=== PATIENT | female | born 1955 | race Caucasian/White ===

== ENCOUNTER 2017-09-30 06:56 | Day surgery (SDC) | payer MEDICARE, BC ==
[~2017-09-30 06:56] MED LIST: Lidocaine 1% with EPINEPHrine 1:100,000 50 ML MDV ONE
[2017-09-30] MEDS ORDERED: Dextrose 5%-Lactated Ringers 1,000 ML IV SCH (07:30)
[2017-09-30] MEDS ORDERED: Clindamycin Phosphate 900 MG in Sodium Chloride 0.9% 100 ML IV ONE (08:00)
[2017-09-30] MEDS ORDERED: Midazolam 1 MG/ML 2 ML SDV ONE (08:11)
[2017-09-30] MEDS ORDERED: fentaNYL 100 MCG/2 ML SDV ONE (08:11)
[2017-09-30] MEDS ORDERED: Propofol 200 MG/20 ML SDV ONE (08:11)
[2017-09-30] MEDS ORDERED: Lidocaine 0.5% 50 ML SDV ONE (08:13)
[2017-09-30] MEDS ORDERED: HYDROmorphone 2 MG Tab PO PRN (09:42)
[2017-09-30 10:21] VITALS: BP 168/80
--- NOTE | 2017-09-30 15:27 | OR ---
DATE OF PROCEDURE: 09/30/2017 PREOPERATIVE DIAGNOSIS: Recurrent right carpal tunnel syndrome. POSTOPERATIVE DIAGNOSIS: Recurrent right carpal tunnel syndrome. OPERATIVE PROCEDURE: Right carpal tunnel release ([id number]). ANESTHESIA: IV block plus sedation. METAL MACHINE SETTER: Shahana Shukla MS-3. INDICATION FOR PROCEDURE: This is a 62-year-old presenting with recurrent carpal tunnel syndrome. She originally had bilateral carpal tunnel releases in 1992, presents now with recurrent symptoms on the right side predominantly. An EMG was obtained which confirmed compression of the median nerve at the carpal tunnel. The plan is to proceeded with a redo carpal tunnel release. Potential risks including bleeding, infection, injury to underlying structures such as the median nerve and/or its branches, possible incomplete relief of symptoms following the procedure were all reviewed, and the patient wishes to proceed. DETAILS OF PROCEDURE: The patient was taken to the operating room and placed in a supine position. IV sedation was administered after which an intravenous block was placed affecting the right forearm and hand. Those areas were then prepped and draped. The patient did have quite a bit in the way of retained blood within the arm, but this was evacuated as needed during the course of the procedure. A standard carpal tunnel incision was made and carried down through the skin and subcutaneous tissue. The transverse carpal ligament was identified and then divided for the length of the carpal tunnel, including extending onto the palm of hand. It was quite thick and did retract under considerable tension. The underlying median nerve was otherwise intact. During the division of the median nerve, care was taken to maintain an ulnar orientation with regard to the underlying nerve to minimize chances of nerve branch injuries. At that point, no further problems were noted. The subdermal tissues were approximated with some 4-0 Vicryl stitch, and the skin with a 5-0 Prolene skin stitch. Dressing was applied. The patient was taken to the recovery room in a satisfactory condition. There were no evident complications. Ruben Evans MD /[id number]
== END 2017-09-30 10:38 | disposition home or self-care (01) ==
LOC: JP.SDS 06:56
PROVIDERS: ATTEND Surgery
DX: G56.01 Carpal tunnel syndrome, right upper limb (principal); I10 Essential (primary) hypertension; K21.9 Gastro-esophageal reflux disease without esophagitis; E66.9 Obesity, unspecified; Z88.0 Allergy status to penicillin; Z88.1 Allergy status to other antibiotic agents; Z91.09 Other allergy status, other than to drugs and biological substances
CPT/HCPCS: 64721; A9270; J2250; J2704; J3010; J7030; J7042; S0077

== ENCOUNTER 2018-02-25 20:22 | Inpatient (IN) | payer MEDICARE, BC ==
[2018-02-25] MEDS ORDERED: Ondansetron 4 MG/2 ML SDV IVPUSH ONE (21:13)
[2018-02-25] MEDS ORDERED: HYDROmorphone 0.5 MG/0.5 ML Syringe IVPUSH ONE (21:13)
[2018-02-25] MEDS ORDERED: Sodium Chloride 0.9% 1,000 ML IV SCH (21:15)
--- NOTE | 2018-02-25 21:18 | EDM.PDOC ---
ED HPI GENERAL MEDICAL PROBLEM - General Chief Complaint: Abdominal Pain Stated Complaint: BLADDER/RECTAL PAIN Time Seen by Provider: 02/25/18 21:00 Source of Information: Reports: Patient History Limitations: Reports: No Limitations - History of Present Illness INITIAL COMMENTS - FREE TEXT/NARRATIVE: Cavity is a 62-year-old female who presents to the emergency Department today with complaints of lower abdominal pain and pressure. Patient is concerned that her bladder is coming out of she has had a rectocele and cystocele in the past. Patient reports that she did have cheese with dinner which normally, some GI upset but this is worse than normal. Patient has not taken anything for pain, she reports bile-type diarrhea, she does endorse nausea but denies any vomiting. Patient has had her gallbladder out in the past, she denies any excessive alcohol use. Patient denies any hematochezia. Onset: Today, Sudden Duration: Day(s): (1) Treatments BOOKKEEPER ASSISTANT: Reports: Other (see below) Other Treatments BOOKKEEPER ASSISTANT: none Lower Pelvic Pain Score (Numeric/FACES): 10 - Related Data Allergies Allergy/AdvReac Type Severity Reaction Status Date / Time Penicillins Allergy Severe Difficulty Verified 02/25/18 21:08 Breathing alcohol Allergy Swelling Verified 02/25/18 21:08 hydromorphone [From Dilaudid] Allergy Airway Verified 02/25/18 22:51 Tightness tetracycline Allergy Rash Verified 02/25/18 21:08 Home Meds: Home Meds Allopurinol [Zyloprim] 100 mg PO BID 08/30/13 [History] Metoprolol Succinate [Toprol XL] 50 mg PO DAILY 08/30/13 [History] Levothyroxine Sodium [Synthroid] 25 mcg PO DAILY 11/19/14 [History] Multivit-Min/Iron Fum/Folic AC [Zgleq-Pepxpzt-Vznbysqx Tablet] 1 each PO DAILY 09/29/17 [History] Celecoxib 200 mg PO DAILY 02/25/18 [History] Past Medical History HEENT History: Reports: Impaired Vision Other HEENT History: readers Cardiovascular History: Reports: Hypertension Gastrointestinal History: Reports: Chronic Constipation Genitourinary History: Reports: Other (See Below) Other Genitourinary History: bladder IMPORT/EXPORT SPECIALIST History: Reports: Endometriosis, Musculoskeletal History: Reports: None Neurological History: Reports: Concussion, Head Trauma Psychiatric History: Reports: Anxiety Endocrine/Metabolic History: Reports: Hypothyroidism, Obesity/BMI 30+ - Infectious Disease History Infectious Disease History: Reports: Chicken Pox, Measles, Mumps, Pertussis ( Whooping Cough), Shingles - Past Surgical History Head Surgeries/Procedures: Reports: None HEENT Surgical History: Reports: LASIK, Tonsillectomy Cardiovascular Surgical History: Reports: None GI Surgical History: Reports: Cholecystectomy Other GI Surgeries/Procedures: Yvonne Fundoplication Female Surgical History: Reports: Breast Biopsy, Breast Reduction, Hysterectomy Endocrine Surgical History: Reports: None Neurological Surgical History: Reports: Other (See Below) Other Neurological Surgeries/Procedures: rods in lower back Musculoskeletal Surgical History: Reports: Other (See Below) Other Musculoskeletal Surgeries/Procedures:: 4 rods in back Dermatological Surgical History: Reports: Skin Biopsy Social & Family History - Family History Family Medical History: Noncontributory - Caffeine Use Caffeine Use: Reports: Coffee, Soda ED ROS GENERAL - Review of Systems Review Of Systems: ROS reveals no pertinent complaints other than HPI. ED EXAM, GI/ABD - Physical Exam Exam: See Below Exam Limited By: No Limitations General Appearance: Alert, WD/WN, No Apparent Distress Ears: Normal External Exam Throat/Mouth: Normal Oropharynx Head: Atraumatic Respiratory/Chest: No Respiratory Distress, Lungs Clear, Normal Breath Sounds Cardiovascular: Normal Peripheral Pulses, Regular Rate, Rhythm, No Murmur GI/Abdominal Exam: Normal Bowel Sounds, Soft, Tender (generalized) (Female) Exam: Normal External Exam, Normal Bimanual Exam. No: Vaginal Discharge Neurological: Alert, Oriented Psychiatric: Normal Affect, Normal Mood Skin Exam: Warm, Dry, Intact Course - Vital Signs Last Recorded V/S: Last Vital Signs Temp 36.3 C 02/25/18 21:57 Pulse 74 02/25/18 23:38 Resp 14 02/25/18 21:57 BP 160/80 H 02/25/18 23:38 Pulse Ox 95 02/25/18 23:38 0-patient had Dilaudid and then developed a tight sensation in her throat and redness around her neck, she was given Benadryl and Solu-Medrol with resolution of her symptoms. Patient is not certain if she has had Dilaudid in the past, she is not certain if she has had morphine in the past. Patient reports that she gets older she seems to be developing more allergies. 2300-awaiting CT scan results, patient did have a white count of 12.3 with a left shift, CMP returns with a potassium of 3.5, BUN of 26 and creatinine 1.3. CRP is mildly elevated at 0.7. Patient is feeling much better, she is so far had a liter of fluid and Zofran, her reaction to the Dilaudid seems to have resolved. CT scan shows an acute diverticulitis with contained perforation of the mid sigmoid colon. I discussed her case with her on-call surgeon, Dr. De Leon, he feels patient can be kept here and managed medically. I discussed patient with Dr. Gaona who will be in to admit patient. Patient and family updated on plan of care and are agreeable. Patient was started on Cipro and Flagyl. - Orders/Labs/Meds Orders: Active Orders 24 hr Category Date Time Status Peripheral IV Care [RC] . DIRECTED Care 02/25/18 21:12 Active Abdomen Pelvis w Cont [CT] Stat Exams 02/25/18 22:09 Taken UA W/MICROSCOPIC [URIN] Stat Lab 02/25/18 22:14 Ordered Ciprofloxacin in D5W [Cipro in D5W 400 MG/200 ML] 400 Med 02/26/18 00:19 Active mg Premix Bag 1 bag IV ONETIME Iopamidol [Isovue-300 (61%)] Med 02/25/18 22:30 Active 132 ml IV . DIRECTED Sodium Chloride 0.9% [Normal Saline] 1,000 ml Med 02/25/18 21:15 Active IV ASDIRECTED Sodium Chloride 0.9% [Normal Saline] 80 ml Med 02/25/18 22:30 Active IV ASDIRECTED Sodium Chloride 0.9% [Saline Flush] Med 02/25/18 21:12 Active 10 ml FLUSH ASDIRECTED PRN metroNIDAZOLE/Normal Saline [Flagyl 500 MG in NS 100 ML Med 02/26/18 00:19 Active ] 500 mg Premix Bag 1 bag IV ONETIME Peripheral IV Insertion Adult [OM.PC] Routine Oth 02/25/18 21:12 Ordered Medication Orders Sodium Chloride (Normal Saline) 1,000 mls @ 999 mls/hr IV ASDIRECTED ALLAN Last Admin: 02/25/18 21:28 Dose: 999 mls/hr Sodium Chloride (Normal Saline) 80 mls @ 3 mls/sec IV ASDIRECTED ALLAN Last Admin: 02/25/18 22:39 Dose: 3 mls/sec Ciprofloxacin/Dextrose 400 mg/ (Premix) 200 mls @ 200 mls/hr IV ONETIME ONE Stop: 02/26/18 01:18 Metronidazole 500 mg/ Premix 100 mls @ 100 mls/hr IV ONETIME ONE Stop: 02/26/18 01:18 Last Admin: 02/26/18 00:54 Dose: 100 mls/hr Iopamidol (Isovue-300 (61%)) 132 ml IV . DIRECTED ALLAN Last Admin: 02/25/18 22:39 Dose: 132 ml Sodium Chloride (Saline Flush) 10 ml FLUSH ASDIRECTED PRN PRN Reason: Keep Vein Open Last Admin: 02/25/18 22:39 Dose: 10 ml Admin: 02/25/18 21:49 Dose: 10 ml Admin: 02/25/18 21:30 Dose: 10 ml Labs: Laboratory Tests 02/25/18 02/25/18 02/25/18 Range/Units 21:33 21:33 21:33 WBC 12.3 H (4.5-11.0) K/uL RBC 4.55 (3.30-5.50) M/uL Hgb 13.1 (12.0-15.0) g/dL Hct 40.6 (36.0-48.0) % MCV 89 (80-98) fL MCH 29 (27-31) pg MCHC 32 (32-36) % Plt Count 380 (150-400) K/uL Neut % (Auto) 70 H (36-66) % Lymph % (Auto) 23 L (24-44) % Navarro % (Auto) 7 H (2-6) % Eos % (Auto) 0 L (2-4) % Baso % (Auto) 0 (0-1) % Sodium 141 (140-148) mmol/L Potassium 3.5 L (3.6-5.2) mmol/L Chloride 105 (100-108) mmol/L Carbon Dioxide 29 (21-32) mmol/L Anion Gap 10.5 (5.0-14.0) mmol/L BUN 26 H (7-18) mg/dL Creatinine 1.3 H (0.6-1.0) mg/dL Est Cr Clr Drug Dosing 38.75 mL/min Estimated GFR (MDRD) 42 L (>60) Glucose 102 (74-106) mg/dL Calcium 8.8 (8.5-10.1) mg/dL Total Bilirubin 0.3 (0.2-1.0) mg/dL AST 15 (15-37) U/L ALT 33 (12-78) U/L Alkaline Phosphatase 107 (46-116) U/L C-Reactive Protein 0.87 H (0.0-0.3) mg/dL Total Protein 7.1 (6.4-8.2) g/dL Albumin 3.5 (3.4-5.0) g/dL Globulin 3.6 H (2.3-3.5) g/dL Albumin/Globulin Ratio 1.0 L (1.2-2.2) Lipase 93 (73-393) U/L Urine Color Urine Appearance Urine pH (4.5-8.0) Ur Specific Vincent (1.008-1.030) Urine Protein (NEGATIVE) mg/dL Urine Glucose (UA) (NEGATIVE) mg/dL Urine Ketones (NEGATIVE) mg/dL Urine Occult Blood (NEGATIVE) Urine Nitrite (NEGATIVE) Urine Bilirubin (NEGATIVE) Urine Urobilinogen (NORMAL) mg/dL Ur Leukocyte Esterase (NEGATIVE) Urine RBC (0-5) Urine WBC (0-5) Ur Epithelial Cells Amorphous Sediment Urine Bacteria Urine Mucus // Range/Units 22:14 WBC (4.5-11.0) K/uL RBC (3.30-5.50) M/uL Hgb (12.0-15.0) g/dL Hct (36.0-48.0) % MCV (80-98) fL MCH (27-31) pg MCHC (32-36) % Plt Count (150-400) K/uL Neut % (Auto) (36-66) % Lymph % (Auto) (24-44) % Navarro % (Auto) (2-6) % Eos % (Auto) (2-4) % Baso % (Auto) (0-1) % Sodium (140-148) mmol/L Potassium (3.6-5.2) mmol/L Chloride (100-108) mmol/L Carbon Dioxide (21-32) mmol/L Anion Gap (5.0-14.0) mmol/L BUN (7-18) mg/dL Creatinine (0.6-1.0) mg/dL Est Cr Clr Drug Dosing mL/min Estimated GFR (MDRD) (>60) Glucose (74-106) mg/dL Calcium (8.5-10.1) mg/dL Total Bilirubin (0.2-1.0) mg/dL AST (15-37) U/L ALT (12-78) U/L Alkaline Phosphatase (46-116) U/L C-Reactive Protein (0.0-0.3) mg/dL Total Protein (6.4-8.2) g/dL Albumin (3.4-5.0) g/dL Globulin (2.3-3.5) g/dL Albumin/Globulin Ratio (1.2-2.2) Lipase (73-393) U/L Urine Color Yellow Urine Appearance Clear Urine pH 5.0 (4.5-8.0) Ur Specific Vincent 1.020 (1.008-1.030) Urine Protein Negative (NEGATIVE) mg/dL Urine Glucose (UA) Normal (NEGATIVE) mg/dL Urine Ketones Negative (NEGATIVE) mg/dL Urine Occult Blood Negative (NEGATIVE) Urine Nitrite Negative (NEGATIVE) Urine Bilirubin Negative (NEGATIVE) Urine Urobilinogen Normal (NORMAL) mg/dL Ur Leukocyte Esterase Negative (NEGATIVE) Urine RBC 0-5 (0-5) Urine WBC 0-5 (0-5) Ur Epithelial Cells Moderate Amorphous Sediment Few Urine Bacteria Few Urine Mucus Few Meds: Medications Generic Name Dose Route Start Last Admin Trade Name Freq PRN Reason Stop Dose Admin Sodium Chloride 1,000 mls @ 999 mls/hr 02/25/18 21:15 02/25/18 21:28 Normal Saline IV 999 mls/hr ASDIRECTED ALLAN Administration Sodium Chloride 80 mls @ 3 mls/sec 02/25/18 22:30 02/25/18 22:39 Normal Saline IV 3 mls/sec ASDIRECTED ALLAN Administration Ciprofloxacin/Dextrose 400 mg/ 200 mls @ 200 mls/hr 02/26/18 00:19 Premix IV 02/26/18 01:18 ONETIME ONE Metronidazole 500 mg/ Premix 100 mls @ 100 mls/hr 02/26/18 00:19 02/26/18 00: 54 IV 02/26/18 01:18 100 mls/hr ONETIME ONE Administration Iopamidol 132 ml 02/25/18 22:30 02/25/18 22:39 Isovue-300 (61%) IV 132 ml . DIRECTED ALLAN Administration Sodium Chloride 10 ml 02/25/18 21:12 02/25/18 22:39 Saline Flush FLUSH 10 ml ASDIRECTED PRN Administration Keep Vein Open Discontinued Medications Generic Name Dose Route Start Last Admin Trade Name Freq PRN Reason Stop Dose Admin Diphenhydramine HCl 50 mg 02/25/18 21:42 02/25/18 21:44 Benadryl IVPUSH 02/25/18 21:43 50 mg ONETIME ONE Administration Diphenhydramine HCl Confirm 02/25/18 21:43 02/25/18 21:49 Benadryl Administered 02/25/18 21:44 Not Given Dose 50 mg .ROUTE .STK-MED ONE Hydromorphone HCl 0.5 mg 02/25/18 21:13 02/25/18 21:33 Dilaudid IVPUSH 02/25/18 21:14 0.5 mg ONETIME ONE Administration Methylprednisolone Sodium Succinate 125 mg 02/25/18 21:42 02/25/18 21:45 Solu-Medrol IVPUSH 02/25/18 21:43 125 mg ONETIME ONE Administration Methylprednisolone Sodium Succinate Confirm 02/25/18 21:43 02/25/18 21:49 Solu-Medrol Administered 02/25/18 21:44 Not Given Dose 125 mg .ROUTE .STK-MED ONE Ondansetron HCl 4 mg 02/25/18 21:13 02/25/18 21:30 Zofran IVPUSH 02/25/18 21:14 4 mg ONETIME ONE Administration Departure - Departure Time of Disposition: 02:00 Disposition: Admitted As Inpatient 66 Condition: Good Clinical Impression: Acute diverticulitis of intestine, Perforation bowel - Discharge Information Referrals: Channing Noel MD [Primary Care Provider] - Forms: ED Department Discharge - My Orders Last 24 Hours: My Active Orders 02/25/18 21:12 Peripheral IV Care [RC] . DIRECTED Sodium Chloride 0.9% [Saline Flush] 10 ml FLUSH ASDIRECTED PRN Peripheral IV Insertion Adult [OM.PC] Routine 02/25/18 21:15 Sodium Chloride 0.9% [Normal Saline] 1,000 ml IV ASDIRECTED 02/25/18 22:09 Abdomen Pelvis w Cont [CT] Stat 02/25/18 22:14 UA W/MICROSCOPIC [URIN] Stat 02/25/18 22:30 Iopamidol [Isovue-300 (61%)] 132 ml IV . DIRECTED Sodium Chloride 0.9% [Normal Saline] 80 ml IV ASDIRECTED 02/26/18 00:19 Ciprofloxacin in D5W [Cipro in D5W 400 MG/200 ML] 400 mg Premix Bag 1 bag IV ONETIME metroNIDAZOLE/Normal Saline [Flagyl 500 MG in NS 100 ML] 500 mg Premix Bag 1 bag IV ONETIME - Assessment/Plan Last 24 Hours: My Active Orders 02/25/18 21:12 Peripheral IV Care [RC] . DIRECTED Sodium Chloride 0.9% [Saline Flush] 10 ml FLUSH ASDIRECTED PRN Peripheral IV Insertion Adult [OM.PC] Routine 02/25/18 21:15 Sodium Chloride 0.9% [Normal Saline] 1,000 ml IV ASDIRECTED 02/25/18 22:09 Abdomen Pelvis w Cont [CT] Stat 02/25/18 22:14 UA W/MICROSCOPIC [URIN] Stat 02/25/18 22:30 Iopamidol [Isovue-300 (61%)] 132 ml IV . DIRECTED Sodium Chloride 0.9% [Normal Saline] 80 ml IV ASDIRECTED 02/26/18 00:19 Ciprofloxacin in D5W [Cipro in D5W 400 MG/200 ML] 400 mg Premix Bag 1 bag IV ONETIME metroNIDAZOLE/Normal Saline [Flagyl 500 MG in NS 100 ML] 500 mg Premix Bag 1 bag IV ONETIME
[2018-02-25] MEDS: Sodium Chloride 0.9% 10 ML Syringe FLUSH PRN ×3 (21:30→22:39)
[2018-02-25] MEDS ORDERED: methylPREDNISolone Sodium Succinate 125 MG/2 ML SDV IVPUSH ONE (21:42)
[2018-02-25] MEDS ORDERED: diphenhydrAMINE 50 MG/ML SDV IVPUSH ONE (21:42)
[2018-02-25] MEDS ORDERED: diphenhydrAMINE 50 MG/ML SDV ONE (21:43)
[2018-02-25] MEDS ORDERED: methylPREDNISolone Sodium Succinate 125 MG/2 ML SDV ONE (21:43)
[2018-02-25] MEDS ORDERED: Iopamidol 612 MG/ML 150 ML Bottle IV SCH (22:30)
[2018-02-25] MEDS ORDERED: Sodium Chloride 0.9% 80 ML IV SCH (22:30)
[2018-02-26] MEDS ORDERED: metroNIDAZOLE/Normal Saline 500 MG in Premix Bag 1 BAG IV ONE (00:19)
[2018-02-26] MEDS ORDERED: Ciprofloxacin in D5W 400 MG in Premix Bag 1 BAG IV ONE ×2 (00:19)
[2018-02-26] MEDS ORDERED: Ciprofloxacin in D5W 400 MG in Premix Bag 1 BAG IV SCH ×2 (02:00)
[2018-02-26] MEDS ORDERED: metroNIDAZOLE/Normal Saline 500 MG in Premix Bag 1 BAG IV SCH (02:00)
[2018-02-26] MEDS: Sodium Chloride 0.9% 1,000 ML IV SCH ×3 (02:15→19:27)
--- NOTE | 2018-02-26 03:33 | HP ---
LOCATION: [facility]. CHIEF COMPLAINT: Left lower quadrant abdominal pain. HISTORY OF PRESENT ILLNESS: A 62-year-old who has had a hysterectomy and bladder surgery in the past, ate dinner down at [employer]. On her way home, she started having the discomfort, came home. She had a bowel movement, but it did not help her pain. She came into the emergency room for further evaluation. Once there into the emergency room, was noted to have acute diverticulitis, midsigmoid colon associated with contained perforation. No evidence of abscess formation. Nonspecific focus of gas within the urinary bladder and I was asked to admit the patient for further evaluation and treatment. The patient has had some nausea associated with the pain. PAST MEDICAL HISTORY: 1. She has never had a colonoscopy. She has tried it 3 times, but has failed the prep because of increased nausea. Of note, though, that her sister recently had a polyp removed and she feels like she has probably had diverticulitis in the past and her mom has had colon cancer. Hysterectomy with bladder surgery, she has had her gallbladder removed, she has had back surgery, she has had multiple foot surgeries and just had injections in her feet. 2. Hypothyroidism. MEDICATIONS: Allopurinol 100 mg b.i.d., Celebrex 200 mg daily, levothyroxine 25 mcg daily, metoprolol-XL 50 mg daily, multivitamin. ALLERGIES: PENICILLIN, ALCOHOL, HYDROMORPHONE, TETRACYCLINE. SHE WAS GIVEN DILAUDID HERE AND ENDED UP, I BELIEVE, HAVING A REACTION. SOCIAL HISTORY: She is a nonsmoker. No alcohol use. FAMILY HISTORY: Mother with colon cancer. Sister, she thinks with diverticulitis and a polyp removed. REVIEW OF SYSTEMS: Denies headaches, vision changes, upper respiratory symptoms. No chest pain or shortness of breath. She has had nausea with left lower quadrant abdominal pain. No specific urinary symptoms, although she thought may be she had something with her bladder tonight. Denies any swelling in her legs. No skin problems or orthopedic complaints as above with chronic foot problems. OBJECTIVE: VITAL SIGNS: Temperature 36.3, pulse 60s to 70s, blood pressure initially 183/87 and latest was 160/80, O2 saturation 88% on room air, 97% on 2 liters. HEENT: Pharynx: Slightly dry mucous membranes in her mouth. NECK: Supple. No adenopathy or thyromegaly. LUNGS: Clear. HEART: Regular without murmurs. ABDOMEN: Soft, but did have discomfort in the left lower quadrant. There is no mass, organomegaly palpated. No distention. EXTREMITIES: She has scarring of her right foot. There is no swelling in her legs. SKIN: Negative. NEURO: Cranial nerves II through XII grossly intact. Seemed to be alert and oriented. IMAGING: CT scan showed she had sigmoid diverticulitis with contained perforation. No evidence of abscess. Nonspecific focus of gas in the urinary bladder. LABORATORY DATA: White count 12.3 with 70% neutrophils, 23% lymphocytes, 7% monocytes, hemoglobin 13.1, platelets 380,000. Sodium 141, potassium 3.5, BUN is 26, creatinine 1.3, glucose 102. Liver functions were normal. C-reactive protein was 0.87. Urinalysis was negative. ASSESSMENT: 1. Acute sigmoid diverticulitis. The patient has been started on IV metronidazole and Cipro, which we will continue. ER staff has contacted Surgery, I believe, Dr. Arroyo. We will transfer her care to the hospitalist service in the morning. Admit her as inpatient. Anticipate more than 2 midnight stays. 2. The patient had previous hysterectomy with bladder surgery with some recent problems with bladder spasms and she had side effects of initial medication. I am not sure what they put her on. We are going to try another medication, but it was too expensive, so she is going to live with it. Angel Gaona MD /[id number]
[2018-02-26] MEDS ORDERED: Morphine 2 MG/ML Syringe IVPUSH PRN (06:05)
[2018-02-26] MEDS ORDERED: Morphine 2 MG/ML Syringe ONE (06:15)
[2018-02-26] MEDS: Ondansetron 4 MG/2 ML SDV IV PRN (08:34)
[2018-02-26] MEDS ORDERED: fentaNYL/Normal Saline 600 MCG/30 ML PCA Vial IV PRN (10:03)
[2018-02-26] MEDS ORDERED: Naloxone 0.4 MG/ML SDV IVPUSH PRN (10:03)
--- NOTE | 2018-02-26 10:05 | PCM.PN ---
- General Info Date of Service: 02/26/18 Subjective Update: Ms. Zapien is a 62-year-old woman who was admitted last night by Dr. Gaona with left lower quadrant abdominal pain secondary to diverticulitis. Pain started in the evening of admission and progressed, associated with diarrhea. CT scan of the abdomen shows evidence of sigmoid diverticulitis with a microperforation. Since admission has noted persistent pain, did have allergic reaction to Dilaudid in the emergency department. Functional Status: Reports: Urinating - Review of Systems General: Reports: Weakness. Denies: Fever, Chills Pulmonary: Reports: No Symptoms Cardiovascular: Reports: No Symptoms Gastrointestinal: Reports: Abdominal Pain, Decreased Appetite, Diarrhea. Denies : Difficulty Swallowing, Nausea, Vomiting - Patient Data Vitals - Most Recent: Last Vital Signs Temp 96.2 F 02/26/18 08:00 Pulse 58 L 02/26/18 08:00 Resp 16 02/26/18 08:00 BP 142/59 H 02/26/18 08:00 Pulse Ox 92 L 02/26/18 08:00 Weight - Most Recent: 201 lb 3.2 oz I&O - Last 24 Hours: Intake & Output 02/25/18 02/26/18 02/26/18 22:59 06:59 14:59 Intake Total 1844 Output Total 750 Balance 1094 Lab Results Last 24 Hours: Laboratory Results - last 24 hr 02/25/18 02/25/18 02/25/18 Range/Units 21:33 21:33 21:33 WBC 12.3 H (4.5-11.0) K/uL RBC 4.55 (3.30-5.50) M/uL Hgb 13.1 (12.0-15.0) g/dL Hct 40.6 (36.0-48.0) % MCV 89 (80-98) fL MCH 29 (27-31) pg MCHC 32 (32-36) % Plt Count 380 (150-400) K/uL Neut % (Auto) 70 H (36-66) % Lymph % (Auto) 23 L (24-44) % Door % (Auto) 7 H (2-6) % Eos % (Auto) 0 L (2-4) % Baso % (Auto) 0 (0-1) % Sodium 141 (140-148) mmol/L Potassium 3.5 L (3.6-5.2) mmol/L Chloride 105 (100-108) mmol/L Carbon Dioxide 29 (21-32) mmol/L Anion Gap 10.5 (5.0-14.0) mmol/L BUN 26 H (7-18) mg/dL Creatinine 1.3 H (0.6-1.0) mg/dL Est Cr Clr Drug Dosing 38.75 mL/min Estimated GFR (MDRD) 42 L (>60) Glucose 102 (74-106) mg/dL Calcium 8.8 (8.5-10.1) mg/dL Total Bilirubin 0.3 (0.2-1.0) mg/dL AST 15 (15-37) U/L ALT 33 (12-78) U/L Alkaline Phosphatase 107 (46-116) U/L C-Reactive Protein 0.87 H (0.0-0.3) mg/dL Total Protein 7.1 (6.4-8.2) g/dL Albumin 3.5 (3.4-5.0) g/dL Globulin 3.6 H (2.3-3.5) g/dL Albumin/Globulin Ratio 1.0 L (1.2-2.2) Lipase 93 (73-393) U/L Urine Color Urine Appearance Urine pH (4.5-8.0) Ur Specific [place] (1.008-1.030) Urine Protein (NEGATIVE) mg/dL Urine Glucose (UA) (NEGATIVE) mg/dL Urine Ketones (NEGATIVE) mg/dL Urine Occult Blood (NEGATIVE) Urine Nitrite (NEGATIVE) Urine Bilirubin (NEGATIVE) Urine Urobilinogen (NORMAL) mg/dL Ur Leukocyte Esterase (NEGATIVE) Urine RBC (0-5) Urine WBC (0-5) Ur Epithelial Cells Amorphous Sediment Urine Bacteria Urine Mucus 02/25/18 02/26/18 02/26/18 Range/Units 22:14 05:47 05:47 WBC 22.1 H (4.5-11.0) K/uL RBC 4.49 (3.30-5.50) M/uL Hgb 12.8 (12.0-15.0) g/dL Hct 40.2 (36.0-48.0) % MCV 90 (80-98) fL MCH 29 (27-31) pg MCHC 32 (32-36) % Plt Count 345 (150-400) K/uL Neut % (Auto) (36-66) % Lymph % (Auto) (24-44) % Door % (Auto) (2-6) % Eos % (Auto) (2-4) % Baso % (Auto) (0-1) % Sodium 141 (140-148) mmol/L Potassium 3.7 (3.6-5.2) mmol/L Chloride 105 (100-108) mmol/L Carbon Dioxide 23 (21-32) mmol/L Anion Gap 12.8 (5.0-14.0) mmol/L BUN 24 H (7-18) mg/dL Creatinine 1.2 H (0.6-1.0) mg/dL Est Cr Clr Drug Dosing 41.97 mL/min Estimated GFR (MDRD) 46 L (>60) Glucose 157 H (74-106) mg/dL Calcium 8.6 (8.5-10.1) mg/dL Total Bilirubin (0.2-1.0) mg/dL AST (15-37) U/L ALT (12-78) U/L Alkaline Phosphatase (46-116) U/L C-Reactive Protein (0.0-0.3) mg/dL Total Protein (6.4-8.2) g/dL Albumin (3.4-5.0) g/dL Globulin (2.3-3.5) g/dL Albumin/Globulin Ratio (1.2-2.2) Lipase (73-393) U/L Urine Color Yellow Urine Appearance Clear Urine pH 5.0 (4.5-8.0) Ur Specific [place] 1.020 (1.008-1.030) Urine Protein Negative (NEGATIVE) mg/dL Urine Glucose (UA) Normal (NEGATIVE) mg/dL Urine Ketones Negative (NEGATIVE) mg/dL Urine Occult Blood Negative (NEGATIVE) Urine Nitrite Negative (NEGATIVE) Urine Bilirubin Negative (NEGATIVE) Urine Urobilinogen Normal (NORMAL) mg/dL Ur Leukocyte Esterase Negative (NEGATIVE) Urine RBC 0-5 (0-5) Urine WBC 0-5 (0-5) Ur Epithelial Cells Moderate Amorphous Sediment Few Urine Bacteria Few Urine Mucus Few Med Orders - Current: Current Medications Fentanyl Citrate (Fentanyl In Ns 20 Mcg/Ml 30 Ml Dolly Operator) 0 mcg IV ASDIRECTED PRN; Protocol PRN Reason: Pain Sodium Chloride (Normal Saline) 1,000 mls @ 125 mls/hr IV ASDIRECTED [facility] Ciprofloxacin/Dextrose 400 mg/ (Premix) 200 mls @ 200 mls/hr IV Q12H [facility] Metronidazole 500 mg/ Premix 100 mls @ 100 mls/hr IV Q8H [facility] Naloxone HCl (Narcan) 0.4 mg IVPUSH Q2M PRN PRN Reason: Respiratory Distress Ondansetron HCl (Zofran) 4 mg IV Q4H PRN PRN Reason: Nausea/Vomiting Last Admin: 02/26/18 08:34 Dose: 4 mg Sodium Chloride (Saline Flush) 10 ml FLUSH ASDIRECTED PRN PRN Reason: Keep Vein Open Last Admin: 02/25/18 22:39 Dose: 10 ml Discontinued Medications Diphenhydramine HCl (Benadryl) 50 mg IVPUSH ONETIME ONE Stop: 02/25/18 21:43 Last Admin: 02/25/18 21:44 Dose: 50 mg Diphenhydramine HCl (Benadryl) Confirm Administered Dose 50 mg .ROUTE .STK-MED ONE Stop: 02/25/18 21:44 Last Admin: 02/25/18 21:49 Dose: Not Given Hydromorphone HCl (Dilaudid) 0.5 mg IVPUSH ONETIME ONE Stop: 02/25/18 21:14 Last Admin: 02/25/18 21:33 Dose: 0.5 mg Sodium Chloride (Normal Saline) 1,000 mls @ 999 mls/hr IV ASDIRECTED [facility] Last Admin: 02/25/18 21:28 Dose: 999 mls/hr Sodium Chloride (Normal Saline) 80 mls @ 3 mls/sec IV ASDIRECTED [facility] Last Admin: 02/25/18 22:39 Dose: 3 mls/sec Ciprofloxacin/Dextrose 400 mg/ (Premix) 200 mls @ 200 mls/hr IV ONETIME ONE Stop: 02/26/18 01:18 Last Admin: 02/26/18 02:19 Dose: 200 mls/hr Metronidazole 500 mg/ Premix 100 mls @ 100 mls/hr IV ONETIME ONE Stop: 02/26/18 01:18 Last Admin: 02/26/18 00:54 Dose: 100 mls/hr Sodium Chloride (Normal Saline) 1,000 mls @ 125 mls/hr IV ASDIRECTED [facility] Last Admin: 02/26/18 08:11 Dose: 125 mls/hr Ciprofloxacin/Dextrose 400 mg/ (Premix) 200 mls @ 200 mls/hr IV Q12H [facility] Last Admin: 02/26/18 06:13 Dose: Not Given Metronidazole 500 mg/ Premix 100 mls @ 100 mls/hr IV Q8H [facility] Last Admin: 02/26/18 06:14 Dose: Not Given Iopamidol (Isovue-300 (61%)) 132 ml IV . DIRECTED [facility] Last Admin: 02/25/18 22:39 Dose: 132 ml Methylprednisolone Sodium Succinate (Solu-Medrol) 125 mg IVPUSH ONETIME ONE Stop: 02/25/18 21:43 Last Admin: 02/25/18 21:45 Dose: 125 mg Methylprednisolone Sodium Succinate (Solu-Medrol) Confirm Administered Dose 125 mg .ROUTE .STK-MED ONE Stop: 02/25/18 21:44 Last Admin: 02/25/18 21:49 Dose: Not Given Morphine Sulfate (Morphine) 1 mg IVPUSH Q1H PRN PRN Reason: Abdominal Pain Last Admin: 02/26/18 06:17 Dose: 1 mg Morphine Sulfate (Morphine) Confirm Administered Dose 2 mg .ROUTE .STK-MED ONE Stop: 02/26/18 06:16 Last Admin: 02/26/18 06:35 Dose: Not Given Ondansetron HCl (Zofran) 4 mg IVPUSH ONETIME ONE Stop: 02/25/18 21:14 Last Admin: 02/25/18 21:30 Dose: 4 mg - Exam Quality Assessment: DVT Prophylaxis General: Alert, Oriented, Cooperative, Moderate Distress Lungs: Clear to Auscultation, Normal Respiratory Effort Cardiovascular: Regular Rate, Regular Rhythm, No Murmurs GI/Abdominal Exam: Soft, No Organomegaly, Distended, Guarding, Tender. No: Rigid, Rebound Extremities: Non-Tender, No Pedal Edema Skin: Warm, Dry - Problem List Review Problem List Initiated/Reviewed/Updated: Yes - My Orders Last 24 Hours: My Active Orders 02/26/18 10:03 Communication Order [RC] STAT Notify Provider [RC] PRN LINEN CHECKER Record [RC] PER UNIT ROUTINE Pulse Oximetry [RC] CONTINUOUS Naloxone [Narcan] 0.4 mg IVPUSH Q2M PRN fentaNYL/Normal Saline [fentaNYL in NS 20 MCG/ML 30 ML LINEN CHECKER] See Protocol IV ASDIRECTED PRN Medication Discontinuation Instructions [OM.PC] Stat 02/27/18 05:00 CBC WITH AUTO DIFF [HEME] Timed COMPREHENSIVE METABOLIC PN,CMP [CHEM] Timed MAGNESIUM [CHEM] Timed - Plan Plan:: ASSESSMENT AND PLAN COMPLICATED SIGMOID DIVERTICULITIS-evidence of microperforation noted on CT scan , current plan is for conservative management. Continues to experience significant pain. -Fentanyl LINEN CHECKER for pain control -Continue current antibiotic therapy with metronidazole and ciprofloxacin -IV fluids for hydration -Dr. Arroyo to please see today for surgical consult and follow-up MAINTENANCE ISSUES -DVT prophylaxis; Lovenox 40 mg subcutaneous daily -GI prophylaxis; not indicated -Ruiz catheter; not indicated -Nutrition; nothing by mouth with ice chips -Nicotine dependence; not required CODE STATUS-FULL CODE ADMISSION STATUS-patient will be admitted to inpatient status, expect at least a 2 night hospital stay for evaluation and management of problems as outlined above. At the time of this admission I do not reasonably expected evaluation and management of this problem will require more than a 96 hour hospital stay. DISPOSITION-anticipate discharge to home after the hospital stay. PRIMARY CARE PROVIDER-Dr. Noel
--- NOTE | 2018-02-26 10:12 | PCM.CONS ---
H&P History of Present Illness - General Date of Service: 02/26/18 Admit Problem/Dx: Admission Diagnosis/Problem Admission Diagnosis/Problem Diverticulitis Source of Information: Patient History Limitations: Reports: No Limitations - History of Present Illness Initial Comments - Free Text/Narative: This 62 year old white female went to supper last night in [place], [place]. Supper included some cheese. On the way home she began experiencing some crampy abdominal pain. Upon arriving home she had a large, soft BM which did not resolve the pain. He pain waxed and waned. It became severe enough that she came to the ER where a CT scan showed acute diverticulitis with a contained perforation. She was admitted for bowel rest and IV antibiotics. She possibly feels a little better today. She has had no prior similar complaints. No fever/ chills. Prior abdominal surgery includes a cholecystectomy, hysterectomy, and bladder/rectum suspension. Onset of Symptoms: Reports: Gradual Symptom Onset Date: 02/25/18 Symptom Onset Time: 20:00 Duration of Symptoms: Reports: Hour(s): Location: Reports: Abdomen Quality: Reports: Other (Crampy ) Improves with: Reports: None Worsens with: Reports: None Context: Reports: Other (Ate cheese) Associated Symptoms: Reports: No Other Symptoms Lower Pelvic Pain Score (Numeric/FACES): 4 - Related Data Allergies/Adverse Reactions: Allergies Allergy/AdvReac Type Severity Reaction Status Date / Time Penicillins Allergy Severe Difficulty Verified 02/25/18 21:08 Breathing alcohol Allergy Swelling Verified 02/25/18 21:08 hydromorphone [From Dilaudid] Allergy Airway Verified 02/25/18 22:51 Tightness tetracycline Allergy Rash Verified 02/25/18 21:08 Home Medications: Home Meds Allopurinol [Zyloprim] 100 mg PO BID 08/30/13 [History] Metoprolol Succinate [Toprol XL] 50 mg PO DAILY 08/30/13 [History] Levothyroxine Sodium [Synthroid] 25 mcg PO DAILY 11/19/14 [History] Multivit-Min/Iron Fum/Folic AC [Dkuba-Oudsnux-Qparpjes Tablet] 1 each PO DAILY 09/29/17 [History] Celecoxib 200 mg PO DAILY 02/25/18 [History] Past Medical History HEENT History: Reports: Impaired Vision Other HEENT History: readers Cardiovascular History: Reports: Hypertension Gastrointestinal History: Reports: Chronic Constipation Genitourinary History: Reports: Other (See Below) Other Genitourinary History: bladder [employer]YR[employer]CH[employer] 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 History: Reports: Endometriosis, Musculoskeletal History: Reports: None Neurological History: Reports: Concussion, Head Trauma Psychiatric History: Reports: Anxiety Endocrine/Metabolic History: Reports: Hypothyroidism, Obesity/BMI 30+ - Infectious Disease History Infectious Disease History: Reports: Chicken Pox, Measles, Mumps, Pertussis ( Whooping Cough), Shingles - Past Surgical History Head Surgeries/Procedures: Reports: None HEENT Surgical History: Reports: LASIK, Tonsillectomy Cardiovascular Surgical History: Reports: None GI Surgical History: Reports: Cholecystectomy Other GI Surgeries/Procedures: Yvonne Fundoplication Female Surgical History: Reports: Breast Biopsy, Breast Reduction, Hysterectomy Endocrine Surgical History: Reports: None Neurological Surgical History: Reports: Other (See Below) Other Neurological Surgeries/Procedures: rods in lower back Musculoskeletal Surgical History: Reports: Other (See Below) Other Musculoskeletal Surgeries/Procedures:: 4 rods in back Dermatological Surgical History: Reports: Skin Biopsy Social & Family History - Family History Family Medical History: Noncontributory - Tobacco Use Smoking Status *Q: Never Smoker Second Hand Smoke Exposure: No - Caffeine Use Caffeine Use: Reports: Coffee - Recreational Drug Use Recreational Drug Use: No H&P Review of Systems - Review of Systems: Review Of Systems: See Below Gastrointestinal: Reports: Abdominal Pain Exam - Exam Exam: See Below - Vital Signs Vital Signs: Last Vital Signs Temp 96.2 F 02/26/18 08:00 Pulse 58 L 02/26/18 08:00 Resp 16 02/26/18 08:00 BP 142/59 H 02/26/18 08:00 Pulse Ox 92 L 02/26/18 08:00 Weight: 201 lb 3.2 oz - Exam General: Alert, Oriented, Cooperative Lungs: Clear to Auscultation Cardiovascular: Regular Rate GI/Abdominal Exam: Normal Bowel Sounds, Soft, Tender (No peritoneal signs. ) Skin: Warm, Dry, Intact Neuro Extensive - Mental Status: Alert, Oriented x3, Normal Mood/Affect, Normal Cognition, Memory Intact Psychiatric: Alert, Normal Affect, Normal Mood - Patient Data Lab Results Last 24 hrs: Laboratory Results - last 24 hr 02/25/18 02/25/18 02/25/18 Range/Units 21:33 21:33 21:33 WBC 12.3 H (4.5-11.0) K/uL RBC 4.55 (3.30-5.50) M/uL Hgb 13.1 (12.0-15.0) g/dL Hct 40.6 (36.0-48.0) % MCV 89 (80-98) fL MCH 29 (27-31) pg MCHC 32 (32-36) % Plt Count 380 (150-400) K/uL Neut % (Auto) 70 H (36-66) % Lymph % (Auto) 23 L (24-44) % Alexander % (Auto) 7 H (2-6) % Eos % (Auto) 0 L (2-4) % Baso % (Auto) 0 (0-1) % Sodium 141 (140-148) mmol/L Potassium 3.5 L (3.6-5.2) mmol/L Chloride 105 (100-108) mmol/L Carbon Dioxide 29 (21-32) mmol/L Anion Gap 10.5 (5.0-14.0) mmol/L BUN 26 H (7-18) mg/dL Creatinine 1.3 H (0.6-1.0) mg/dL Est Cr Clr Drug Dosing 38.75 mL/min Estimated GFR (MDRD) 42 L (>60) Glucose 102 (74-106) mg/dL Calcium 8.8 (8.5-10.1) mg/dL Total Bilirubin 0.3 (0.2-1.0) mg/dL AST 15 (15-37) U/L ALT 33 (12-78) U/L Alkaline Phosphatase 107 (46-116) U/L C-Reactive Protein 0.87 H (0.0-0.3) mg/dL Total Protein 7.1 (6.4-8.2) g/dL Albumin 3.5 (3.4-5.0) g/dL Globulin 3.6 H (2.3-3.5) g/dL Albumin/Globulin Ratio 1.0 L (1.2-2.2) Lipase 93 (73-393) U/L Urine Color Urine Appearance Urine pH (4.5-8.0) Ur Specific [place] (1.008-1.030) Urine Protein (NEGATIVE) mg/dL Urine Glucose (UA) (NEGATIVE) mg/dL Urine Ketones (NEGATIVE) mg/dL Urine Occult Blood (NEGATIVE) Urine Nitrite (NEGATIVE) Urine Bilirubin (NEGATIVE) Urine Urobilinogen (NORMAL) mg/dL Ur Leukocyte Esterase (NEGATIVE) Urine RBC (0-5) Urine WBC (0-5) Ur Epithelial Cells Amorphous Sediment Urine Bacteria Urine Mucus 02/25/18 02/26/18 02/26/18 Range/Units 22:14 05:47 05:47 WBC 22.1 H (4.5-11.0) K/uL RBC 4.49 (3.30-5.50) M/uL Hgb 12.8 (12.0-15.0) g/dL Hct 40.2 (36.0-48.0) % MCV 90 (80-98) fL MCH 29 (27-31) pg MCHC 32 (32-36) % Plt Count 345 (150-400) K/uL Neut % (Auto) (36-66) % Lymph % (Auto) (24-44) % Alexander % (Auto) (2-6) % Eos % (Auto) (2-4) % Baso % (Auto) (0-1) % Sodium 141 (140-148) mmol/L Potassium 3.7 (3.6-5.2) mmol/L Chloride 105 (100-108) mmol/L Carbon Dioxide 23 (21-32) mmol/L Anion Gap 12.8 (5.0-14.0) mmol/L BUN 24 H (7-18) mg/dL Creatinine 1.2 H (0.6-1.0) mg/dL Est Cr Clr Drug Dosing 41.97 mL/min Estimated GFR (MDRD) 46 L (>60) Glucose 157 H (74-106) mg/dL Calcium 8.6 (8.5-10.1) mg/dL Total Bilirubin (0.2-1.0) mg/dL AST (15-37) U/L ALT (12-78) U/L Alkaline Phosphatase (46-116) U/L C-Reactive Protein (0.0-0.3) mg/dL Total Protein (6.4-8.2) g/dL Albumin (3.4-5.0) g/dL Globulin (2.3-3.5) g/dL Albumin/Globulin Ratio (1.2-2.2) Lipase (73-393) U/L Urine Color Yellow Urine Appearance Clear Urine pH 5.0 (4.5-8.0) Ur Specific [place] 1.020 (1.008-1.030) Urine Protein Negative (NEGATIVE) mg/dL Urine Glucose (UA) Normal (NEGATIVE) mg/dL Urine Ketones Negative (NEGATIVE) mg/dL Urine Occult Blood Negative (NEGATIVE) Urine Nitrite Negative (NEGATIVE) Urine Bilirubin Negative (NEGATIVE) Urine Urobilinogen Normal (NORMAL) mg/dL Ur Leukocyte Esterase Negative (NEGATIVE) Urine RBC 0-5 (0-5) Urine WBC 0-5 (0-5) Ur Epithelial Cells Moderate Amorphous Sediment Few Urine Bacteria Few Urine Mucus Few Result Diagrams: 02/26/18 05:47 02/26/18 05:47 Consult PN Assessment/Plan Procedures: Procedures CARPAL TUNNEL SURGERY (09/30/17) COMP SCREEN MAMMOGRAM ADD-ON (12/05/15) COMPUTER DX MAMMOGRAM ADD-ON (08/22/13) FUSION OF BIG TOE JOINT (01/28/15) OFFICE/OUTPATIENT VISIT EST (08/30/13) REPAIR OF [place] (01/28/15) REVISION OF TOE (01/28/15) SCR MAMMO BI INCL CAD (12/16/17) US EXAM BREAST(S) (08/22/13) X-RAY EXAM OF FOOT (01/28/15) (1) Acute diverticulitis of intestine SNOMED Code(s): 908494255 Code(s): K57.92 - DVTRCLI OF INTEST, PART UNSP, W/O PERF OR ABSCESS W/O BLEED Current Visit: Yes (2) Perforation bowel SNOMED Code(s): 53702965 Code(s): K63.1 - PERFORATION OF INTESTINE (NONTRAUMATIC) Current Visit: Yes Problem List Initiated/Reviewed/Updated: Yes My Orders Last 24 Hours: Diverticulitis with contained perforation. Plan: Bowel rest and IV antibiotics. Colonoscopy in about six weeks.
[2018-02-26] MEDS: metroNIDAZOLE/Normal Saline 500 MG in Premix Bag 1 BAG IV SCH ×2 (12:00→20:06)
[2018-02-26] MEDS: Enoxaparin 40 MG/0.4 ML Syringe SUBCUT SCH (12:16)
[2018-02-26] MEDS: Ciprofloxacin in D5W 400 MG in Premix Bag 1 BAG IV SCH ×2 (14:29)
[2018-02-27] MEDS ORDERED: LORazepam 2 MG/ML SDV IVPUSH PRN (01:04)
[2018-02-27] MEDS ORDERED: LORazepam 2 MG/ML SDV ONE (01:13)
--- NOTE | 2018-02-27 01:13 | PCM.SN ---
- Free Text/Narrative Note: time: 01:11 call from 2 [facility]; requesting medication for anxiety O: vital signs stable, 36.4-75-16 B\P 153\59 O2 sats 93% A: anxiety P: Ativan 1-2 mg IV every 4 hours prn anxiety. continue present plan of care.
[2018-02-27] MEDS: Ciprofloxacin in D5W 400 MG in Premix Bag 1 BAG IV SCH ×4 (01:45→13:39)
[2018-02-27] MEDS: metroNIDAZOLE/Normal Saline 500 MG in Premix Bag 1 BAG IV SCH ×4 (02:51→18:43)
[2018-02-27] MEDS: Sodium Chloride 0.9% 1,000 ML IV SCH (05:58)
[2018-02-27] MEDS ORDERED: Pantoprazole 40 MG Vial ONE (06:19)
[2018-02-27] MEDS: Pantoprazole 40 MG Vial IVPUSH SCH (06:28)
[2018-02-27] MEDS ORDERED: Magnesium Oxide 400 MG Tab PO SCH (09:00)
[2018-02-27] MEDS ORDERED: Magnesium Sulfate/Water 2 GM in Premix Bag 1 BAG IV ONE (09:00)
[2018-02-27] MEDS: Enoxaparin 40 MG/0.4 ML Syringe SUBCUT SCH (10:17)
[2018-02-27] MEDS ORDERED: Iopamidol 612 MG/ML 150 ML Bottle IV PRN (10:25)
[2018-02-27] MEDS: Ondansetron 4 MG/2 ML SDV IV PRN (11:32)
[2018-02-27] MEDS ORDERED: Naloxone 0.4 MG/ML SDV IVPUSH PRN (11:39)
--- NOTE | 2018-02-27 11:43 | PCM.PN ---
- General Info Date of Service: 02/27/18 Subjective Update: Ms. Zapien has unfortunately had increase in abdominal pain since yesterday, despite ongoing antibiotic therapy. She feels that she has more pain with movement and even at rest than she did yesterday. She is been afebrile with stable vital signs, white blood cell count has improved over the past 24 hours. Functional Status: Reports: Urinating - Review of Systems General: Reports: Weakness. Denies: Fever, Chills Pulmonary: Reports: No Symptoms Cardiovascular: Reports: No Symptoms Gastrointestinal: Reports: Abdominal Pain. Denies: Constipation, Diarrhea, Difficulty Swallowing, Nausea, Vomiting - Patient Data Vitals - Most Recent: Last Vital Signs Temp 97.8 F 02/27/18 08:00 Pulse 92 02/27/18 08:00 Resp 20 02/27/18 08:00 BP 155/74 H 02/27/18 08:00 Pulse Ox 94 L 02/27/18 04:00 Weight - Most Recent: 201 lb 3.2 oz I&O - Last 24 Hours: Intake & Output 02/26/18 02/27/18 02/27/18 22:59 06:59 14:59 Intake Total 1535 Balance 1535 Lab Results Last 24 Hours: Laboratory Results - last 24 hr 02/27/18 02/27/18 Range/Units 05:52 05:52 WBC 13.6 H (4.5-11.0) K/uL RBC 3.67 (3.30-5.50) M/uL Hgb 10.5 L D (12.0-15.0) g/dL Hct 33.3 L (36.0-48.0) % MCV 91 (80-98) fL MCH 29 (27-31) pg MCHC 32 (32-36) % Plt Count 266 (150-400) K/uL Neut % (Auto) 83 H (36-66) % Lymph % (Auto) 11 L (24-44) % [place] % (Auto) 5 (2-6) % Eos % (Auto) 0 L (2-4) % Baso % (Auto) 0 (0-1) % Sodium 142 (140-148) mmol/L Potassium 3.6 (3.6-5.2) mmol/L Chloride 108 (100-108) mmol/L Carbon Dioxide 27 (21-32) mmol/L Anion Gap 7.0 (5.0-14.0) mmol/L BUN 15 (7-18) mg/dL Creatinine 1.0 (0.6-1.0) mg/dL Est Cr Clr Drug Dosing 50.37 mL/min Estimated GFR (MDRD) 56 L (>60) Glucose 105 (74-106) mg/dL Calcium 8.1 L (8.5-10.1) mg/dL Magnesium 1.7 L (1.8-2.4) mg/dL Total Bilirubin 0.7 D (0.2-1.0) mg/dL AST 40 H D (15-37) U/L ALT 49 (12-78) U/L Alkaline Phosphatase 77 (46-116) U/L Total Protein 5.5 L (6.4-8.2) g/dL Albumin 2.5 L (3.4-5.0) g/dL Globulin 3.0 (2.3-3.5) g/dL Albumin/Globulin Ratio 0.8 L (1.2-2.2) Med Orders - Current: Current Medications Enoxaparin Sodium (Lovenox) 40 mg SUBCUT Q24H COUNTS INCLUDE 234 BEDS AT THE [facility] Last Admin: 02/27/18 10:17 Dose: 40 mg Sodium Chloride (Normal Saline) 1,000 mls @ 125 mls/hr IV ASDIRECTED COUNTS INCLUDE 234 BEDS AT THE [facility] Last Admin: 02/27/18 05:58 Dose: 125 mls/hr Ciprofloxacin/Dextrose 400 mg/ (Premix) 200 mls @ 200 mls/hr IV Q12H COUNTS INCLUDE 234 BEDS AT THE [facility] Last Admin: 02/27/18 01:45 Dose: 200 mls/hr Metronidazole 500 mg/ Premix 100 mls @ 100 mls/hr IV Q8H COUNTS INCLUDE 234 BEDS AT THE [facility] Last Admin: 02/27/18 08:48 Dose: 100 mls/hr Sodium Chloride (Normal Saline) 81 mls @ 3.5 mls/sec IV ASDIRECTED COUNTS INCLUDE 234 BEDS AT THE [facility] Stop: 02/27/18 23:00 Iopamidol (Isovue-300 (61%)) 136 ml IV . DIRECTED PRN PRN Reason: RADIOLOGY EXAM Stop: 02/28/18 10:26 Lorazepam (Ativan) 2 mg IVPUSH Q4H PRN PRN Reason: Anxiety Last Admin: 02/27/18 01:16 Dose: 1 mg Magnesium Oxide (Magnesium Oxide) 400 mg PO BID COUNTS INCLUDE 234 BEDS AT THE [facility] Last Admin: 02/27/18 09:01 Dose: 400 mg Naloxone HCl (Narcan) 0.1 mg IVPUSH Q2M PRN PRN Reason: Respiratory Distress Ondansetron HCl (Zofran) 4 mg IV Q4H PRN PRN Reason: Nausea/Vomiting Last Admin: 02/27/18 11:32 Dose: 4 mg Pantoprazole Sodium (Protonix Iv) 40 mg IVPUSH Q24H COUNTS INCLUDE 234 BEDS AT THE [facility] Last Admin: 02/27/18 06:28 Dose: 40 mg Sodium Chloride (Saline Flush) 10 ml FLUSH ASDIRECTED PRN PRN Reason: Keep Vein Open Last Admin: 02/25/18 22:39 Dose: 10 ml Discontinued Medications Diphenhydramine HCl (Benadryl) 50 mg IVPUSH ONETIME ONE Stop: 02/25/18 21:43 Last Admin: 02/25/18 21:44 Dose: 50 mg Diphenhydramine HCl (Benadryl) Confirm Administered Dose 50 mg .ROUTE .STK-MED ONE Stop: 02/25/18 21:44 Last Admin: 02/25/18 21:49 Dose: Not Given Fentanyl Citrate (Fentanyl In Ns 20 Mcg/Ml 30 Ml Bakery Team Member) 0 mcg IV ASDIRECTED PRN; Protocol PRN Reason: Pain Last Admin: 02/26/18 12:51 Dose: 600 mcg Hydromorphone HCl (Dilaudid) 0.5 mg IVPUSH ONETIME ONE Stop: 02/25/18 21:14 Last Admin: 02/25/18 21:33 Dose: 0.5 mg Sodium Chloride (Normal Saline) 1,000 mls @ 999 mls/hr IV ASDIRECTED COUNTS INCLUDE 234 BEDS AT THE [facility] Last Admin: 02/25/18 21:28 Dose: 999 mls/hr Sodium Chloride (Normal Saline) 80 mls @ 3 mls/sec IV ASDIRECTED COUNTS INCLUDE 234 BEDS AT THE [facility] Last Admin: 02/25/18 22:39 Dose: 3 mls/sec Ciprofloxacin/Dextrose 400 mg/ (Premix) 200 mls @ 200 mls/hr IV ONETIME ONE Stop: 02/26/18 01:18 Last Admin: 02/26/18 02:19 Dose: 200 mls/hr Metronidazole 500 mg/ Premix 100 mls @ 100 mls/hr IV ONETIME ONE Stop: 02/26/18 01:18 Last Admin: 02/26/18 00:54 Dose: 100 mls/hr Sodium Chloride (Normal Saline) 1,000 mls @ 125 mls/hr IV ASDIRECTED COUNTS INCLUDE 234 BEDS AT THE [facility] Last Admin: 02/26/18 08:11 Dose: 125 mls/hr Ciprofloxacin/Dextrose 400 mg/ (Premix) 200 mls @ 200 mls/hr IV Q12H COUNTS INCLUDE 234 BEDS AT THE [facility] Last Admin: 02/26/18 06:13 Dose: Not Given Metronidazole 500 mg/ Premix 100 mls @ 100 mls/hr IV Q8H COUNTS INCLUDE 234 BEDS AT THE [facility] Last Admin: 02/26/18 06:14 Dose: Not Given Magnesium Sulfate 2 gm/ Premix 50 mls @ 25 mls/hr IV ONETIME ONE Stop: 02/27/18 10:59 Last Admin: 02/27/18 10:26 Dose: 25 mls/hr Iopamidol (Isovue-300 (61%)) 132 ml IV . DIRECTED COUNTS INCLUDE 234 BEDS AT THE [facility] Last Admin: 02/25/18 22:39 Dose: 132 ml Lorazepam (Ativan) Confirm Administered Dose 2 mg .ROUTE .STK-MED ONE Stop: 02/27/18 01:14 Last Admin: 02/27/18 02:18 Dose: Not Given Methylprednisolone Sodium Succinate (Solu-Medrol) 125 mg IVPUSH ONETIME ONE Stop: 02/25/18 21:43 Last Admin: 02/25/18 21:45 Dose: 125 mg Methylprednisolone Sodium Succinate (Solu-Medrol) Confirm Administered Dose 125 mg .ROUTE .STK-MED ONE Stop: 02/25/18 21:44 Last Admin: 02/25/18 21:49 Dose: Not Given Morphine Sulfate (Morphine) 1 mg IVPUSH Q1H PRN PRN Reason: Abdominal Pain Last Admin: 02/26/18 06:17 Dose: 1 mg Morphine Sulfate (Morphine) Confirm Administered Dose 2 mg .ROUTE .STK-MED ONE Stop: 02/26/18 06:16 Last Admin: 02/26/18 06:35 Dose: Not Given Ondansetron HCl (Zofran) 4 mg IVPUSH ONETIME ONE Stop: 02/25/18 21:14 Last Admin: 02/25/18 21:30 Dose: 4 mg Pantoprazole Sodium (Protonix Iv) Confirm Administered Dose 40 mg .ROUTE .STK -MED ONE Stop: 02/27/18 06:20 Last Admin: 02/27/18 06:28 Dose: Not Given - Exam General: Alert, Oriented, Cooperative, Moderate Distress Lungs: Clear to Auscultation, Normal Respiratory Effort Cardiovascular: Regular Rate, Regular Rhythm, No Murmurs GI/Abdominal Exam: Soft, No Organomegaly, Distended, Guarding, Rebound, Tender. No: Rigid Extremities: Non-Tender, No Pedal Edema Skin: Warm, Dry, Intact - Problem List Review Problem List Initiated/Reviewed/Updated: Yes - My Orders Last 24 Hours: My Active Orders 02/26/18 11:00 Enoxaparin [Lovenox] 40 mg SUBCUT Q24H 02/27/18 09:00 Magnesium Oxide 400 mg PO BID 02/27/18 10:09 Abdomen Pelvis w Cont [CT] Stat 02/27/18 11:39 Naloxone [Narcan] 0.4 mg IVPUSH Q2M PRN fentaNYL/Normal Saline [fentaNYL in NS 20 MCG/ML 30 ML CIRCULAR KNITTER] See Protocol IV ASDIRECTED PRN 02/28/18 05:00 BASIC METABOLIC PANEL,BMP [CHEM] Timed CBC WITH AUTO DIFF [HEME] Timed MAGNESIUM [CHEM] Timed - Plan Plan:: ASSESSMENT AND PLAN COMPLICATED SIGMOID DIVERTICULITIS-evidence of microperforation noted on CT scan , she is experienced increased pain over the past 24 hours despite antibiotic therapy. Evaluated by Dr. Arroyo in addition to myself this morning we'll plan to proceed with further evaluation. -Fentanyl CIRCULAR KNITTER for pain control, increased doses because of increased pain -Repeat CT scan of abdomen with IV contrast this morning -Continue current antibiotic therapy with metronidazole and ciprofloxacin -IV fluids for hydration -Surgical follow-up per Dr. Arroyo MAINTENANCE ISSUES -DVT prophylaxis; hold Lovenox, SCUDs -GI prophylaxis; not indicated -Ruiz catheter; not indicated -Nutrition; nothing by mouth with ice chips -Nicotine dependence; not required CODE STATUS-FULL CODE ADMISSION STATUS-patient will be admitted to inpatient status, expect at least a 2 night hospital stay for evaluation and management of problems as outlined above. At the time of this admission I do not reasonably expected evaluation and management of this problem will require more than a 96 hour hospital stay. DISPOSITION-anticipate discharge to home after the hospital stay. PRIMARY CARE PROVIDER-Dr. Noel
[2018-02-27] MEDS ORDERED: Rocuronium 50 MG/5 ML Vial ONE (14:09)
[2018-02-27] MEDS ORDERED: Propofol 200 MG/20 ML SDV ONE (14:09)
[2018-02-27] MEDS ORDERED: Glycopyrrolate 0.2 MG/ML 5 ML MDV ONE (14:09)
[2018-02-27] MEDS ORDERED: Dexamethasone 4 MG/ML SDV ONE (14:09)
[2018-02-27] MEDS ORDERED: Ondansetron 4 MG/2 ML SDV ONE (14:09)
[2018-02-27] MEDS ORDERED: fentaNYL 250 MCG/5 ML SDV ONE ×2 (14:09→14:53)
[2018-02-27] MEDS ORDERED: Neostigmine Methylsulfate 1 MG/ML 5 ML Syringe ONE (14:09)
--- NOTE | 2018-02-27 14:26 | PCM.SN ---
- Free Text/Narrative Note: Ms. Zapien had reported increased abdominal pain over the last [address] scan of the abdomen and pelvis was repeated and unfortunately shows free air consistent with worsening perforation. Dr. Arroyo is been in to see the patient following the CT scan and current plan is to proceed with exploratory laparotomy this afternoon.
[2018-02-27] MEDS ORDERED: Lactated Ringers 1,000 ML ONE (15:21)
[2018-02-27] MEDS: D5 1/2 NS w/ 20 mEq/L KCl 1,000 ML IV SCH (18:00)
[2018-02-28] MEDS: D5 1/2 NS w/ 20 mEq/L KCl 1,000 ML IV SCH ×2 (00:15→09:30)
[2018-02-28] MEDS: metroNIDAZOLE/Normal Saline 500 MG in Premix Bag 1 BAG IV SCH ×3 (00:49→16:39)
[2018-02-28] MEDS: fentaNYL/Normal Saline 600 MCG/30 ML PCA Vial IV PRN (01:40)
[2018-02-28] MEDS: Ciprofloxacin in D5W 400 MG in Premix Bag 1 BAG IV SCH ×4 (01:45→13:43)
[2018-02-28] MEDS: Pantoprazole 40 MG Vial IVPUSH SCH (05:54)
--- NOTE | 2018-02-28 07:50 | OR ---
DATE OF PROCEDURE: 02/27/2018 PREOPERATIVE DIAGNOSIS: Perforated sigmoid diverticulitis. POSTOPERATIVE DIAGNOSES: Perforated sigmoid diverticulitis, Hinchey III. Divided left ureter. PROCEDURE: Sigmoid resection, Olivia pouch, left colostomy, reimplantation of ureter into bladder. SURGEON: Nitin Arroyo MD. ANESTHESIA: General endotracheal. INDICATION: This 62-year-old white female was admitted 2 nights ago complaining of abdominal pain. She had a CAT scan which showed a contained perforation from sigmoid diverticulitis. She was admitted, given IV fluids and IV antibiotics. Late yesterday and over the evening, she complained of more abdominal pain. Today, she was afebrile and her white count was falling; however, she seemed to be more tender. A CAT scan was obtained which showed free perforation into the peritoneal cavity. She was taken to the operating room for exploratory laparotomy with probable colostomy. I counseled her for surgery including risks and alternatives, and she gave her informed consent to proceed. DESCRIPTION OF PROCEDURE: After adequate general endotracheal anesthesia was obtained, the patient was placed in low lithotomy. A Ruiz catheter was placed. Her abdomen was prepped and draped in the usual sterile fashion. The leg compression stockings were in place and used during the entire procedure. Time-out was held. A lower midline incision was made from the umbilicus to the pubis. This was carried deep using Bovie cautery to the fascia. The fascia was incised and the underlying peritoneum was elevated and incised. The peritoneum and fascia were extended at the length of the skin incision using Bovie cautery while protecting underlying structures. We encountered purulent material. This was sent for Gram stain and culture. We aspirated this free. The perforation was readily identified in the sigmoid colon. The sigmoid colon was mobilized up by taking down the white line of Toldt. There was a great deal of inflammation present. She has had prior abdominal surgeries including a cholecystectomy, tubal ligation, and hysterectomy. The sigmoid colon was selected for a suitable point to divide it proximally. It was divided here with the BARRINGTON. The mesocolon was taken down with the BARRINGTON using white loads. We did this right on the colon as there was no obvious palpable mass in the colon and no suggestion of colon cancer. Before dividing the colon distally and when searching for the ureter, that it was divided. We then divided the colon right down into the rectum. A 0 Prolene suture was then used to tag the end of the staple line, so it would be easier to find when reanastomosing her colon at a later date. The ureter was then reimplanted in the bladder. This was done by placing double-J ureteral stent up into the kidney. We opened the bladder by tunneling it and then placed the double-J down into the bladder and approximated the ureter with 3-0 chromic to the bladder with interrupted stitches. We will cover this over with the bladder flap. We then did the end left colostomy. A ute mountain of skin was excised laterally to the left over the rectus muscle. The underlying fat was removed. A cruciate incision was made in the fascia. The rectus muscle and the muscle fibers were divided and the underlying peritoneum was opened. We then brought the end left colon up through the anterior abdominal wall at this point and tacked the colon to the posterior rectus fascia with 3-0 silk suture. We copiously irrigated the abdomen with saline and suctioned it dry. A Victor Hugo- Curtis drain was obtained and brought through a separate stab wound to the right. This was placed down in the pelvis. The bladder flap was closed over the ureter where it enters the bladder with 3-0 Vicryl. The fascia was then closed with a running stitch of #2 Vicryl. The incision was irrigated again and dried. We then matured the colostomy. The staple line was excised. Four sides of the end colon were approximated to the dermis with interrupted stitches of 3 -0 silk. Intervening spaces were approximated with 3-0 chromic. All looked well. The Victor Hugo- Curtis drain was anchored with 2-0 silk suture. An ostomy bag was placed over the ostomy. The incision had been covered with a blue towel while maturing the ostomy. The blue towel was removed and a moist Kerlix was placed in the incision with a sterile dressing applied with a plan for delayed primary closure in a few days. The anesthesia was then reversed. She was extubated and brought to the recovery room in fair condition. Nitin Arroyo MD /[id number] JUN
[2018-02-28] MEDS ORDERED: Benzocaine/Cetylpyridinium/Menthol Lozenge MUCMEM PRN (09:17)
--- NOTE | 2018-02-28 09:18 | PCM.PN ---
- General Info Date of Service: 02/28/18 Functional Status: Reports: Pain Controlled - Review of Systems General: Denies: Fever Gastrointestinal: Reports: Abdominal Pain Systems Review Comment:: There were no acute events overnight. Moderate abdominal pain but overall this has been controlled. No fevers. No nausea. Small amount of NG drainage. Throat is dry and sore. Minimal bloody output into colostomy. She does not feel short of breath. - Patient Data Vitals - Most Recent: Last Vital Signs Temp 35.7 C 02/28/18 08:00 Pulse 75 02/28/18 08:00 Resp 14 02/28/18 08:00 BP 168/76 H 02/28/18 08:00 Pulse Ox 94 L 02/28/18 08:00 Weight - Most Recent: 91.263 kg I&O - Last 24 Hours: Intake & Output 02/27/18 02/28/18 02/28/18 22:59 06:59 14:59 Intake Total 2587 Output Total 700 1255 650 Balance -700 1332 -650 Lab Results Last 24 Hours: Laboratory Results - last 24 hr 02/27/18 02/27/18 02/28/18 Range/Units 13:55 17:04 04:40 WBC 20.1 H 13.6 H (4.5-11.0) K/uL RBC 4.18 3.72 (3.30-5.50) M/uL Hgb 11.8 L 10.6 L (12.0-15.0) g/dL Hct 37.7 33.7 L (36.0-48.0) % MCV 90 91 (80-98) fL MCH 28 29 (27-31) pg MCHC 31 L 32 (32-36) % Plt Count 319 279 (150-400) K/uL Neut % (Auto) 89 H (36-66) % Lymph % (Auto) 7 L (24-44) % [place] % (Auto) 5 (2-6) % Eos % (Auto) 0 L (2-4) % Baso % (Auto) 0 (0-1) % Sodium (140-148) mmol/L Potassium (3.6-5.2) mmol/L Chloride (100-108) mmol/L Carbon Dioxide (21-32) mmol/L Anion Gap (5.0-14.0) mmol/L BUN (7-18) mg/dL Creatinine (0.6-1.0) mg/dL Est Cr Clr Drug Dosing mL/min Estimated GFR (MDRD) (>60) Glucose (74-106) mg/dL Calcium (8.5-10.1) mg/dL Magnesium (1.8-2.4) mg/dL Blood Type O POSITIVE Gel Antibody Screen Negative Crossmatch See Detail 02/28/18 Range/Units 04:40 WBC (4.5-11.0) K/uL RBC (3.30-5.50) M/uL Hgb (12.0-15.0) g/dL Hct (36.0-48.0) % MCV (80-98) fL MCH (27-31) pg MCHC (32-36) % Plt Count (150-400) K/uL Neut % (Auto) (36-66) % Lymph % (Auto) (24-44) % [place] % (Auto) (2-6) % Eos % (Auto) (2-4) % Baso % (Auto) (0-1) % Sodium 137 L (140-148) mmol/L Potassium 4.0 (3.6-5.2) mmol/L Chloride 104 (100-108) mmol/L Carbon Dioxide 24 (21-32) mmol/L Anion Gap 13.0 (5.0-14.0) mmol/L BUN 10 (7-18) mg/dL Creatinine 1.0 (0.6-1.0) mg/dL Est Cr Clr Drug Dosing 50.37 mL/min Estimated GFR (MDRD) 56 L (>60) Glucose 174 H (74-106) mg/dL Calcium 7.6 L (8.5-10.1) mg/dL Magnesium 1.8 (1.8-2.4) mg/dL Blood Type Gel Antibody Screen Crossmatch Shun Results Last 24 Hours: Microbiology 02/27/18 15:49 Gram Stain - Final Gallbladder Med Orders - Current: Current Medications Fentanyl Citrate (Fentanyl In Ns 20 Mcg/Ml 30 Ml Claims Collector) 0 mcg IV ASDIRECTED PRN; Protocol PRN Reason: Pain Last Admin: 02/28/18 01:40 Dose: 600 mcg Ciprofloxacin/Dextrose 400 mg/ (Premix) 200 mls @ 200 mls/hr IV Q12H [facility] Last Admin: 02/28/18 01:45 Dose: 200 mls/hr Metronidazole 500 mg/ Premix 100 mls @ 100 mls/hr IV Q8H [facility] Last Admin: 02/28/18 08:13 Dose: 100 mls/hr Naloxone HCl (Narcan) 0.4 mg IVPUSH Q2M PRN PRN Reason: Respiratory Distress Ondansetron HCl (Zofran) 4 mg IV Q4H PRN PRN Reason: Nausea/Vomiting Last Admin: 02/27/18 11:32 Dose: 4 mg Pantoprazole Sodium (Protonix Iv) 40 mg IVPUSH Q24H [facility] Last Admin: 02/28/18 05:54 Dose: 40 mg Sodium Chloride (Saline Flush) 10 ml FLUSH ASDIRECTED PRN PRN Reason: Keep Vein Open Last Admin: 02/25/18 22:39 Dose: 10 ml Discontinued Medications Dexamethasone (Dexamethasone) Confirm Administered Dose 4 mg .ROUTE .STK-MED ONE Stop: 02/27/18 14:10 Diphenhydramine HCl (Benadryl) 50 mg IVPUSH ONETIME ONE Stop: 02/25/18 21:43 Last Admin: 02/25/18 21:44 Dose: 50 mg Diphenhydramine HCl (Benadryl) Confirm Administered Dose 50 mg .ROUTE .STK-MED ONE Stop: 02/25/18 21:44 Last Admin: 02/25/18 21:49 Dose: Not Given Enoxaparin Sodium (Lovenox) 40 mg SUBCUT Q24H [facility] Last Admin: 02/27/18 10:17 Dose: 40 mg Fentanyl (Sublimaze) Confirm Administered Dose 250 mcg .ROUTE .STK-MED ONE Stop: 02/27/18 14:10 Fentanyl (Sublimaze) Confirm Administered Dose 250 mcg .ROUTE .STK-MED ONE Stop: 02/27/18 14:54 Fentanyl Citrate (Fentanyl In Ns 20 Mcg/Ml 30 Ml Claims Collector) 0 mcg IV ASDIRECTED PRN; Protocol PRN Reason: Pain Last Admin: 02/26/18 12:51 Dose: 600 mcg Glycopyrrolate (Robinul) Confirm Administered Dose 1 mg .ROUTE .STK-MED ONE Stop: 02/27/18 14:10 Hydromorphone HCl (Dilaudid) 0.5 mg IVPUSH ONETIME ONE Stop: 02/25/18 21:14 Last Admin: 02/25/18 21:33 Dose: 0.5 mg Sodium Chloride (Normal Saline) 1,000 mls @ 999 mls/hr IV ASDIRECTED [facility] Last Admin: 02/25/18 21:28 Dose: 999 mls/hr Sodium Chloride (Normal Saline) 80 mls @ 3 mls/sec IV ASDIRECTED [facility] Last Admin: 02/25/18 22:39 Dose: 3 mls/sec Ciprofloxacin/Dextrose 400 mg/ (Premix) 200 mls @ 200 mls/hr IV ONETIME ONE Stop: 02/26/18 01:18 Last Admin: 02/26/18 02:19 Dose: 200 mls/hr Metronidazole 500 mg/ Premix 100 mls @ 100 mls/hr IV ONETIME ONE Stop: 02/26/18 01:18 Last Admin: 02/26/18 00:54 Dose: 100 mls/hr Sodium Chloride (Normal Saline) 1,000 mls @ 125 mls/hr IV ASDIRECTED [facility] Last Admin: 02/26/18 08:11 Dose: 125 mls/hr Sodium Chloride (Normal Saline) 1,000 mls @ 125 mls/hr IV ASDIRECTED [facility] Last Admin: 02/27/18 05:58 Dose: 125 mls/hr Ciprofloxacin/Dextrose 400 mg/ (Premix) 200 mls @ 200 mls/hr IV Q12H [facility] Last Admin: 02/26/18 06:13 Dose: Not Given Metronidazole 500 mg/ Premix 100 mls @ 100 mls/hr IV Q8H [facility] Last Admin: 02/26/18 06:14 Dose: Not Given Magnesium Sulfate 2 gm/ Premix 50 mls @ 25 mls/hr IV ONETIME ONE Stop: 02/27/18 10:59 Last Admin: 02/27/18 10:26 Dose: 25 mls/hr Sodium Chloride (Normal Saline) 81 mls @ 3.5 mls/sec IV ASDIRECTED [facility] Stop: 02/27/18 23:00 Last Admin: 02/27/18 12:09 Dose: 3.5 mls/sec Lactated Ringer's (Ringers, Lactated) Confirm Administered Dose 1,000 mls @ as directed .ROUTE .STK-MED ONE Stop: 02/27/18 15:22 Potassium Chloride/Dextrose/Sod Cl (D5 1/2 Ns W/ 20 Meq/L Kcl) 1,000 mls @ 150 mls/hr IV ASDIRECTED [facility] Last Admin: 02/28/18 00:15 Dose: 150 mls/hr Iopamidol (Isovue-300 (61%)) 132 ml IV . DIRECTED [facility] Last Admin: 02/25/18 22:39 Dose: 132 ml Iopamidol (Isovue-300 (61%)) 136 ml IV . DIRECTED PRN PRN Reason: RADIOLOGY EXAM Stop: 02/28/18 10:26 Last Admin: 02/27/18 12:08 Dose: 136 ml Lorazepam (Ativan) 2 mg IVPUSH Q4H PRN PRN Reason: Anxiety Last Admin: 02/27/18 01:16 Dose: 1 mg Lorazepam (Ativan) Confirm Administered Dose 2 mg .ROUTE .STK-MED ONE Stop: 02/27/18 01:14 Last Admin: 02/27/18 02:18 Dose: Not Given Magnesium Oxide (Magnesium Oxide) 400 mg PO BID [facility] Last Admin: 02/27/18 09:01 Dose: 400 mg Methylprednisolone Sodium Succinate (Solu-Medrol) 125 mg IVPUSH ONETIME ONE Stop: 02/25/18 21:43 Last Admin: 02/25/18 21:45 Dose: 125 mg Methylprednisolone Sodium Succinate (Solu-Medrol) Confirm Administered Dose 125 mg .ROUTE .STK-MED ONE Stop: 02/25/18 21:44 Last Admin: 02/25/18 21:49 Dose: Not Given Morphine Sulfate (Morphine) 1 mg IVPUSH Q1H PRN PRN Reason: Abdominal Pain Last Admin: 02/26/18 06:17 Dose: 1 mg Morphine Sulfate (Morphine) Confirm Administered Dose 2 mg .ROUTE .STK-MED ONE Stop: 02/26/18 06:16 Last Admin: 02/26/18 06:35 Dose: Not Given Naloxone HCl (Narcan) 0.1 mg IVPUSH Q2M PRN PRN Reason: Respiratory Distress Neostigmine Methylsulfate (Neostigmine) Confirm Administered Dose 5 mg .ROUTE .STK-MED ONE Stop: 02/27/18 14:10 Ondansetron HCl (Zofran) 4 mg IVPUSH ONETIME ONE Stop: 02/25/18 21:14 Last Admin: 02/25/18 21:30 Dose: 4 mg Ondansetron HCl (Zofran) Confirm Administered Dose 4 mg .ROUTE .STK-MED ONE Stop: 02/27/18 14:10 Pantoprazole Sodium (Protonix Iv) Confirm Administered Dose 40 mg .ROUTE .STK -MED ONE Stop: 02/27/18 06:20 Last Admin: 02/27/18 06:28 Dose: Not Given Propofol (Diprivan 20 Ml) Confirm Administered Dose 200 mg .ROUTE .STK-MED ONE Stop: 02/27/18 14:10 Rocuronium Victor (Zemuron) Confirm Administered Dose 50 mg .ROUTE .STK-MED ONE Stop: 02/27/18 14:10 - Exam Quality Assessment: Supplemental Oxygen General: Alert, Oriented, Cooperative, No Acute Distress Neck: Supple Lungs: Clear to Auscultation, Normal Respiratory Effort Cardiovascular: Regular Rate, Regular Rhythm GI/Abdominal Exam: Soft, No Distention, Abnormal Bowel Sounds (hypoactive), Other (colostomy LLQ with small amount of blood inside, no gas or stool ) Extremities: No Pedal Edema Psy/Mental Status: Alert, Normal Affect - Problem List Review Problem List Initiated/Reviewed/Updated: Yes - My Orders Last 24 Hours: My Active Orders 02/28/18 09:15 D5 1/2 NS w/ 20 mEq/L KCl 1,000 ml IV ASDIRECTED 02/28/18 09:17 Benzocaine/Cetylpyrd/Menthol [Cepacol Sore Throat] 1 lozenge MUCMEM Q1H PRN LORazepam [Ativan] 1 mg IVPUSH Q4H PRN - Plan Plan:: ASSESSMENT AND PLAN COMPLICATED SIGMOID DIVERTICULITIS - repeat CT scan yesterday showed free air in the abdomen and she had an exploratory laparotomy with left-sided colon resection and colostomy formation. Pain has been well-controlled overnight. Vital signs have been stable. -Fentanyl CURING OVEN TENDER for pain control -Continue current antibiotic therapy with metronidazole and ciprofloxacin -Continue IV fluids with reduced rate -Follow-up culture results -Surgical follow-up per Dr. Arroyo MAINTENANCE ISSUES -DVT prophylaxis; SCUDs -GI prophylaxis; PPI -Ruiz catheter; not indicated -Nutrition; nothing by mouth DISPOSITION - anticipate discharge to home after the hospital stay. Dion Hester M.D.
--- NOTE | 2018-02-28 13:50 | PCM.SURGPN ---
- General Info Date of Service: 02/28/18 Date of Surgery/Procedure: 02/27/18 POD#: 1 Post-Op Diagnosis: Perforated sigmoid diverticulitis, Hinchey III. Admission Diagnosis/Problem: Diverticulitis of colon with perforation Functional Status: Reports: Pain Controlled, Ambulating, Urinating (Ruiz. ) - Review of Systems General: Reports: No Symptoms HEENT: Reports: No Symptoms Pulmonary: Reports: No Symptoms Cardiovascular: Reports: No Symptoms Gastrointestinal: Reports: Other (Pain controlled. Essentially no ostomy output. ) Genitourinary: Reports: Other (Ruiz) Musculoskeletal: Reports: Back Pain (Same pain she always has. She has had back surgery and has been sleeping on her back. ) Skin: Reports: No Symptoms Neurological: Reports: No Symptoms Psychiatric: Reports: No Symptoms - Patient Data Vitals - Most Recent: Last Vital Signs Temp 96.8 F 02/28/18 12:00 Pulse 75 02/28/18 08:00 Resp 19 02/28/18 12:00 BP 137/71 02/28/18 12:00 Pulse Ox 95 02/28/18 12:00 Weight - Most Recent: 201 lb I&O - Last 24 Hours: Intake & Output 02/27/18 02/28/18 02/28/18 22:59 06:59 14:59 Intake Total 2587 Output Total 700 1255 1000 Balance -700 1332 -1000 Lab Results Last 24 Hrs: Laboratory Results - last 24 hr 02/27/18 02/27/18 02/28/18 Range/Units 13:55 17:04 04:40 WBC 20.1 H 13.6 H (4.5-11.0) K/uL RBC 4.18 3.72 (3.30-5.50) M/uL Hgb 11.8 L 10.6 L (12.0-15.0) g/dL Hct 37.7 33.7 L (36.0-48.0) % MCV 90 91 (80-98) fL MCH 28 29 (27-31) pg MCHC 31 L 32 (32-36) % Plt Count 319 279 (150-400) K/uL Neut % (Auto) 89 H (36-66) % Lymph % (Auto) 7 L (24-44) % [place] % (Auto) 5 (2-6) % Eos % (Auto) 0 L (2-4) % Baso % (Auto) 0 (0-1) % Sodium (140-148) mmol/L Potassium (3.6-5.2) mmol/L Chloride (100-108) mmol/L Carbon Dioxide (21-32) mmol/L Anion Gap (5.0-14.0) mmol/L BUN (7-18) mg/dL Creatinine (0.6-1.0) mg/dL Est Cr Clr Drug Dosing mL/min Estimated GFR (MDRD) (>60) Glucose (74-106) mg/dL Calcium (8.5-10.1) mg/dL Magnesium (1.8-2.4) mg/dL Blood Type O POSITIVE Gel Antibody Screen Negative Crossmatch See Detail 02/28/18 Range/Units 04:40 WBC (4.5-11.0) K/uL RBC (3.30-5.50) M/uL Hgb (12.0-15.0) g/dL Hct (36.0-48.0) % MCV (80-98) fL MCH (27-31) pg MCHC (32-36) % Plt Count (150-400) K/uL Neut % (Auto) (36-66) % Lymph % (Auto) (24-44) % [place] % (Auto) (2-6) % Eos % (Auto) (2-4) % Baso % (Auto) (0-1) % Sodium 137 L (140-148) mmol/L Potassium 4.0 (3.6-5.2) mmol/L Chloride 104 (100-108) mmol/L Carbon Dioxide 24 (21-32) mmol/L Anion Gap 13.0 (5.0-14.0) mmol/L BUN 10 (7-18) mg/dL Creatinine 1.0 (0.6-1.0) mg/dL Est Cr Clr Drug Dosing 50.37 mL/min Estimated GFR (MDRD) 56 L (>60) Glucose 174 H (74-106) mg/dL Calcium 7.6 L (8.5-10.1) mg/dL Magnesium 1.8 (1.8-2.4) mg/dL Blood Type Gel Antibody Screen Crossmatch Shun Results Last 24 Hrs: Microbiology 02/27/18 15:49 Gram Stain - Final Gallbladder Med Orders - Current: Current Medications Benzocaine/Menthol (Cepacol Sore Throat) 1 lozenge MUCMEM Q1H PRN PRN Reason: Sore Throat Last Admin: 02/28/18 09:30 Dose: 1 jamie Fentanyl Citrate (Fentanyl In Ns 20 Mcg/Ml 30 Ml Stock Feeder) 0 mcg IV ASDIRECTED PRN; Protocol PRN Reason: Pain Last Admin: 02/28/18 01:40 Dose: 600 mcg Ciprofloxacin/Dextrose 400 mg/ (Premix) 200 mls @ 200 mls/hr IV Q12H [facility] Last Admin: 02/28/18 13:43 Dose: 200 mls/hr Metronidazole 500 mg/ Premix 100 mls @ 100 mls/hr IV Q8H [facility] Last Admin: 02/28/18 08:13 Dose: 100 mls/hr Potassium Chloride/Dextrose/Sod Cl (D5 1/2 Ns W/ 20 Meq/L Kcl) 1,000 mls @ 75 mls/hr IV ASDIRECTED [facility] Last Admin: 02/28/18 09:30 Dose: 75 mls/hr Lorazepam (Ativan) 1 mg IVPUSH Q4H PRN PRN Reason: Anxiety Naloxone HCl (Narcan) 0.4 mg IVPUSH Q2M PRN PRN Reason: Respiratory Distress Ondansetron HCl (Zofran) 4 mg IV Q4H PRN PRN Reason: Nausea/Vomiting Last Admin: 02/27/18 11:32 Dose: 4 mg Pantoprazole Sodium (Protonix Iv) 40 mg IVPUSH Q24H [facility] Last Admin: 02/28/18 05:54 Dose: 40 mg Sodium Chloride (Saline Flush) 10 ml FLUSH ASDIRECTED PRN PRN Reason: Keep Vein Open Last Admin: 02/25/18 22:39 Dose: 10 ml Discontinued Medications Dexamethasone (Dexamethasone) Confirm Administered Dose 4 mg .ROUTE .STK-MED ONE Stop: 02/27/18 14:10 Diphenhydramine HCl (Benadryl) 50 mg IVPUSH ONETIME ONE Stop: 02/25/18 21:43 Last Admin: 02/25/18 21:44 Dose: 50 mg Diphenhydramine HCl (Benadryl) Confirm Administered Dose 50 mg .ROUTE .STK-MED ONE Stop: 02/25/18 21:44 Last Admin: 02/25/18 21:49 Dose: Not Given Enoxaparin Sodium (Lovenox) 40 mg SUBCUT Q24H [facility] Last Admin: 02/27/18 10:17 Dose: 40 mg Fentanyl (Sublimaze) Confirm Administered Dose 250 mcg .ROUTE .STK-MED ONE Stop: 02/27/18 14:10 Fentanyl (Sublimaze) Confirm Administered Dose 250 mcg .ROUTE .STK-MED ONE Stop: 02/27/18 14:54 Fentanyl Citrate (Fentanyl In Ns 20 Mcg/Ml 30 Ml Stock Feeder) 0 mcg IV ASDIRECTED PRN; Protocol PRN Reason: Pain Last Admin: 02/26/18 12:51 Dose: 600 mcg Glycopyrrolate (Robinul) Confirm Administered Dose 1 mg .ROUTE .STK-MED ONE Stop: 02/27/18 14:10 Hydromorphone HCl (Dilaudid) 0.5 mg IVPUSH ONETIME ONE Stop: 02/25/18 21:14 Last Admin: 02/25/18 21:33 Dose: 0.5 mg Sodium Chloride (Normal Saline) 1,000 mls @ 999 mls/hr IV ASDIRECTED [facility] Last Admin: 02/25/18 21:28 Dose: 999 mls/hr Sodium Chloride (Normal Saline) 80 mls @ 3 mls/sec IV ASDIRECTED [facility] Last Admin: 02/25/18 22:39 Dose: 3 mls/sec Ciprofloxacin/Dextrose 400 mg/ (Premix) 200 mls @ 200 mls/hr IV ONETIME ONE Stop: 02/26/18 01:18 Last Admin: 02/26/18 02:19 Dose: 200 mls/hr Metronidazole 500 mg/ Premix 100 mls @ 100 mls/hr IV ONETIME ONE Stop: 02/26/18 01:18 Last Admin: 02/26/18 00:54 Dose: 100 mls/hr Sodium Chloride (Normal Saline) 1,000 mls @ 125 mls/hr IV ASDIRECTED [facility] Last Admin: 02/26/18 08:11 Dose: 125 mls/hr Sodium Chloride (Normal Saline) 1,000 mls @ 125 mls/hr IV ASDIRECTED [facility] Last Admin: 02/27/18 05:58 Dose: 125 mls/hr Ciprofloxacin/Dextrose 400 mg/ (Premix) 200 mls @ 200 mls/hr IV Q12H [facility] Last Admin: 02/26/18 06:13 Dose: Not Given Metronidazole 500 mg/ Premix 100 mls @ 100 mls/hr IV Q8H [facility] Last Admin: 02/26/18 06:14 Dose: Not Given Magnesium Sulfate 2 gm/ Premix 50 mls @ 25 mls/hr IV ONETIME ONE Stop: 02/27/18 10:59 Last Admin: 02/27/18 10:26 Dose: 25 mls/hr Sodium Chloride (Normal Saline) 81 mls @ 3.5 mls/sec IV ASDIRECTED [facility] Stop: 02/27/18 23:00 Last Admin: 02/27/18 12:09 Dose: 3.5 mls/sec Lactated Ringer's (Ringers, Lactated) Confirm Administered Dose 1,000 mls @ as directed .ROUTE .STK-MED ONE Stop: 02/27/18 15:22 Potassium Chloride/Dextrose/Sod Cl (D5 1/2 Ns W/ 20 Meq/L Kcl) 1,000 mls @ 150 mls/hr IV ASDIRECTED [facility] Last Admin: 02/28/18 00:15 Dose: 150 mls/hr Iopamidol (Isovue-300 (61%)) 132 ml IV . DIRECTED [facility] Last Admin: 02/25/18 22:39 Dose: 132 ml Iopamidol (Isovue-300 (61%)) 136 ml IV . DIRECTED PRN PRN Reason: RADIOLOGY EXAM Stop: 02/28/18 10:26 Last Admin: 02/27/18 12:08 Dose: 136 ml Lorazepam (Ativan) 2 mg IVPUSH Q4H PRN PRN Reason: Anxiety Last Admin: 02/27/18 01:16 Dose: 1 mg Lorazepam (Ativan) Confirm Administered Dose 2 mg .ROUTE .STK-MED ONE Stop: 02/27/18 01:14 Last Admin: 02/27/18 02:18 Dose: Not Given Magnesium Oxide (Magnesium Oxide) 400 mg PO BID [facility] Last Admin: 02/27/18 09:01 Dose: 400 mg Methylprednisolone Sodium Succinate (Solu-Medrol) 125 mg IVPUSH ONETIME ONE Stop: 02/25/18 21:43 Last Admin: 02/25/18 21:45 Dose: 125 mg Methylprednisolone Sodium Succinate (Solu-Medrol) Confirm Administered Dose 125 mg .ROUTE .STK-MED ONE Stop: 02/25/18 21:44 Last Admin: 02/25/18 21:49 Dose: Not Given Morphine Sulfate (Morphine) 1 mg IVPUSH Q1H PRN PRN Reason: Abdominal Pain Last Admin: 02/26/18 06:17 Dose: 1 mg Morphine Sulfate (Morphine) Confirm Administered Dose 2 mg .ROUTE .STK-MED ONE Stop: 02/26/18 06:16 Last Admin: 02/26/18 06:35 Dose: Not Given Naloxone HCl (Narcan) 0.1 mg IVPUSH Q2M PRN PRN Reason: Respiratory Distress Neostigmine Methylsulfate (Neostigmine) Confirm Administered Dose 5 mg .ROUTE .STK-MED ONE Stop: 02/27/18 14:10 Ondansetron HCl (Zofran) 4 mg IVPUSH ONETIME ONE Stop: 02/25/18 21:14 Last Admin: 02/25/18 21:30 Dose: 4 mg Ondansetron HCl (Zofran) Confirm Administered Dose 4 mg .ROUTE .STK-MED ONE Stop: 02/27/18 14:10 Pantoprazole Sodium (Protonix Iv) Confirm Administered Dose 40 mg .ROUTE .STK -MED ONE Stop: 02/27/18 06:20 Last Admin: 02/27/18 06:28 Dose: Not Given Propofol (Diprivan 20 Ml) Confirm Administered Dose 200 mg .ROUTE .STK-MED ONE Stop: 02/27/18 14:10 Rocuronium [place] (Zemuron) Confirm Administered Dose 50 mg .ROUTE .STK-MED ONE Stop: 02/27/18 14:10 - Exam Wound/Incisions: No Drainage Quality Assessment: Urine Catheter, DVT Prophylaxis General: Alert, Oriented, Cooperative, No Acute Distress Lungs: Clear to Auscultation, Normal Respiratory Effort Cardiovascular: Regular Rate, Regular Rhythm GI/Abdominal Exam: Other (Ostomy is dark. ). No: Normal Bowel Sounds Extremities: Normal Inspection Skin: Warm, Dry Neurological: No New Focal Deficit Psy/Mental Status: Alert, Normal Affect, Normal Mood - Problem List & Annotations (1) Acute diverticulitis of intestine SNOMED Code(s): 000617738 Code(s): K57.92 - DVTRCLI OF INTEST, PART UNSP, W/O PERF OR ABSCESS W/O BLEED Status: Acute Current Visit: Yes (2) Perforation bowel SNOMED Code(s): 06427090 Code(s): K63.1 - PERFORATION OF INTESTINE (NONTRAUMATIC) Status: Acute Current Visit: Yes - Problem List Review Problem List Initiated/Reviewed/Updated: Yes - My Orders Last 24 Hours: Active Orders 24 hr Category Date Time Status Patient Status [ADT] Routine ADT 02/27/18 16:33 Active Transfer Patient (Change bed) [ADT] Routine ADT 02/28/18 10:04 Ordered Ambulate [RC] PER UNIT ROUTINE Care 02/27/18 16:33 Active Communication Order [RC] ASDIRECTED Care 02/27/18 16:49 Active Dorsiflex/Plantar flex x 10 [RC] QSHIFT Care 02/27/18 16:33 Active Drain Management [RC] QSHIFT Care 02/27/18 16:36 Active Gastrointestinal Tube Mgmt [RC] Q12H Care 02/27/18 16:35 Active Head of Bed Elevation [RC] CONTINUOUS Care 02/27/18 16:33 Active Intake and Output [RC] Q4HR Care 02/27/18 16:36 Active Notify Provider Vital Signs [RC] PRN Care 02/27/18 16:36 Active Oxygen Therapy [RC] PRN Care 02/27/18 16:33 Active RT Incentive Spirometry [RC] Q1HWA Care 02/27/18 16:33 Active Turn, Cough, Deep Breathe [RC] Q1HWA Care 02/27/18 16:33 Active Up to Chair [RC] TIDMEALS Care 02/27/18 16:33 Active Respiratory Care Assess and Treatment [CONS] Routine Cons 02/27/18 16:33 Active Nothing Per Oral Diet [DIET] Diet 02/27/18 Dinner Active BASIC METABOLIC PANEL,BMP [CHEM] DAILY Lab 03/01/18 05:11 Ordered BASIC METABOLIC PANEL,BMP [CHEM] DAILY Lab 03/02/18 05:11 Ordered BASIC METABOLIC PANEL,BMP [CHEM] DAILY Lab 03/03/18 05:11 Ordered BASIC METABOLIC PANEL,BMP [CHEM] DAILY Lab 03/04/18 05:11 Ordered BASIC METABOLIC PANEL,BMP [CHEM] DAILY Lab 03/05/18 05:11 Ordered BASIC METABOLIC PANEL,BMP [CHEM] DAILY Lab 03/06/18 05:11 Ordered BASIC METABOLIC PANEL,BMP [CHEM] DAILY Lab 03/07/18 05:11 Ordered CBC W/O DIFF,HEMOGRAM [HEME] DAILY Lab 03/01/18 05:11 Ordered CBC W/O DIFF,HEMOGRAM [HEME] DAILY Lab 03/02/18 05:11 Ordered CBC W/O DIFF,HEMOGRAM [HEME] DAILY Lab 03/03/18 05:11 Ordered CBC W/O DIFF,HEMOGRAM [HEME] DAILY Lab 03/04/18 05:11 Ordered CBC W/O DIFF,HEMOGRAM [HEME] DAILY Lab 03/05/18 05:11 Ordered CBC W/O DIFF,HEMOGRAM [HEME] DAILY Lab 03/06/18 05:11 Ordered CBC W/O DIFF,HEMOGRAM [HEME] DAILY Lab 03/07/18 05:11 Ordered CULTURE ANAEROBIC [RM] Routine Lab 02/27/18 15:49 Received CULTURE WOUND + SMEAR [RM] Routine Lab 02/27/18 15:49 Results PATIENT RETYPE [BBK] Urgent Lab 02/27/18 13:55 Results RED BLOOD CELLS LP [BBK] Routine Lab 02/27/18 13:55 Results TYPE AND SCREEN [BBK] Urgent Lab 02/27/18 13:55 Results Benzocaine/Cetylpyrd/Menthol [Cepacol Sore Throat] Med 02/28/18 09:17 Active 1 lozenge MUCMEM Q1H PRN D5 1/2 NS w/ 20 mEq/L KCl 1,000 ml Med 02/28/18 09:15 Active IV ASDIRECTED LORazepam [Ativan] Med 02/28/18 09:17 Active 1 mg IVPUSH Q4H PRN Abdominal Binder [OM.PC] Per Unit Routine Oth 02/27/18 16:35 Ordered DVT/VTE Prophylaxis Reflex [OM.PC] Per Unit Routine Oth 02/27/18 16:40 Ordered Sequential Compression Device [OM.PC] Routine Oth 02/27/18 16:33 Ordered Medication Orders Benzocaine/Menthol (Cepacol Sore Throat) 1 lozenge MUCMEM Q1H PRN PRN Reason: Sore Throat Last Admin: 02/28/18 09:30 Dose: 1 jamie Fentanyl Citrate (Fentanyl In Ns 20 Mcg/Ml 30 Ml Stock Feeder) 0 mcg IV ASDIRECTED PRN; Protocol PRN Reason: Pain Last Admin: 02/28/18 01:40 Dose: 600 mcg Ciprofloxacin/Dextrose 400 mg/ (Premix) 200 mls @ 200 mls/hr IV Q12H [facility] Last Admin: 02/28/18 13:43 Dose: 200 mls/hr Infusion: 02/28/18 02:45 Dose: 200 mls/hr Admin: 02/28/18 01:45 Dose: 200 mls/hr Infusion: 02/27/18 14:39 Dose: 200 mls/hr Admin: 02/27/18 13:39 Dose: 200 mls/hr Infusion: 02/27/18 02:45 Dose: 200 mls/hr Admin: 02/27/18 01:45 Dose: 200 mls/hr Infusion: 02/26/18 15:29 Dose: 200 mls/hr Admin: 02/26/18 14:29 Dose: 200 mls/hr Metronidazole 500 mg/ Premix 100 mls @ 100 mls/hr IV Q8H [facility] Last Admin: 02/28/18 08:13 Dose: 100 mls/hr Infusion: 02/28/18 01:49 Dose: 100 mls/hr Admin: 02/28/18 00:49 Dose: 100 mls/hr Admin: 02/27/18 18:43 Dose: Infusion: 02/27/18 15:25 Dose: 100 mls/hr Admin: 02/27/18 14:25 Dose: 100 mls/hr Infusion: 02/27/18 09:48 Dose: 100 mls/hr Admin: 02/27/18 08:48 Dose: 100 mls/hr Infusion: 02/27/18 03:51 Dose: 100 mls/hr Admin: 02/27/18 02:51 Dose: 100 mls/hr Infusion: 02/26/18 21:06 Dose: 100 mls/hr Admin: 02/26/18 20:06 Dose: 100 mls/hr Infusion: 02/26/18 13:00 Dose: 100 mls/hr Admin: 02/26/18 12:00 Dose: 100 mls/hr Potassium Chloride/Dextrose/Sod Cl (D5 1/2 Ns W/ 20 Meq/L Kcl) 1,000 mls @ 75 mls/hr IV ASDIRECTED [facility] Last Admin: 02/28/18 09:30 Dose: 75 mls/hr Lorazepam (Ativan) 1 mg IVPUSH Q4H PRN PRN Reason: Anxiety Naloxone HCl (Narcan) 0.4 mg IVPUSH Q2M PRN PRN Reason: Respiratory Distress Ondansetron HCl (Zofran) 4 mg IV Q4H PRN PRN Reason: Nausea/Vomiting Last Admin: 02/27/18 11:32 Dose: 4 mg Admin: 02/26/18 08:34 Dose: 4 mg Pantoprazole Sodium (Protonix Iv) 40 mg IVPUSH Q24H [facility] Last Admin: 02/28/18 05:54 Dose: 40 mg Admin: 02/27/18 06:28 Dose: 40 mg Sodium Chloride (Saline Flush) 10 ml FLUSH ASDIRECTED PRN PRN Reason: Keep Vein Open Last Admin: 02/25/18 22:39 Dose: 10 ml Admin: 02/25/18 21:49 Dose: 10 ml Admin: 02/25/18 21:30 Dose: 10 ml - Assessment Assessment (Free Text/Narrative):: WBC is decreasing. Good UOP. Ostomy is dark. Abdomen is quiet. - Plan Plan (Free Text/Narrative):: No change.
[2018-03-01] MEDS: D5 1/2 NS w/ 20 mEq/L KCl 1,000 ML IV SCH ×2 (00:09→19:15)
[2018-03-01] MEDS: metroNIDAZOLE/Normal Saline 500 MG in Premix Bag 1 BAG IV SCH ×3 (00:33→18:00)
[2018-03-01] MEDS: Ciprofloxacin in D5W 400 MG in Premix Bag 1 BAG IV SCH ×4 (01:50→15:25)
[2018-03-01] MEDS: Ondansetron 4 MG/2 ML SDV IV PRN ×2 (03:54→19:17)
[2018-03-01] MEDS: Pantoprazole 40 MG Vial IVPUSH SCH (05:48)
--- NOTE | 2018-03-01 06:32 | PCM.SURGPN ---
- General Info Date of Service: 03/01/18 Date of Surgery/Procedure: 02/27/18 POD#: 2 Post-Op Diagnosis: Perforated sigmoid diverticulitis ([place] 3). Functional Status: Reports: Ambulating, Urinating (Ruiz was plugged and with irrigation removed clot and opened with 300 ml's removed.), New Symptoms (Sore throat and ear pain from NG tube.) - Review of Systems General: Reports: No Symptoms HEENT: Reports: Ear Pain, Sore Throat Pulmonary: Reports: No Symptoms Cardiovascular: Reports: No Symptoms Gastrointestinal: Reports: Abdominal Pain (Better than preoperative. ). Denies : Flatus Genitourinary: Reports: Other (Ruiz was plugged and unplugged last night. ) Musculoskeletal: Denies: Back Pain Skin: Reports: No Symptoms Neurological: Reports: No Symptoms Psychiatric: Reports: No Symptoms - Patient Data Vitals - Most Recent: Last Vital Signs Temp 97.8 F 03/01/18 04:00 Pulse 97 02/28/18 16:00 Resp 14 03/01/18 04:00 BP 111/54 L 03/01/18 04:00 Pulse Ox 96 03/01/18 04:00 Weight - Most Recent: 201 lb 3.2 oz I&O - Last 24 Hours: Intake & Output 02/28/18 02/28/18 03/01/18 14:59 22:59 06:59 Intake Total 1340 985 Output Total 1000 1140 1260 Balance -1000 200 -275 Lab Results Last 24 Hrs: Laboratory Results - last 24 hr 03/01/18 03/01/18 Range/Units 04:45 04:45 WBC 13.2 H (4.5-11.0) K/uL RBC 3.65 (3.30-5.50) M/uL Hgb 10.4 L (12.0-15.0) g/dL Hct 33.2 L (36.0-48.0) % MCV 91 (80-98) fL MCH 29 (27-31) pg MCHC 31 L (32-36) % Plt Count 289 (150-400) K/uL Sodium 136 L (140-148) mmol/L Potassium 3.7 (3.6-5.2) mmol/L Chloride 102 (100-108) mmol/L Carbon Dioxide 29 (21-32) mmol/L Anion Gap 8.7 (5.0-14.0) mmol/L BUN 8 (7-18) mg/dL Creatinine 1.0 (0.6-1.0) mg/dL Est Cr Clr Drug Dosing 50.37 mL/min Estimated GFR (MDRD) 56 L (>60) Glucose 129 H (74-106) mg/dL Calcium 7.8 L (8.5-10.1) mg/dL Med Orders - Current: Current Medications Benzocaine/Menthol (Cepacol Sore Throat) 1 lozenge MUCMEM Q1H PRN PRN Reason: Sore Throat Last Admin: 02/28/18 09:30 Dose: 1 jamie Fentanyl Citrate (Fentanyl In Ns 20 Mcg/Ml 30 Ml Fish Icer) 0 mcg IV ASDIRECTED PRN; Protocol PRN Reason: Pain Last Admin: 02/28/18 01:40 Dose: 600 mcg Ciprofloxacin/Dextrose 400 mg/ (Premix) 200 mls @ 200 mls/hr IV Q12H [facility] Last Admin: 03/01/18 01:50 Dose: 200 mls/hr Metronidazole 500 mg/ Premix 100 mls @ 100 mls/hr IV Q8H [facility] Last Admin: 03/01/18 00:33 Dose: 100 mls/hr Potassium Chloride/Dextrose/Sod Cl (D5 1/2 Ns W/ 20 Meq/L Kcl) 1,000 mls @ 75 mls/hr IV ASDIRECTED [facility], [facility] Last Admin: 03/01/18 00:09 Dose: 75 mls/hr Lorazepam (Ativan) 1 mg IVPUSH Q4H PRN PRN Reason: Anxiety Naloxone HCl (Narcan) 0.4 mg IVPUSH Q2M PRN PRN Reason: Respiratory Distress Ondansetron HCl (Zofran) 4 mg IV Q4H PRN PRN Reason: Nausea/Vomiting Last Admin: 03/01/18 03:54 Dose: 4 mg Pantoprazole Sodium (Protonix Iv) 40 mg IVPUSH Q24H [facility] Last Admin: 03/01/18 05:48 Dose: 40 mg Sodium Chloride (Saline Flush) 10 ml FLUSH ASDIRECTED PRN PRN Reason: Keep Vein Open Last Admin: 02/25/18 22:39 Dose: 10 ml Discontinued Medications Dexamethasone (Dexamethasone) Confirm Administered Dose 4 mg .ROUTE .STK-MED ONE Stop: 02/27/18 14:10 Diphenhydramine HCl (Benadryl) 50 mg IVPUSH ONETIME ONE Stop: 02/25/18 21:43 Last Admin: 02/25/18 21:44 Dose: 50 mg Diphenhydramine HCl (Benadryl) Confirm Administered Dose 50 mg .ROUTE .STK-MED ONE Stop: 02/25/18 21:44 Last Admin: 02/25/18 21:49 Dose: Not Given Enoxaparin Sodium (Lovenox) 40 mg SUBCUT Q24H [facility] Last Admin: 02/27/18 10:17 Dose: 40 mg Fentanyl (Sublimaze) Confirm Administered Dose 250 mcg .ROUTE .STK-MED ONE Stop: 02/27/18 14:10 Fentanyl (Sublimaze) Confirm Administered Dose 250 mcg .ROUTE .STK-MED ONE Stop: 02/27/18 14:54 Fentanyl Citrate (Fentanyl In Ns 20 Mcg/Ml 30 Ml Fish Icer) 0 mcg IV ASDIRECTED PRN; Protocol PRN Reason: Pain Last Admin: 02/26/18 12:51 Dose: 600 mcg Glycopyrrolate (Robinul) Confirm Administered Dose 1 mg .ROUTE .STK-MED ONE Stop: 02/27/18 14:10 Hydromorphone HCl (Dilaudid) 0.5 mg IVPUSH ONETIME ONE Stop: 02/25/18 21:14 Last Admin: 02/25/18 21:33 Dose: 0.5 mg Sodium Chloride (Normal Saline) 1,000 mls @ 999 mls/hr IV ASDIRECTED [facility] Last Admin: 02/25/18 21:28 Dose: 999 mls/hr Sodium Chloride (Normal Saline) 80 mls @ 3 mls/sec IV ASDIRECTED [facility] Last Admin: 02/25/18 22:39 Dose: 3 mls/sec Ciprofloxacin/Dextrose 400 mg/ (Premix) 200 mls @ 200 mls/hr IV ONETIME ONE Stop: 02/26/18 01:18 Last Admin: 02/26/18 02:19 Dose: 200 mls/hr Metronidazole 500 mg/ Premix 100 mls @ 100 mls/hr IV ONETIME ONE Stop: 02/26/18 01:18 Last Admin: 02/26/18 00:54 Dose: 100 mls/hr Sodium Chloride (Normal Saline) 1,000 mls @ 125 mls/hr IV ASDIRECTED [facility] Last Admin: 02/26/18 08:11 Dose: 125 mls/hr Sodium Chloride (Normal Saline) 1,000 mls @ 125 mls/hr IV ASDIRECTED [facility] Last Admin: 02/27/18 05:58 Dose: 125 mls/hr Ciprofloxacin/Dextrose 400 mg/ (Premix) 200 mls @ 200 mls/hr IV Q12H [facility] Last Admin: 02/26/18 06:13 Dose: Not Given Metronidazole 500 mg/ Premix 100 mls @ 100 mls/hr IV Q8H [facility] Last Admin: 02/26/18 06:14 Dose: Not Given Magnesium Sulfate 2 gm/ Premix 50 mls @ 25 mls/hr IV ONETIME ONE Stop: 02/27/18 10:59 Last Admin: 02/27/18 10:26 Dose: 25 mls/hr Sodium Chloride (Normal Saline) 81 mls @ 3.5 mls/sec IV ASDIRECTED [facility] Stop: 02/27/18 23:00 Last Admin: 02/27/18 12:09 Dose: 3.5 mls/sec Lactated Ringer's (Ringers, Lactated) Confirm Administered Dose 1,000 mls @ as directed .ROUTE .STK-MED ONE Stop: 02/27/18 15:22 Potassium Chloride/Dextrose/Sod Cl (D5 1/2 Ns W/ 20 Meq/L Kcl) 1,000 mls @ 150 mls/hr IV ASDIRECTED [facility] Last Admin: 02/28/18 00:15 Dose: 150 mls/hr Iopamidol (Isovue-300 (61%)) 132 ml IV . DIRECTED [facility], [facility] Last Admin: 02/25/18 22:39 Dose: 132 ml Iopamidol (Isovue-300 (61%)) 136 ml IV . DIRECTED PRN PRN Reason: RADIOLOGY EXAM Stop: 02/28/18 10:26 Last Admin: 02/27/18 12:08 Dose: 136 ml Lorazepam (Ativan) 2 mg IVPUSH Q4H PRN PRN Reason: Anxiety Last Admin: 02/27/18 01:16 Dose: 1 mg Lorazepam (Ativan) Confirm Administered Dose 2 mg .ROUTE .STK-MED ONE Stop: 02/27/18 01:14 Last Admin: 02/27/18 02:18 Dose: Not Given Magnesium Oxide (Magnesium Oxide) 400 mg PO BID ALLAN Last Admin: 02/27/18 09:01 Dose: 400 mg Methylprednisolone Sodium Succinate (Solu-Medrol) 125 mg IVPUSH ONETIME ONE Stop: 02/25/18 21:43 Last Admin: 02/25/18 21:45 Dose: 125 mg Methylprednisolone Sodium Succinate (Solu-Medrol) Confirm Administered Dose 125 mg .ROUTE .STK-MED ONE Stop: 02/25/18 21:44 Last Admin: 02/25/18 21:49 Dose: Not Given Morphine Sulfate (Morphine) 1 mg IVPUSH Q1H PRN PRN Reason: Abdominal Pain Last Admin: 02/26/18 06:17 Dose: 1 mg Morphine Sulfate (Morphine) Confirm Administered Dose 2 mg .ROUTE .STK-MED ONE Stop: 02/26/18 06:16 Last Admin: 02/26/18 06:35 Dose: Not Given Naloxone HCl (Narcan) 0.1 mg IVPUSH Q2M PRN PRN Reason: Respiratory Distress Neostigmine Methylsulfate (Neostigmine) Confirm Administered Dose 5 mg .ROUTE .STK-MED ONE Stop: 02/27/18 14:10 Ondansetron HCl (Zofran) 4 mg IVPUSH ONETIME ONE Stop: 02/25/18 21:14 Last Admin: 02/25/18 21:30 Dose: 4 mg Ondansetron HCl (Zofran) Confirm Administered Dose 4 mg .ROUTE .STK-MED ONE Stop: 02/27/18 14:10 Pantoprazole Sodium (Protonix Iv) Confirm Administered Dose 40 mg .ROUTE .STK -MED ONE Stop: 02/27/18 06:20 Last Admin: 02/27/18 06:28 Dose: Not Given Propofol (Diprivan 20 Ml) Confirm Administered Dose 200 mg .ROUTE .STK-MED ONE Stop: 02/27/18 14:10 Rocuronium [place] (Zemuron) Confirm Administered Dose 50 mg .ROUTE .STK-MED ONE Stop: 02/27/18 14:10 - Exam Wound/Incisions: Dressing Dry and Intact Quality Assessment: Urine Catheter, DVT Prophylaxis General: Alert, Oriented, Cooperative, No Acute Distress Lungs: Clear to Auscultation, Normal Respiratory Effort Cardiovascular: Regular Rate, Regular Rhythm GI/Abdominal Exam: Abnormal Bowel Sounds (Quiet abdomen. ). No: Normal Bowel Sounds Extremities: Normal Inspection Skin: Warm, Dry, Intact Psy/Mental Status: Alert, Normal Affect, Depressed - Problem List & Annotations (1) Acute diverticulitis of intestine SNOMED Code(s): 452972068 Code(s): K57.92 - DVTRCLI OF INTEST, PART UNSP, W/O PERF OR ABSCESS W/O BLEED Status: Acute Current Visit: Yes (2) Perforation bowel SNOMED Code(s): 31084380 Code(s): K63.1 - PERFORATION OF INTESTINE (NONTRAUMATIC) Status: Acute Current Visit: Yes - Problem List Review Problem List Initiated/Reviewed/Updated: Yes - My Orders Last 24 Hours: Active Orders 24 hr Category Date Time Status Transfer Patient (Change bed) [ADT] Routine ADT 02/28/18 10:04 Ordered BASIC METABOLIC PANEL,BMP [CHEM] DAILY Lab 03/02/18 05:11 Ordered BASIC METABOLIC PANEL,BMP [CHEM] DAILY Lab 03/03/18 05:11 Ordered BASIC METABOLIC PANEL,BMP [CHEM] DAILY Lab 03/04/18 05:11 Ordered BASIC METABOLIC PANEL,BMP [CHEM] DAILY Lab 03/05/18 05:11 Ordered BASIC METABOLIC PANEL,BMP [CHEM] DAILY Lab 03/06/18 05:11 Ordered BASIC METABOLIC PANEL,BMP [CHEM] DAILY Lab 03/07/18 05:11 Ordered CBC W/O DIFF,HEMOGRAM [HEME] DAILY Lab 03/02/18 05:11 Ordered CBC W/O DIFF,HEMOGRAM [HEME] DAILY Lab 03/03/18 05:11 Ordered CBC W/O DIFF,HEMOGRAM [HEME] DAILY Lab 03/04/18 05:11 Ordered CBC W/O DIFF,HEMOGRAM [HEME] DAILY Lab 03/05/18 05:11 Ordered CBC W/O DIFF,HEMOGRAM [HEME] DAILY Lab 03/06/18 05:11 Ordered CBC W/O DIFF,HEMOGRAM [HEME] DAILY Lab 03/07/18 05:11 Ordered Benzocaine/Cetylpyrd/Menthol [Cepacol Sore Throat] Med 02/28/18 09:17 Active 1 lozenge MUCMEM Q1H PRN D5 1/2 NS w/ 20 mEq/L KCl 1,000 ml Med 02/28/18 09:15 Active IV ASDIRECTED LORazepam [Ativan] Med 02/28/18 09:17 Active 1 mg IVPUSH Q4H PRN Medication Orders Benzocaine/Menthol (Cepacol Sore Throat) 1 lozenge MUCMEM Q1H PRN PRN Reason: Sore Throat Last Admin: 02/28/18 09:30 Dose: 1 jamie Fentanyl Citrate (Fentanyl In Ns 20 Mcg/Ml 30 Ml Fish Icer) 0 mcg IV ASDIRECTED PRN; Protocol PRN Reason: Pain Last Admin: 02/28/18 01:40 Dose: 600 mcg Ciprofloxacin/Dextrose 400 mg/ (Premix) 200 mls @ 200 mls/hr IV Q12H [facility] Last Admin: 03/01/18 01:50 Dose: 200 mls/hr Infusion: 02/28/18 14:43 Dose: 200 mls/hr Admin: 02/28/18 13:43 Dose: 200 mls/hr Infusion: 02/28/18 02:45 Dose: 200 mls/hr Admin: 02/28/18 01:45 Dose: 200 mls/hr Infusion: 02/27/18 14:39 Dose: 200 mls/hr Admin: 02/27/18 13:39 Dose: 200 mls/hr Infusion: 02/27/18 02:45 Dose: 200 mls/hr Admin: 02/27/18 01:45 Dose: 200 mls/hr Infusion: 02/26/18 15:29 Dose: 200 mls/hr Admin: 02/26/18 14:29 Dose: 200 mls/hr Metronidazole 500 mg/ Premix 100 mls @ 100 mls/hr IV Q8H [facility] Last Admin: 03/01/18 00:33 Dose: 100 mls/hr Infusion: 02/28/18 17:39 Dose: 100 mls/hr Admin: 02/28/18 16:39 Dose: 100 mls/hr Infusion: 02/28/18 09:13 Dose: 100 mls/hr Admin: 02/28/18 08:13 Dose: 100 mls/hr Infusion: 02/28/18 01:49 Dose: 100 mls/hr Admin: 02/28/18 00:49 Dose: 100 mls/hr Admin: 02/27/18 18:43 Dose: Infusion: 02/27/18 15:25 Dose: 100 mls/hr Admin: 02/27/18 14:25 Dose: 100 mls/hr Infusion: 02/27/18 09:48 Dose: 100 mls/hr Admin: 02/27/18 08:48 Dose: 100 mls/hr Infusion: 02/27/18 03:51 Dose: 100 mls/hr Admin: 02/27/18 02:51 Dose: 100 mls/hr Infusion: 02/26/18 21:06 Dose: 100 mls/hr Admin: 02/26/18 20:06 Dose: 100 mls/hr Infusion: 02/26/18 13:00 Dose: 100 mls/hr Admin: 02/26/18 12:00 Dose: 100 mls/hr Potassium Chloride/Dextrose/Sod Cl (D5 1/2 Ns W/ 20 Meq/L Kcl) 1,000 mls @ 75 mls/hr IV ASDIRECTED [facility], [facility] Last Admin: 03/01/18 00:09 Dose: 75 mls/hr Infusion: 02/28/18 22:50 Dose: 75 mls/hr Admin: 02/28/18 09:30 Dose: 75 mls/hr Lorazepam (Ativan) 1 mg IVPUSH Q4H PRN PRN Reason: Anxiety Naloxone HCl (Narcan) 0.4 mg IVPUSH Q2M PRN PRN Reason: Respiratory Distress Ondansetron HCl (Zofran) 4 mg IV Q4H PRN PRN Reason: Nausea/Vomiting Last Admin: 03/01/18 03:54 Dose: 4 mg Admin: 02/27/18 11:32 Dose: 4 mg Admin: 02/26/18 08:34 Dose: 4 mg Pantoprazole Sodium (Protonix Iv) 40 mg IVPUSH Q24H [facility] Last Admin: 03/01/18 05:48 Dose: 40 mg Admin: 02/28/18 05:54 Dose: 40 mg Admin: 02/27/18 06:28 Dose: 40 mg Sodium Chloride (Saline Flush) 10 ml FLUSH ASDIRECTED PRN PRN Reason: Keep Vein Open Last Admin: 02/25/18 22:39 Dose: 10 ml Admin: 02/25/18 21:49 Dose: 10 ml Admin: 02/25/18 21:30 Dose: 10 ml - Assessment Assessment (Free Text/Narrative):: Waiting for GI recovery. - Plan Plan (Free Text/Narrative):: PICC for TPN. Flat plate of abdomen to check double J. DPC tomorrow.
[2018-03-01] MEDS: Enoxaparin 40 MG/0.4 ML Syringe SUBCUT SCH (08:29)
--- NOTE | 2018-03-01 08:42 | CR ---
Abdomen 1V Flat CLINICAL HISTORY: Ureteral stent FINDINGS: The bowel gas pattern is nonobstructive. No abnormal masses are noted. Patient has an NG tu be in the distal stomach. There is a double-J ureteral stent in the left collecting system. There is a drain in the pelvis. IMPRESSION: Left ureteral stent appears in normal position Surgical drain in the pelvis NG tube in the distal stomach.
[2018-03-01] MEDS ORDERED: Phenol/Sodium Phenolate Spray 180 ML Bottle PO PRN (08:55)
--- NOTE | 2018-03-01 08:58 | PCM.PN ---
- General Info Date of Service: 03/01/18 Functional Status: Reports: Pain Controlled - Review of Systems General: Denies: Fever Gastrointestinal: Reports: Abdominal Pain, Nausea Systems Review Comment:: No acute events overnight. Abdominal pain has been moderate but fairly well- controlled. Some nausea this morning. Still has a sore throat. No fevers. No gas or stool in the ostomy at this time. Minimal NG tube drainage. - Patient Data Vitals - Most Recent: Last Vital Signs Temp 36.3 C 03/01/18 08:00 Pulse 82 03/01/18 08:00 Resp 18 03/01/18 08:00 BP 154/76 H 03/01/18 08:00 Pulse Ox 92 L 03/01/18 08:00 Weight - Most Recent: 91.263 kg I&O - Last 24 Hours: Intake & Output 02/28/18 03/01/18 03/01/18 22:59 06:59 14:59 Intake Total 1340 985 Output Total 1140 1260 Balance 200 -275 Lab Results Last 24 Hours: Laboratory Results - last 24 hr 03/01/18 03/01/18 Range/Units 04:45 04:45 WBC 13.2 H (4.5-11.0) K/uL RBC 3.65 (3.30-5.50) M/uL Hgb 10.4 L (12.0-15.0) g/dL Hct 33.2 L (36.0-48.0) % MCV 91 (80-98) fL MCH 29 (27-31) pg MCHC 31 L (32-36) % Plt Count 289 (150-400) K/uL Sodium 136 L (140-148) mmol/L Potassium 3.7 (3.6-5.2) mmol/L Chloride 102 (100-108) mmol/L Carbon Dioxide 29 (21-32) mmol/L Anion Gap 8.7 (5.0-14.0) mmol/L BUN 8 (7-18) mg/dL Creatinine 1.0 (0.6-1.0) mg/dL Est Cr Clr Drug Dosing 50.37 mL/min Estimated GFR (MDRD) 56 L (>60) Glucose 129 H (74-106) mg/dL Calcium 7.8 L (8.5-10.1) mg/dL Shun Results Last 24 Hours: Microbiology 02/27/18 15:49 Gram Stain - Final Gallbladder Wound Culture - Preliminary NO GROWTH AFTER 2 DAYS Med Orders - Current: Current Medications Benzocaine/Menthol (Cepacol Sore Throat) 1 lozenge MUCMEM Q1H PRN PRN Reason: Sore Throat Last Admin: 02/28/18 09:30 Dose: 1 jamie Enoxaparin Sodium (Lovenox) 40 mg SUBCUT DAILY [facility] Last Admin: 03/01/18 08:29 Dose: 40 mg Fentanyl Citrate (Fentanyl In Ns 20 Mcg/Ml 30 Ml Art Educator) 0 mcg IV ASDIRECTED PRN; Protocol PRN Reason: Pain Last Admin: 02/28/18 01:40 Dose: 600 mcg Ciprofloxacin/Dextrose 400 mg/ (Premix) 200 mls @ 200 mls/hr IV Q12H [facility] Last Admin: 03/01/18 01:50 Dose: 200 mls/hr Metronidazole 500 mg/ Premix 100 mls @ 100 mls/hr IV Q8H [facility] Last Admin: 03/01/18 08:29 Dose: 100 mls/hr Potassium Chloride/Dextrose/Sod Cl (D5 1/2 Ns W/ 20 Meq/L Kcl) 1,000 mls @ 75 mls/hr IV ASDIRECTED [facility] Last Admin: 03/01/18 00:09 Dose: 75 mls/hr Lorazepam (Ativan) 1 mg IVPUSH Q4H PRN PRN Reason: Anxiety Naloxone HCl (Narcan) 0.4 mg IVPUSH Q2M PRN PRN Reason: Respiratory Distress Ondansetron HCl (Zofran) 4 mg IV Q4H PRN PRN Reason: Nausea/Vomiting Last Admin: 03/01/18 03:54 Dose: 4 mg Pantoprazole Sodium (Protonix Iv) 40 mg IVPUSH Q24H [facility] Last Admin: 03/01/18 05:48 Dose: 40 mg Sodium Chloride (Saline Flush) 10 ml FLUSH ASDIRECTED PRN PRN Reason: Keep Vein Open Last Admin: 02/25/18 22:39 Dose: 10 ml Discontinued Medications Dexamethasone (Dexamethasone) Confirm Administered Dose 4 mg .ROUTE .STK-MED ONE Stop: 02/27/18 14:10 Diphenhydramine HCl (Benadryl) 50 mg IVPUSH ONETIME ONE Stop: 02/25/18 21:43 Last Admin: 02/25/18 21:44 Dose: 50 mg Diphenhydramine HCl (Benadryl) Confirm Administered Dose 50 mg .ROUTE .STK-MED ONE Stop: 02/25/18 21:44 Last Admin: 02/25/18 21:49 Dose: Not Given Enoxaparin Sodium (Lovenox) 40 mg SUBCUT Q24H [facility] Last Admin: 02/27/18 10:17 Dose: 40 mg Fentanyl (Sublimaze) Confirm Administered Dose 250 mcg .ROUTE .STK-MED ONE Stop: 02/27/18 14:10 Fentanyl (Sublimaze) Confirm Administered Dose 250 mcg .ROUTE .STK-MED ONE Stop: 02/27/18 14:54 Fentanyl Citrate (Fentanyl In Ns 20 Mcg/Ml 30 Ml Art Educator) 0 mcg IV ASDIRECTED PRN; Protocol PRN Reason: Pain Last Admin: 02/26/18 12:51 Dose: 600 mcg Glycopyrrolate (Robinul) Confirm Administered Dose 1 mg .ROUTE .K-MED ONE Stop: 02/27/18 14:10 Hydromorphone HCl (Dilaudid) 0.5 mg IVPUSH ONETIME ONE Stop: 02/25/18 21:14 Last Admin: 02/25/18 21:33 Dose: 0.5 mg Sodium Chloride (Normal Saline) 1,000 mls @ 999 mls/hr IV ASDIRECTED [facility] Last Admin: 02/25/18 21:28 Dose: 999 mls/hr Sodium Chloride (Normal Saline) 80 mls @ 3 mls/sec IV ASDIRECTED [facility] Last Admin: 02/25/18 22:39 Dose: 3 mls/sec Ciprofloxacin/Dextrose 400 mg/ (Premix) 200 mls @ 200 mls/hr IV ONETIME ONE Stop: 02/26/18 01:18 Last Admin: 02/26/18 02:19 Dose: 200 mls/hr Metronidazole 500 mg/ Premix 100 mls @ 100 mls/hr IV ONETIME ONE Stop: 02/26/18 01:18 Last Admin: 02/26/18 00:54 Dose: 100 mls/hr Sodium Chloride (Normal Saline) 1,000 mls @ 125 mls/hr IV ASDIRECTED [facility] Last Admin: 02/26/18 08:11 Dose: 125 mls/hr Sodium Chloride (Normal Saline) 1,000 mls @ 125 mls/hr IV ASDIRECTED [facility] Last Admin: 02/27/18 05:58 Dose: 125 mls/hr Ciprofloxacin/Dextrose 400 mg/ (Premix) 200 mls @ 200 mls/hr IV Q12H [facility] Last Admin: 02/26/18 06:13 Dose: Not Given Metronidazole 500 mg/ Premix 100 mls @ 100 mls/hr IV Q8H [facility] Last Admin: 02/26/18 06:14 Dose: Not Given Magnesium Sulfate 2 gm/ Premix 50 mls @ 25 mls/hr IV ONETIME ONE Stop: 02/27/18 10:59 Last Admin: 02/27/18 10:26 Dose: 25 mls/hr Sodium Chloride (Normal Saline) 81 mls @ 3.5 mls/sec IV ASDIRECTED [facility] Stop: 02/27/18 23:00 Last Admin: 02/27/18 12:09 Dose: 3.5 mls/sec Lactated Ringer's (Ringers, Lactated) Confirm Administered Dose 1,000 mls @ as directed .ROUTE .STK-MED ONE Stop: 02/27/18 15:22 Potassium Chloride/Dextrose/Sod Cl (D5 1/2 Ns W/ 20 Meq/L Kcl) 1,000 mls @ 150 mls/hr IV ASDIRECTED [facility] Last Admin: 02/28/18 00:15 Dose: 150 mls/hr Iopamidol (Isovue-300 (61%)) 132 ml IV . DIRECTED [facility] Last Admin: 02/25/18 22:39 Dose: 132 ml Iopamidol (Isovue-300 (61%)) 136 ml IV . DIRECTED PRN PRN Reason: RADIOLOGY EXAM Stop: 02/28/18 10:26 Last Admin: 02/27/18 12:08 Dose: 136 ml Lorazepam (Ativan) 2 mg IVPUSH Q4H PRN PRN Reason: Anxiety Last Admin: 02/27/18 01:16 Dose: 1 mg Lorazepam (Ativan) Confirm Administered Dose 2 mg .ROUTE .STK-MED ONE Stop: 02/27/18 01:14 Last Admin: 02/27/18 02:18 Dose: Not Given Magnesium Oxide (Magnesium Oxide) 400 mg PO BID [facility] Last Admin: 02/27/18 09:01 Dose: 400 mg Methylprednisolone Sodium Succinate (Solu-Medrol) 125 mg IVPUSH ONETIME ONE Stop: 02/25/18 21:43 Last Admin: 02/25/18 21:45 Dose: 125 mg Methylprednisolone Sodium Succinate (Solu-Medrol) Confirm Administered Dose 125 mg .ROUTE .STK-MED ONE Stop: 02/25/18 21:44 Last Admin: 02/25/18 21:49 Dose: Not Given Morphine Sulfate (Morphine) 1 mg IVPUSH Q1H PRN PRN Reason: Abdominal Pain Last Admin: 02/26/18 06:17 Dose: 1 mg Morphine Sulfate (Morphine) Confirm Administered Dose 2 mg .ROUTE .STK-MED ONE Stop: 02/26/18 06:16 Last Admin: 02/26/18 06:35 Dose: Not Given Naloxone HCl (Narcan) 0.1 mg IVPUSH Q2M PRN PRN Reason: Respiratory Distress Neostigmine Methylsulfate (Neostigmine) Confirm Administered Dose 5 mg .ROUTE .STK-MED ONE Stop: 02/27/18 14:10 Ondansetron HCl (Zofran) 4 mg IVPUSH ONETIME ONE Stop: 02/25/18 21:14 Last Admin: 02/25/18 21:30 Dose: 4 mg Ondansetron HCl (Zofran) Confirm Administered Dose 4 mg .ROUTE .STK-MED ONE Stop: 02/27/18 14:10 Pantoprazole Sodium (Protonix Iv) Confirm Administered Dose 40 mg .ROUTE .STK -MED ONE Stop: 02/27/18 06:20 Last Admin: 02/27/18 06:28 Dose: Not Given Propofol (Diprivan 20 Ml) Confirm Administered Dose 200 mg .ROUTE .STK-MED ONE Stop: 02/27/18 14:10 Rocuronium Carn[place] (Zemuron) Confirm Administered Dose 50 mg .ROUTE .STK-MED ONE Stop: 02/27/18 14:10 - Exam Quality Assessment: Supplemental Oxygen General: Alert, Oriented, Cooperative, No Acute Distress Neck: Supple Lungs: Clear to Auscultation, Normal Respiratory Effort Cardiovascular: Regular Rate, Regular Rhythm GI/Abdominal Exam: Soft, No Distention, Abnormal Bowel Sounds (hypoactive but present ) Extremities: No Pedal Edema Psy/Mental Status: Alert, Normal Affect - Problem List Review Problem List Initiated/Reviewed/Updated: Yes - My Orders Last 24 Hours: My Active Orders 02/28/18 09:15 D5 1/2 NS w/ 20 mEq/L KCl 1,000 ml IV ASDIRECTED 02/28/18 09:17 Benzocaine/Cetylpyrd/Menthol [Cepacol Sore Throat] 1 lozenge MUCMEM Q1H PRN LORazepam [Ativan] 1 mg IVPUSH Q4H PRN 02/28/18 10:04 Transfer Patient (Change bed) [ADT] Routine 03/01/18 08:55 Phenol/Sodium Phenolate [Phenaseptic Liquid] 1 ml PO Q1H PRN - Plan Plan:: ASSESSMENT AND PLAN COMPLICATED SIGMOID DIVERTICULITIS - s/p exploratory laparotomy with left-sided colon resection and colostomy formation. Pain has been well-controlled overnight. Vital signs have been stable. -Fentanyl [employer] for pain control -Continue current antibiotic therapy with metronidazole and ciprofloxacin -Continue IV fluids with reduced rate -Follow-up culture results -Surgical follow-up per Dr. Arroyo -Ostomy teaching MAINTENANCE ISSUES -DVT prophylaxis; SCUDs -GI prophylaxis; PPI -Ruiz catheter; not indicated -Nutrition; nothing by mouth DISPOSITION - anticipate discharge to home after the hospital stay. Dion Hester M.D.
[2018-03-01] MEDS: fentaNYL/Normal Saline 600 MCG/30 ML PCA Vial IV PRN (10:57)
[2018-03-01] MEDS ORDERED: Sodium Chloride 0.9% 500 ML IV ONE (19:52)
--- NOTE | 2018-03-01 20:04 | PCM.SN ---
- Free Text/Narrative Note: time; 1954 , call from 2 [facility]; concerns of sepsis risk and blood pressure is lower than normal. recent gall bladder surgery O: vital signs stable, 37.4-92-14 blood pressure 112/66 A; stable P: give IV fluids NS 500ml fluid bolus. continue to monitor closely.
[2018-03-02] MEDS: metroNIDAZOLE/Normal Saline 500 MG in Premix Bag 1 BAG IV SCH ×3 (00:44→16:57)
[2018-03-02] MEDS: Ciprofloxacin in D5W 400 MG in Premix Bag 1 BAG IV SCH ×4 (02:18→13:55)
[2018-03-02] MEDS: Ondansetron 4 MG/2 ML SDV IV PRN ×2 (03:20→20:45)
[2018-03-02] MEDS: Pantoprazole 40 MG Vial IVPUSH SCH (06:05)
[2018-03-02] MEDS ORDERED: Bupivacaine 0.5% 50 ML MDV ONE (06:43)
[2018-03-02] MEDS ORDERED: Lidocaine 1% with EPINEPHrine 1:100,000 50 ML MDV ONE (06:43)
[2018-03-02] MEDS ORDERED: Propofol 200 MG/20 ML SDV ONE (07:35)
[2018-03-02] MEDS ORDERED: fentaNYL 100 MCG/2 ML SDV ONE (07:35)
[2018-03-02] MEDS ORDERED: Midazolam 1 MG/ML 2 ML SDV ONE (07:35)
--- NOTE | 2018-03-02 08:39 | OR ---
DATE OF PROCEDURE: 03/02/2018 PREOPERATIVE DIAGNOSIS: Open abdominal incision, status post treatment of perforated sigmoid diverticulitis, Hinchey III. POSTOPERATIVE DIAGNOSIS: Open abdominal incision, status post treatment of perforated sigmoid diverticulitis, Hinchey III. PROCEDURE: Delayed primary closure. SURGEON: Nitin Arroyo MD. ANESTHESIA: IV anesthesia with monitored anesthesia care. INDICATION: This 62-year-old white female was taken to the operating room three days ago for Hinchey III perforated sigmoid diverticulitis. This was treated with excision of her sigmoid colon, a left colostomy, and Olivia pouch formation. We also had to reimplant her ureter in the bladder. Her incision was left open for delayed primary closure. She is taken to the operating room today for the delayed primary closure. I counseled her for this, including risks and alternatives, and she gave her informed consent to proceed. DESCRIPTION OF PROCEDURE: After adequate IV anesthesia was obtained, the patient's abdomen was prepped and draped in the usual sterile fashion. The incision looked quite good. It was copiously irrigated with saline and then closed with skin philip. A sterile dressing was applied. She tolerated the procedure well and was brought to the recovery room in a fair condition. Nitin Arroyo MD /[id number] MTDD
[2018-03-02] MEDS: Enoxaparin 40 MG/0.4 ML Syringe SUBCUT SCH (10:05)
[2018-03-02] MEDS: 1: AA 5%/Calcium/D15W/Lytes 1,000 ML with MVI, Adult with Vitamin K 10 ML, Chromium/Copp IV SCH ×3 (15:29)
[2018-03-02] MEDS: fentaNYL/Normal Saline 600 MCG/30 ML PCA Vial IV PRN (17:49)
[2018-03-03] MEDS: metroNIDAZOLE/Normal Saline 500 MG in Premix Bag 1 BAG IV SCH ×3 (01:24→17:19)
[2018-03-03] MEDS: LORazepam 2 MG/ML SDV IVPUSH PRN (01:24)
[2018-03-03] MEDS: Ciprofloxacin in D5W 400 MG in Premix Bag 1 BAG IV SCH ×4 (03:21→14:37)
[2018-03-03] MEDS: 1: AA 5%/Calcium/D15W/Lytes 1,000 ML with MVI, Adult with Vitamin K 10 ML, Chromium/Copp IV SCH ×6 (03:26→16:06)
[2018-03-03] MEDS: Ondansetron 4 MG/2 ML SDV IV PRN (03:59)
[2018-03-03] MEDS: Pantoprazole 40 MG Vial IVPUSH SCH (05:43)
[2018-03-03] MEDS ORDERED: Scopolamine 1.5 MG Transdermal Patch TRDERM PRN (06:30)
--- NOTE | 2018-03-03 06:37 | PCM.SURGPN ---
- General Info Date of Service: 03/03/18 Date of Surgery/Procedure: 02/27/18 POD#: 4 Post-Op Diagnosis: Hinchey 3 perforated sigmoid diverticulitis. Functional Status: Reports: Pain Controlled, Ambulating, Urinating (Ruiz), New Symptoms (Feels bloated but does not appear to be. ), Incentive Spirometry - Review of Systems General: Reports: No Symptoms HEENT: Reports: No Symptoms Pulmonary: Reports: No Symptoms Cardiovascular: Reports: No Symptoms Gastrointestinal: Reports: Nausea Genitourinary: Reports: No Symptoms Musculoskeletal: Reports: Leg Pain (Sciatica ) Skin: Reports: No Symptoms Neurological: Reports: Confusion Psychiatric: Reports: Hallucinations ([place] voices, thought people were around. ) - Patient Data Vitals - Most Recent: Last Vital Signs Temp 96.3 F 03/03/18 03:22 Pulse 87 03/03/18 03:22 Resp 16 03/03/18 03:22 BP 139/72 03/03/18 03:22 Pulse Ox 96 03/03/18 03:22 Weight - Most Recent: 201 lb 3.2 oz I&O - Last 24 Hours: Intake & Output 03/02/18 03/02/18 03/03/18 14:59 22:59 06:59 Intake Total 50 962 1324 Output Total 2745 1220 Balance 50 -1783 104 Lab Results Last 24 Hrs: Laboratory Results - last 24 hr 02/27/18 03/03/18 03/03/18 Range/Units 13:55 04:50 04:50 WBC 11.8 H (4.5-11.0) K/uL RBC 3.85 (3.30-5.50) M/uL Hgb 10.9 L (12.0-15.0) g/dL Hct 34.7 L (36.0-48.0) % MCV 90 (80-98) fL MCH 28 (27-31) pg MCHC 31 L (32-36) % Plt Count 258 (150-400) K/uL Sodium 136 L (140-148) mmol/L Potassium 3.6 (3.6-5.2) mmol/L Chloride 100 (100-108) mmol/L Carbon Dioxide 30 (21-32) mmol/L Anion Gap 9.6 (5.0-14.0) mmol/L BUN 16 D (7-18) mg/dL Creatinine 0.9 (0.6-1.0) mg/dL Est Cr Clr Drug Dosing 55.97 mL/min Estimated GFR (MDRD) > 60 (>60) Glucose 161 H (74-106) mg/dL Calcium 8.2 L (8.5-10.1) mg/dL Crossmatch See Detail Shun Results Last 24 Hrs: Microbiology 02/27/18 15:49 Gram Stain - Final Gallbladder Wound Culture - Preliminary 02/27/18 15:49 Anaerobic Culture - Final Peritoneal Fluid NO GROWTH AFTER 3 DAYS Med Orders - Current: Current Medications Benzocaine/Menthol (Cepacol Sore Throat) 1 lozenge MUCMEM Q1H PRN PRN Reason: Sore Throat Last Admin: 02/28/18 09:30 Dose: 1 jamie Enoxaparin Sodium (Lovenox) 40 mg SUBCUT DAILY [facility] Last Admin: 03/02/18 10:05 Dose: 40 mg Fentanyl Citrate (Fentanyl In Ns 20 Mcg/Ml 30 Ml Single Stroke Preformer) 0 mcg IV ASDIRECTED PRN; Protocol PRN Reason: Pain Last Admin: 03/02/18 17:49 Dose: 600 mcg Ciprofloxacin/Dextrose 400 mg/ (Premix) 200 mls @ 200 mls/hr IV Q12H [facility] Last Admin: 03/03/18 03:21 Dose: 200 mls/hr Metronidazole 500 mg/ Premix 100 mls @ 100 mls/hr IV Q8H [facility] Last Admin: 03/03/18 01:24 Dose: 100 mls/hr Potassium Chloride/Dextrose/Sod Cl (D5 1/2 Ns W/ 20 Meq/L Kcl) 1,000 mls @ 0 mls/hr IV ASDIRECTED [facility] Last Admin: 03/01/18 19:15 Dose: 75 mls/hr Multivitamins/Minerals 10 ml/Chromium/Copper/Manganese/Seleni/Zn 1 ml/ Amino Ac/ Electrol/Dextrose/Calcium 1,011 mls @ 80 mls/hr IV .BY DURATION [facility] Last Admin: 03/02/18 15:29 Dose: 80 mls/hr Amino Ac/Electrol/Dextrose/Calcium (Clinimix E 15) 1,000 mls @ 80 mls/hr IV .BY DURATION [facility] Last Admin: 03/03/18 03:26 Dose: 80 mls/hr Lorazepam (Ativan) 1 mg IVPUSH Q4H PRN PRN Reason: Anxiety Last Admin: 03/03/18 01:24 Dose: 1 mg Naloxone HCl (Narcan) 0.4 mg IVPUSH Q2M PRN PRN Reason: Respiratory Distress Ondansetron HCl (Zofran) 4 mg IV Q4H PRN PRN Reason: Nausea/Vomiting Last Admin: 03/03/18 03:59 Dose: 4 mg Pantoprazole Sodium (Protonix Iv) 40 mg IVPUSH Q24H [facility] Last Admin: 03/03/18 05:43 Dose: 40 mg Phenol (Phenaseptic Liquid) 0 ml PO Q1H PRN PRN Reason: Sore Throat Last Admin: 03/01/18 15:25 Dose: 2 sprays Scopolamine (Transderm-Scop) 1.5 mg TRDERM Q72H PRN PRN Reason: Nausea Sodium Chloride (Saline Flush) 10 ml FLUSH ASDIRECTED PRN PRN Reason: Keep Vein Open Last Admin: 02/25/18 22:39 Dose: 10 ml Discontinued Medications Bupivacaine HCl (Marcaine 0.5%) Confirm Administered Dose 50 ml .ROUTE .STK-MED ONE Stop: 03/02/18 06:44 Dexamethasone (Dexamethasone) Confirm Administered Dose 4 mg .ROUTE .STK-MED ONE Stop: 02/27/18 14:10 Diphenhydramine HCl (Benadryl) 50 mg IVPUSH ONETIME ONE Stop: 02/25/18 21:43 Last Admin: 02/25/18 21:44 Dose: 50 mg Diphenhydramine HCl (Benadryl) Confirm Administered Dose 50 mg .ROUTE .STK-MED ONE Stop: 02/25/18 21:44 Last Admin: 02/25/18 21:49 Dose: Not Given Enoxaparin Sodium (Lovenox) 40 mg SUBCUT Q24H [facility] Last Admin: 02/27/18 10:17 Dose: 40 mg Fentanyl (Sublimaze) Confirm Administered Dose 250 mcg .ROUTE .STK-MED ONE Stop: 02/27/18 14:10 Fentanyl (Sublimaze) Confirm Administered Dose 250 mcg .ROUTE .STK-MED ONE Stop: 02/27/18 14:54 Fentanyl (Sublimaze) Confirm Administered Dose 100 mcg .ROUTE .STK-MED ONE Stop: 03/02/18 07:36 Fentanyl Citrate (Fentanyl In Ns 20 Mcg/Ml 30 Ml Single Stroke Preformer) 0 mcg IV ASDIRECTED PRN; Protocol PRN Reason: Pain Last Admin: 02/26/18 12:51 Dose: 600 mcg Glycopyrrolate (Robinul) Confirm Administered Dose 1 mg .ROUTE .STK-MED ONE Stop: 02/27/18 14:10 Hydromorphone HCl (Dilaudid) 0.5 mg IVPUSH ONETIME ONE Stop: 02/25/18 21:14 Last Admin: 02/25/18 21:33 Dose: 0.5 mg Sodium Chloride (Normal Saline) 1,000 mls @ 999 mls/hr IV ASDIRECTED [facility] Last Admin: 02/25/18 21:28 Dose: 999 mls/hr Sodium Chloride (Normal Saline) 80 mls @ 3 mls/sec IV ASDIRECTED [facility] Last Admin: 02/25/18 22:39 Dose: 3 mls/sec Ciprofloxacin/Dextrose 400 mg/ (Premix) 200 mls @ 200 mls/hr IV ONETIME ONE Stop: 02/26/18 01:18 Last Admin: 02/26/18 02:19 Dose: 200 mls/hr Metronidazole 500 mg/ Premix 100 mls @ 100 mls/hr IV ONETIME ONE Stop: 02/26/18 01:18 Last Admin: 02/26/18 00:54 Dose: 100 mls/hr Sodium Chloride (Normal Saline) 1,000 mls @ 125 mls/hr IV ASDIRECTED [facility] Last Admin: 02/26/18 08:11 Dose: 125 mls/hr Sodium Chloride (Normal Saline) 1,000 mls @ 125 mls/hr IV ASDIRECTED [facility] Last Admin: 02/27/18 05:58 Dose: 125 mls/hr Ciprofloxacin/Dextrose 400 mg/ (Premix) 200 mls @ 200 mls/hr IV Q12H [facility] Last Admin: 02/26/18 06:13 Dose: Not Given Metronidazole 500 mg/ Premix 100 mls @ 100 mls/hr IV Q8H [facility] Last Admin: 02/26/18 06:14 Dose: Not Given Magnesium Sulfate 2 gm/ Premix 50 mls @ 25 mls/hr IV ONETIME ONE Stop: 02/27/18 10:59 Last Admin: 02/27/18 10:26 Dose: 25 mls/hr Sodium Chloride (Normal Saline) 81 mls @ 3.5 mls/sec IV ASDIRECTED [facility] Stop: 02/27/18 23:00 Last Admin: 02/27/18 12:09 Dose: 3.5 mls/sec Lactated Ringer's (Ringers, Lactated) Confirm Administered Dose 1,000 mls @ as directed .ROUTE .STK-MED ONE Stop: 02/27/18 15:22 Potassium Chloride/Dextrose/Sod Cl (D5 1/2 Ns W/ 20 Meq/L Kcl) 1,000 mls @ 150 mls/hr IV ASDIRECTED [facility] Last Admin: 02/28/18 00:15 Dose: 150 mls/hr Sodium Chloride (Normal Saline) 500 mls @ 500 mls/hr IV .BOLUS ONE Stop: 03/01/18 20:51 Last Admin: 03/01/18 20:35 Dose: 500 mls/hr Iopamidol (Isovue-300 (61%)) 132 ml IV . DIRECTED [facility] Last Admin: 02/25/18 22:39 Dose: 132 ml Iopamidol (Isovue-300 (61%)) 136 ml IV . DIRECTED PRN PRN Reason: RADIOLOGY EXAM Stop: 02/28/18 10:26 Last Admin: 02/27/18 12:08 Dose: 136 ml Lidocaine/Epinephrine (Xylocaine 1% With Epinephrine 1:100,000) Confirm Administered Dose 50 ml .ROUTE .STK-MED ONE Stop: 03/02/18 06:44 Lorazepam (Ativan) 2 mg IVPUSH Q4H PRN PRN Reason: Anxiety Last Admin: 02/27/18 01:16 Dose: 1 mg Lorazepam (Ativan) Confirm Administered Dose 2 mg .ROUTE .STK-MED ONE Stop: 02/27/18 01:14 Last Admin: 02/27/18 02:18 Dose: Not Given Magnesium Oxide (Magnesium Oxide) 400 mg PO BID [facility] Last Admin: 02/27/18 09:01 Dose: 400 mg Methylprednisolone Sodium Succinate (Solu-Medrol) 125 mg IVPUSH ONETIME ONE Stop: 02/25/18 21:43 Last Admin: 02/25/18 21:45 Dose: 125 mg Methylprednisolone Sodium Succinate (Solu-Medrol) Confirm Administered Dose 125 mg .ROUTE .STK-MED ONE Stop: 02/25/18 21:44 Last Admin: 02/25/18 21:49 Dose: Not Given Midazolam HCl (Versed 1 Mg/Ml) Confirm Administered Dose 2 mg .ROUTE .STK-MED ONE Stop: 03/02/18 07:36 Morphine Sulfate (Morphine) 1 mg IVPUSH Q1H PRN PRN Reason: Abdominal Pain Last Admin: 02/26/18 06:17 Dose: 1 mg Morphine Sulfate (Morphine) Confirm Administered Dose 2 mg .ROUTE .STK-MED ONE Stop: 02/26/18 06:16 Last Admin: 02/26/18 06:35 Dose: Not Given Naloxone HCl (Narcan) 0.1 mg IVPUSH Q2M PRN PRN Reason: Respiratory Distress Neostigmine Methylsulfate (Neostigmine) Confirm Administered Dose 5 mg .ROUTE .STK-MED ONE Stop: 02/27/18 14:10 Ondansetron HCl (Zofran) 4 mg IVPUSH ONETIME ONE Stop: 02/25/18 21:14 Last Admin: 02/25/18 21:30 Dose: 4 mg Ondansetron HCl (Zofran) Confirm Administered Dose 4 mg .ROUTE .STK-MED ONE Stop: 02/27/18 14:10 Pantoprazole Sodium (Protonix Iv) Confirm Administered Dose 40 mg .ROUTE .STK -MED ONE Stop: 02/27/18 06:20 Last Admin: 02/27/18 06:28 Dose: Not Given Propofol (Diprivan 20 Ml) Confirm Administered Dose 200 mg .ROUTE .STK-MED ONE Stop: 02/27/18 14:10 Propofol (Diprivan 20 Ml) Confirm Administered Dose 200 mg .ROUTE .STK-MED ONE Stop: 03/02/18 07:36 Rocuronium [place] (Zemuron) Confirm Administered Dose 50 mg .ROUTE .STK-MED ONE Stop: 02/27/18 14:10 - Exam Wound/Incisions: Healing Well, Dressing Dry and Intact, Other (No ostomy output yet. ) Quality Assessment: Supplemental Oxygen General: Alert, Oriented, Cooperative Lungs: Clear to Auscultation, Normal Respiratory Effort Cardiovascular: Regular Rate, Regular Rhythm GI/Abdominal Exam: Abnormal Bowel Sounds (Rare bowel sounds heard. ) Skin: Warm, Dry, Intact Psy/Mental Status: Alert, Normal Affect, Normal Mood - Problem List & Annotations (1) Acute diverticulitis of intestine SNOMED Code(s): 570491808 Code(s): K57.92 - DVTRCLI OF INTEST, PART UNSP, W/O PERF OR ABSCESS W/O BLEED Status: Acute Current Visit: Yes (2) Perforation bowel SNOMED Code(s): 12500905 Code(s): K63.1 - PERFORATION OF INTESTINE (NONTRAUMATIC) Status: Acute Current Visit: Yes - Problem List Review Problem List Initiated/Reviewed/Updated: Yes - My Orders Last 24 Hours: Active Orders 24 hr Category Date Time Status Communication Order [RC] ROUTINE Care 03/03/18 06:30 Active 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 [CONS] Routine Cons 03/02/18 11:54 Active BASIC METABOLIC PANEL,BMP [CHEM] DAILY Lab 03/04/18 05:11 Ordered BASIC METABOLIC PANEL,BMP [CHEM] DAILY Lab 03/05/18 05:11 Ordered BASIC METABOLIC PANEL,BMP [CHEM] DAILY Lab 03/06/18 05:11 Ordered BASIC METABOLIC PANEL,BMP [CHEM] DAILY Lab 03/07/18 05:11 Ordered CBC W/O DIFF,HEMOGRAM [HEME] DAILY Lab 03/04/18 05:11 Ordered CBC W/O DIFF,HEMOGRAM [HEME] DAILY Lab 03/05/18 05:11 Ordered CBC W/O DIFF,HEMOGRAM [HEME] DAILY Lab 03/06/18 05:11 Ordered CBC W/O DIFF,HEMOGRAM [HEME] DAILY Lab 03/07/18 05:11 Ordered ALT Order Med 03/02/18 15:00 Active Scopolamine [Transderm-Scop] Med 03/03/18 06:30 Ordered 1.5 mg TRDERM Q72H PRN Medication Orders Benzocaine/Menthol (Cepacol Sore Throat) 1 lozenge MUCMEM Q1H PRN PRN Reason: Sore Throat Last Admin: 02/28/18 09:30 Dose: 1 jamie Enoxaparin Sodium (Lovenox) 40 mg SUBCUT DAILY [facility] Last Admin: 03/02/18 10:05 Dose: 40 mg Admin: 03/01/18 08:29 Dose: 40 mg Fentanyl Citrate (Fentanyl In Ns 20 Mcg/Ml 30 Ml Single Stroke Preformer) 0 mcg IV ASDIRECTED PRN; Protocol PRN Reason: Pain Last Admin: 03/02/18 17:49 Dose: 600 mcg Admin: 03/01/18 10:57 Dose: 600 mcg Admin: 02/28/18 01:40 Dose: 600 mcg Ciprofloxacin/Dextrose 400 mg/ (Premix) 200 mls @ 200 mls/hr IV Q12H [facility] Last Admin: 03/03/18 03:21 Dose: 200 mls/hr Infusion: 03/02/18 14:55 Dose: 200 mls/hr Admin: 03/02/18 13:55 Dose: 200 mls/hr Infusion: 03/02/18 03:18 Dose: 200 mls/hr Admin: 03/02/18 02:18 Dose: 200 mls/hr Infusion: 03/01/18 16:25 Dose: 200 mls/hr Admin: 03/01/18 15:25 Dose: 200 mls/hr Infusion: 03/01/18 02:50 Dose: 200 mls/hr Admin: 03/01/18 01:50 Dose: 200 mls/hr Infusion: 02/28/18 14:43 Dose: 200 mls/hr Admin: 02/28/18 13:43 Dose: 200 mls/hr Infusion: 02/28/18 02:45 Dose: 200 mls/hr Admin: 02/28/18 01:45 Dose: 200 mls/hr Infusion: 02/27/18 14:39 Dose: 200 mls/hr Admin: 02/27/18 13:39 Dose: 200 mls/hr Infusion: 02/27/18 02:45 Dose: 200 mls/hr Admin: 02/27/18 01:45 Dose: 200 mls/hr Infusion: 02/26/18 15:29 Dose: 200 mls/hr Admin: 02/26/18 14:29 Dose: 200 mls/hr Metronidazole 500 mg/ Premix 100 mls @ 100 mls/hr IV Q8H [facility] Last Admin: 03/03/18 01:24 Dose: 100 mls/hr Infusion: 03/02/18 17:57 Dose: 100 mls/hr Admin: 03/02/18 16:57 Dose: 100 mls/hr Infusion: 03/02/18 11:05 Dose: 100 mls/hr Admin: 03/02/18 10:05 Dose: 100 mls/hr Infusion: 03/02/18 01:44 Dose: 100 mls/hr Admin: 03/02/18 00:44 Dose: 100 mls/hr Infusion: 03/01/18 19:00 Dose: 100 mls/hr Admin: 03/01/18 18:00 Dose: 100 mls/hr Infusion: 03/01/18 09:29 Dose: 100 mls/hr Admin: 03/01/18 08:29 Dose: 100 mls/hr Infusion: 03/01/18 01:33 Dose: 100 mls/hr Admin: 03/01/18 00:33 Dose: 100 mls/hr Infusion: 02/28/18 17:39 Dose: 100 mls/hr Admin: 02/28/18 16:39 Dose: 100 mls/hr Infusion: 02/28/18 09:13 Dose: 100 mls/hr Admin: 02/28/18 08:13 Dose: 100 mls/hr Infusion: 02/28/18 01:49 Dose: 100 mls/hr Admin: 02/28/18 00:49 Dose: 100 mls/hr Admin: 02/27/18 18:43 Dose: Infusion: 02/27/18 15:25 Dose: 100 mls/hr Admin: 02/27/18 14:25 Dose: 100 mls/hr Infusion: 02/27/18 09:48 Dose: 100 mls/hr Admin: 02/27/18 08:48 Dose: 100 mls/hr Infusion: 02/27/18 03:51 Dose: 100 mls/hr Admin: 02/27/18 02:51 Dose: 100 mls/hr Infusion: 02/26/18 21:06 Dose: 100 mls/hr Admin: 02/26/18 20:06 Dose: 100 mls/hr Infusion: 02/26/18 13:00 Dose: 100 mls/hr Admin: 02/26/18 12:00 Dose: 100 mls/hr Potassium Chloride/Dextrose/Sod Cl (D5 1/2 Ns W/ 20 Meq/L Kcl) 1,000 mls @ 0 mls/hr IV ASDIRECTED [facility] Last Admin: 03/01/18 19:15 Dose: 75 mls/hr Infusion: 03/01/18 13:29 Dose: 75 mls/hr Admin: 03/01/18 00:09 Dose: 75 mls/hr Infusion: 02/28/18 22:50 Dose: 75 mls/hr Admin: 02/28/18 09:30 Dose: 75 mls/hr Multivitamins/Minerals 10 ml/Chromium/Copper/Manganese/Seleni/Zn 1 ml/ Amino Ac/ Electrol/Dextrose/Calcium 1,011 mls @ 80 mls/hr IV .BY DURATION [facility] Last Admin: 03/02/18 15:29 Dose: 80 mls/hr Amino Ac/Electrol/Dextrose/Calcium (Clinimix E 01/25) 1,000 mls @ 80 mls/hr IV .BY DURATION [facility] Last Admin: 03/03/18 03:26 Dose: 80 mls/hr Lorazepam (Ativan) 1 mg IVPUSH Q4H PRN PRN Reason: Anxiety Last Admin: 03/03/18 01:24 Dose: 1 mg Naloxone HCl (Narcan) 0.4 mg IVPUSH Q2M PRN PRN Reason: Respiratory Distress Ondansetron HCl (Zofran) 4 mg IV Q4H PRN PRN Reason: Nausea/Vomiting Last Admin: 03/03/18 03:59 Dose: 4 mg Admin: 03/02/18 20:45 Dose: 4 mg Admin: 03/02/18 03:20 Dose: 4 mg Admin: 03/01/18 19:17 Dose: 4 mg Admin: 03/01/18 03:54 Dose: 4 mg Admin: 02/27/18 11:32 Dose: 4 mg Admin: 02/26/18 08:34 Dose: 4 mg Pantoprazole Sodium (Protonix Iv) 40 mg IVPUSH Q24H [facility] Last Admin: 03/03/18 05:43 Dose: 40 mg Admin: 03/02/18 06:05 Dose: 40 mg Admin: 03/01/18 05:48 Dose: 40 mg Admin: 02/28/18 05:54 Dose: 40 mg Admin: 02/27/18 06:28 Dose: 40 mg Phenol (Phenaseptic Liquid) 0 ml PO Q1H PRN PRN Reason: Sore Throat Last Admin: 03/01/18 15:25 Dose: 2 sprays Scopolamine (Transderm-Scop) 1.5 mg TRDERM Q72H PRN PRN Reason: Nausea Sodium Chloride (Saline Flush) 10 ml FLUSH ASDIRECTED PRN PRN Reason: Keep Vein Open Last Admin: 02/25/18 22:39 Dose: 10 ml Admin: 02/25/18 21:49 Dose: 10 ml Admin: 02/25/18 21:30 Dose: 10 ml - Assessment Assessment (Free Text/Narrative):: She needs nutrition and TPN has been started. Waiting for GI recovery. WBC is going toward normal and afebrile. - Plan Plan (Free Text/Narrative):: Continue TPN. Dr. Levy to follow.
[2018-03-03] MEDS ORDERED: [UNRECOGNIZED DRUG - REMARK] TOP PRN (06:41)
[2018-03-03] MEDS: Enoxaparin 40 MG/0.4 ML Syringe SUBCUT SCH (09:41)
[2018-03-03] MEDS: [UNRECOGNIZED DRUG - REMARK] TOP SCH (10:14)
[2018-03-03] MEDS: D5 1/2 NS w/ 20 mEq/L KCl 1,000 ML IV SCH (23:22)
[2018-03-04] MEDS: metroNIDAZOLE/Normal Saline 500 MG in Premix Bag 1 BAG IV SCH ×3 (01:16→17:11)
[2018-03-04] MEDS: Ciprofloxacin in D5W 400 MG in Premix Bag 1 BAG IV SCH ×4 (02:52→14:15)
[2018-03-04] MEDS: 1: AA 5%/Calcium/D15W/Lytes 1,000 ML with MVI, Adult with Vitamin K 10 ML, Chromium/Copp IV SCH ×6 (04:54→17:11)
[2018-03-04] MEDS: Pantoprazole 40 MG Vial IVPUSH SCH (05:18)
[2018-03-04] MEDS: LORazepam 2 MG/ML SDV IVPUSH PRN ×2 (06:08→11:59)
[2018-03-04] MEDS: Enoxaparin 40 MG/0.4 ML Syringe SUBCUT SCH (08:57)
[2018-03-04] MEDS: [UNRECOGNIZED DRUG - REMARK] TOP SCH (08:59)
[2018-03-04] MEDS: fentaNYL/Normal Saline 600 MCG/30 ML PCA Vial IV PRN (11:14)
[2018-03-04] MEDS ORDERED: Central Total Parenteral Nutrition Bag IV SCH (12:00)
--- NOTE | 2018-03-04 16:14 | PN ---
DATE OF SERVICE: 03/04/2018 SUBJECTIVE: The patient is doing very well. The patient is passing large amount of gas via ostomy. No nausea, vomiting, shortness of breath, or chest pain. OBJECTIVE: VITAL SIGNS: Stable. CARDIOVASCULAR: Regular rhythm and rate. RESPIRATORY: Lungs are clear to auscultation bilaterally. ABDOMEN: Nontender, nondistended. No rebound or guarding. ASSESSMENT: Status post ostomy. PLAN: The patient will have her NG tube today. We will start on a diet. Continue to work on activity via physical therapy consult. Anticipate discharge if this trend continues the next 72 hours. Gamaleil Levy MD /[id number]
[2018-03-04] MEDS ORDERED: Dimethicone 20%/Zinc Oxide 25% 56 GM Spray Bottle TOP PRN (20:20)
[2018-03-05] MEDS: metroNIDAZOLE/Normal Saline 500 MG in Premix Bag 1 BAG IV SCH ×3 (00:58→17:00)
[2018-03-05] MEDS: Ciprofloxacin in D5W 400 MG in Premix Bag 1 BAG IV SCH ×4 (02:12→14:19)
[2018-03-05] MEDS: Ondansetron 4 MG/2 ML SDV IV PRN (02:54)
[2018-03-05] MEDS: Pantoprazole 40 MG Vial IVPUSH SCH (05:15)
[2018-03-05] MEDS: Enoxaparin 40 MG/0.4 ML Syringe SUBCUT SCH (08:39)
[2018-03-05] MEDS: [UNRECOGNIZED DRUG - REMARK] TOP SCH (08:40)
[2018-03-05] MEDS ORDERED: fentaNYL 100 MCG/2 ML SDV IVPUSH PRN (09:18)
[2018-03-05] MEDS ORDERED: Metoclopramide 10 MG/2 ML SDV IVPUSH PRN (09:18)
[2018-03-05] MEDS ORDERED: Sodium Chloride 0.9% 10 ML Syringe IV PRN (09:19)
[2018-03-05] MEDS ORDERED: Sodium Chloride 0.9% 10 ML Syringe FLUSH PRN (09:39)
[2018-03-05] MEDS: 1: AA 5%/Calcium/D15W/Lytes 1,000 ML with MVI, Adult with Vitamin K 10 ML, Chromium/Copp IV SCH ×3 (09:45)
--- NOTE | 2018-03-05 10:21 | PN ---
DATE OF SERVICE: 03/05/2018 SUBJECTIVE: The patient continues to do better today. Pain is well controlled. Ostomy continues putting out gas and a small amount of liquid. OBJECTIVE: VITAL SIGNS: Stable. CARDIOVASCULAR: Regular rhythm and rate. RESPIRATORY: Lungs clear to auscultation bilaterally. ABDOMEN: Bowel sounds are positive. Incision is healing well. No signs of cellulitis or infection. LABORATORY RESULTS: Show elevated white blood cell count again. ASSESSMENT: Status post ostomy. PLAN: The patient is doing quite well except for elevated white blood cell count. Her UA and chest x-ray were negative. We will remove her PICC line today and recheck a white blood cell count in the morning, although she is asymptomatic with this. If the white blood cell count remains elevated, we will CT scan her in the a.m. Gamaliel Levy MD /[id number]
[2018-03-05] MEDS ORDERED: Acetaminophen/oxyCODONE 325-5 MG Tab PO PRN (10:40)
[2018-03-05] MEDS ORDERED: Acetaminophen/HYDROcodone 325-5 MG Tab PO PRN (15:44)
[2018-03-05] MEDS: Ibuprofen 600 MG Tab PO PRN (17:01)
[2018-03-05] MEDS ORDERED: LORazepam 2 MG/ML SDV IVPUSH PRN (20:33)
[2018-03-05] MEDS: LORazepam 0.5 MG Tab PO PRN (20:45)
[2018-03-06] MEDS: metroNIDAZOLE/Normal Saline 500 MG in Premix Bag 1 BAG IV SCH ×2 (00:29→08:22)
[2018-03-06] MEDS: Ciprofloxacin in D5W 400 MG in Premix Bag 1 BAG IV SCH ×4 (01:15→14:18)
[2018-03-06] MEDS: Pantoprazole 40 MG Vial IVPUSH SCH (05:15)
[2018-03-06] MEDS: Enoxaparin 40 MG/0.4 ML Syringe SUBCUT SCH (08:22)
[2018-03-06] MEDS: [UNRECOGNIZED DRUG - REMARK] TOP SCH (08:22)
[2018-03-06] MEDS: Scopolamine 1.5 MG Transdermal Patch TRDERM SCH (08:23)
[2018-03-06] MEDS ORDERED: Docusate Sodium 100 MG Cap PO PRN (08:47)
[2018-03-06] MEDS: Ibuprofen 600 MG Tab PO PRN ×2 (08:52→19:02)
[2018-03-06] MEDS: Docusate Sodium 100 MG Cap PO SCH ×2 (09:23→22:41)
[2018-03-06] MEDS: Magnesium Hydroxide 400 MG/5 ML Susp 30 ML Cup PO SCH ×2 (09:23→22:42)
--- NOTE | 2018-03-06 09:40 | PN ---
DATE OF SERVICE: 03/06/2018 SUBJECTIVE: The patient continues to improve. Pain is well controlled. No nausea, vomiting, shortness of breath, or chest pain. OBJECTIVE: VITAL SIGNS: Stable. CARDIOVASCULAR: Regular rhythm and rate. RESPIRATORY: Lungs clear to auscultation bilaterally. Ostomy is having gas output. LABORATORY DATA: White blood cell count has decreased to 16,000. ASSESSMENT: Status post ostomy. PLAN: Continue IV antibiotics. Recheck white blood cell count in the morning. We will also add bowel stimulation, which includes Colace and milk of magnesia today. Gamaliel Levy MD /[id number]
[2018-03-06] MEDS: metroNIDAZOLE 250 MG Tab PO SCH (16:42)
[2018-03-06] MEDS ORDERED: Ciprofloxacin 500 MG Tab PO SCH (23:00)
[2018-03-07] MEDS: LORazepam 0.5 MG Tab PO PRN ×2 (00:43→19:15)
[2018-03-07] MEDS: Pantoprazole 40 MG Tab.CR PO SCH (08:39)
[2018-03-07] MEDS: metroNIDAZOLE 250 MG Tab PO SCH (08:39)
[2018-03-07] MEDS: Docusate Sodium 100 MG Cap PO SCH ×2 (08:40→21:51)
[2018-03-07] MEDS: Enoxaparin 40 MG/0.4 ML Syringe SUBCUT SCH (08:40)
[2018-03-07] MEDS: Magnesium Hydroxide 400 MG/5 ML Susp 30 ML Cup PO SCH ×2 (08:40→21:51)
[2018-03-07] MEDS: [UNRECOGNIZED DRUG - REMARK] TOP SCH (08:40)
--- NOTE | 2018-03-07 08:45 | CR ---
CHEST: 2 view CLINICAL HISTORY:Elevated white count COMPARISON:2007 FINDINGS: Heart and pulmonary vascularity are normal. The patient has a PICC line from the right upp er extremity. The tip is in the right atrium. No infiltrate effusion or pneumothorax is seen. There is some patchy atelectasis in the right middle lobe IMPRESSION: Right upper extremity PICC line described above Patchy right middle lobe atelectasis
--- NOTE | 2018-03-07 11:45 | PCM.SURGPN ---
- General Info Date of Service: 03/07/18 Date of Surgery/Procedure: 02/27/18 POD#: 8 Post-Op Diagnosis: Perforated sigmoid diverticulitis Functional Status: Reports: Pain Controlled - Review of Systems General: Reports: Appetite (Is nauseated after taking oral pain medication. ) HEENT: Reports: No Symptoms Pulmonary: Reports: No Symptoms Cardiovascular: Reports: No Symptoms Gastrointestinal: Reports: Vomiting (Last night after taking oral antibiotic. ) Genitourinary: Reports: No Symptoms Musculoskeletal: Reports: No Symptoms Skin: Reports: No Symptoms Neurological: Reports: No Symptoms Psychiatric: Reports: No Symptoms - Patient Data Vitals - Most Recent: Last Vital Signs Temp 97.7 F 03/07/18 11:00 Pulse 88 03/07/18 11:00 Resp 18 03/07/18 11:00 BP 134/78 03/07/18 11:00 Pulse Ox 97 03/07/18 11:00 Weight - Most Recent: 194 lb 9.6 oz I&O - Last 24 Hours: Intake & Output 03/06/18 03/07/18 03/07/18 22:59 06:59 14:59 Intake Total 800 200 440 Output Total 1255 1100 125 Balance -455 -900 315 Lab Results Last 24 Hrs: Laboratory Results - last 24 hr 03/07/18 03/07/18 Range/Units 05:17 05:17 WBC 13.1 H (4.5-11.0) K/uL RBC 3.73 (3.30-5.50) M/uL Hgb 10.7 L (12.0-15.0) g/dL Hct 33.2 L (36.0-48.0) % MCV 89 (80-98) fL MCH 29 (27-31) pg MCHC 32 (32-36) % Plt Count 327 (150-400) K/uL Sodium 137 L (140-148) mmol/L Potassium 4.1 (3.6-5.2) mmol/L Chloride 103 (100-108) mmol/L Carbon Dioxide 29 (21-32) mmol/L Anion Gap 9.1 (5.0-14.0) mmol/L BUN 13 (7-18) mg/dL Creatinine 0.9 (0.6-1.0) mg/dL Est Cr Clr Drug Dosing 55.97 mL/min Estimated GFR (MDRD) > 60 (>60) Glucose 104 (74-106) mg/dL Calcium 8.1 L (8.5-10.1) mg/dL Shun Results Last 24 Hrs: Microbiology 03/05/18 11:58 Catheter Tip Culture - Preliminary Catheter Tip Other - Periph Insert Central Cath Med Orders - Current: Current Medications Acetaminophen (Tylenol) 325 - 650 mg PO Q4H PRN PRN Reason: Pain (moderate 4-6) Hydrocodone Bitart/Acetaminophen ([place] 325-5 Mg) 1 - 2 tab PO Q4H PRN PRN Reason: Pain (severe 7-10) Last Admin: 03/07/18 07:27 Dose: 1 tab Benzocaine/Menthol (Cepacol Sore Throat) 1 lozenge MUCMEM Q1H PRN PRN Reason: Sore Throat Last Admin: 02/28/18 09:30 Dose: 1 jamie Ciprofloxacin (Ciprofloxacin Hcl) 500 mg PO BID@1100,2300 [facility] Last Admin: 03/06/18 22:41 Dose: 500 mg Dimethicone/Zinc Oxide (Rash Relief-Zinc Oxide Cowan) 0 gm TOP ASDIRECTED PRN PRN Reason: Rash Last Admin: 03/04/18 21:03 Dose: 1 applic Docusate Sodium (Colace) 100 mg PO BID [facility] Last Admin: 03/07/18 08:40 Dose: 100 mg Enoxaparin Sodium (Lovenox) 40 mg SUBCUT DAILY [facility] Last Admin: 03/07/18 08:40 Dose: 40 mg Ibuprofen (Motrin) 600 mg PO Q6H PRN PRN Reason: Pain (moderate 4-6) Last Admin: 03/06/18 19:02 Dose: 600 mg Lorazepam (Ativan) 0.5 - 1 mg PO Q4H PRN PRN Reason: Anxiety Last Admin: 03/07/18 00:43 Dose: 0.5 mg Magnesium Hydroxide (Milk Of Magnesia) 30 ml PO BID [facility] Last Admin: 03/07/18 08:40 Dose: 30 ml Metronidazole (Metronidazole) 500 mg PO BIDMEALS [facility] Last Admin: 03/07/18 08:39 Dose: 500 mg Check Patch Daily (Trans Derm Scop) 1 each TOP DAILY [facility] Last Admin: 03/07/18 08:40 Dose: Not Given Pantoprazole Sodium (Protonix) 40 mg PO ACBREAKFAST [facility] Last Admin: 03/07/18 08:39 Dose: 40 mg Phenol (Phenaseptic Liquid) 0 ml PO Q1H PRN PRN Reason: Sore Throat Last Admin: 03/01/18 15:25 Dose: 2 sprays Scopolamine (Transderm-Scop) 1.5 mg TRDERM Q72H [facility] Last Admin: 03/06/18 08:23 Dose: 1.5 mg Discontinued Medications Bupivacaine HCl (Marcaine 0.5%) Confirm Administered Dose 50 ml .ROUTE .STK-MED ONE Stop: 03/02/18 06:44 Dexamethasone (Dexamethasone) Confirm Administered Dose 4 mg .ROUTE .STK-MED ONE Stop: 02/27/18 14:10 Diphenhydramine HCl (Benadryl) 50 mg IVPUSH ONETIME ONE Stop: 02/25/18 21:43 Last Admin: 02/25/18 21:44 Dose: 50 mg Diphenhydramine HCl (Benadryl) Confirm Administered Dose 50 mg .ROUTE .STK-MED ONE Stop: 02/25/18 21:44 Last Admin: 02/25/18 21:49 Dose: Not Given Docusate Sodium (Colace) 100 mg PO BID PRN PRN Reason: Constipation Enoxaparin Sodium (Lovenox) 40 mg SUBCUT Q24H [facility] Last Admin: 02/27/18 10:17 Dose: 40 mg Fentanyl (Sublimaze) Confirm Administered Dose 250 mcg .ROUTE .STK-MED ONE Stop: 02/27/18 14:10 Fentanyl (Sublimaze) Confirm Administered Dose 250 mcg .ROUTE .STK-MED ONE Stop: 02/27/18 14:54 Fentanyl (Sublimaze) Confirm Administered Dose 100 mcg .ROUTE .STK-MED ONE Stop: 03/02/18 07:36 Fentanyl (Sublimaze) 10 - 25 mcg IVPUSH Q2H PRN PRN Reason: SEVERE PAIN Fentanyl Citrate (Fentanyl In Ns 20 Mcg/Ml 30 Ml Billboard Installer) 0 mcg IV ASDIRECTED PRN; Protocol PRN Reason: Pain Last Admin: 02/26/18 12:51 Dose: 600 mcg Fentanyl Citrate (Fentanyl In Ns 20 Mcg/Ml 30 Ml Billboard Installer) 0 mcg IV ASDIRECTED PRN; Protocol PRN Reason: Pain Last Admin: 03/04/18 11:14 Dose: 600 mcg Glycopyrrolate (Robinul) Confirm Administered Dose 1 mg .ROUTE .STK-MED ONE Stop: 02/27/18 14:10 Hydromorphone HCl (Dilaudid) 0.5 mg IVPUSH ONETIME ONE Stop: 02/25/18 21:14 Last Admin: 02/25/18 21:33 Dose: 0.5 mg Sodium Chloride (Normal Saline) 1,000 mls @ 999 mls/hr IV ASDIRECTED [facility] Last Admin: 02/25/18 21:28 Dose: 999 mls/hr Sodium Chloride (Normal Saline) 80 mls @ 3 mls/sec IV ASDIRECTED [facility] Last Admin: 02/25/18 22:39 Dose: 3 mls/sec Ciprofloxacin/Dextrose 400 mg/ (Premix) 200 mls @ 200 mls/hr IV ONETIME ONE Stop: 02/26/18 01:18 Last Admin: 02/26/18 02:19 Dose: 200 mls/hr Metronidazole 500 mg/ Premix 100 mls @ 100 mls/hr IV ONETIME ONE Stop: 02/26/18 01:18 Last Admin: 02/26/18 00:54 Dose: 100 mls/hr Sodium Chloride (Normal Saline) 1,000 mls @ 125 mls/hr IV ASDIRECTED [facility] Last Admin: 02/26/18 08:11 Dose: 125 mls/hr Sodium Chloride (Normal Saline) 1,000 mls @ 125 mls/hr IV ASDIRECTED [facility] Last Admin: 02/27/18 05:58 Dose: 125 mls/hr Ciprofloxacin/Dextrose 400 mg/ (Premix) 200 mls @ 200 mls/hr IV Q12H [facility] Last Admin: 02/26/18 06:13 Dose: Not Given Metronidazole 500 mg/ Premix 100 mls @ 100 mls/hr IV Q8H [facility] Last Admin: 02/26/18 06:14 Dose: Not Given Ciprofloxacin/Dextrose 400 mg/ (Premix) 200 mls @ 200 mls/hr IV Q12H [facility] Last Admin: 03/06/18 14:18 Dose: 200 mls/hr Metronidazole 500 mg/ Premix 100 mls @ 100 mls/hr IV Q8H [facility] Last Admin: 03/06/18 08:22 Dose: 100 mls/hr Magnesium Sulfate 2 gm/ Premix 50 mls @ 25 mls/hr IV ONETIME ONE Stop: 02/27/18 10:59 Last Admin: 02/27/18 10:26 Dose: 25 mls/hr Sodium Chloride (Normal Saline) 81 mls @ 3.5 mls/sec IV ASDIRECTED [facility] Stop: 02/27/18 23:00 Last Admin: 02/27/18 12:09 Dose: 3.5 mls/sec Lactated Ringer's (Ringers, Lactated) Confirm Administered Dose 1,000 mls @ as directed .ROUTE .STK-MED ONE Stop: 02/27/18 15:22 Potassium Chloride/Dextrose/Sod Cl (D5 1/2 Ns W/ 20 Meq/L Kcl) 1,000 mls @ 150 mls/hr IV ASDIRECTED [facility] Last Admin: 02/28/18 00:15 Dose: 150 mls/hr Potassium Chloride/Dextrose/Sod Cl (D5 1/2 Ns W/ 20 Meq/L Kcl) 1,000 mls @ 0 mls/hr IV ASDIRECTED [facility] Last Admin: 03/03/18 23:22 Dose: 75 mls/hr Sodium Chloride (Normal Saline) 500 mls @ 500 mls/hr IV .BOLUS ONE Stop: 03/01/18 20:51 Last Admin: 03/01/18 20:35 Dose: 500 mls/hr Multivitamins/Minerals 10 ml/Chromium/Copper/Manganese/Seleni/Zn 1 ml/ Amino Ac/ Electrol/Dextrose/Calcium 1,011 mls @ 80 mls/hr IV .BY DURATION [facility] Last Admin: 03/04/18 17:11 Dose: 80 mls/hr Amino Ac/Electrol/Dextrose/Calcium (Clinimix E 5/15) 1,000 mls @ 80 mls/hr IV .BY DURATION [facility] Last Admin: 03/05/18 09:45 Dose: Not Given Iopamidol (Isovue-300 (61%)) 132 ml IV . DIRECTED [facility] Last Admin: 02/25/18 22:39 Dose: 132 ml Iopamidol (Isovue-300 (61%)) 136 ml IV . DIRECTED PRN PRN Reason: RADIOLOGY EXAM Stop: 02/28/18 10:26 Last Admin: 02/27/18 12:08 Dose: 136 ml Lidocaine/Epinephrine (Xylocaine 1% With Epinephrine 1:100,000) Confirm Administered Dose 50 ml .ROUTE .STK-MED ONE Stop: 03/02/18 06:44 Lorazepam (Ativan) 2 mg IVPUSH Q4H PRN PRN Reason: Anxiety Last Admin: 02/27/18 01:16 Dose: 1 mg Lorazepam (Ativan) Confirm Administered Dose 2 mg .ROUTE .STK-MED ONE Stop: 02/27/18 01:14 Last Admin: 02/27/18 02:18 Dose: Not Given Lorazepam (Ativan) 1 mg IVPUSH Q4H PRN PRN Reason: Anxiety Last Admin: 03/04/18 11:59 Dose: 1 mg Lorazepam (Ativan) 0.5 - 1 mg IVPUSH Q4H PRN PRN Reason: Anxiety Magnesium Oxide (Magnesium Oxide) 400 mg PO BID [facility] Last Admin: 02/27/18 09:01 Dose: 400 mg Methylprednisolone Sodium Succinate (Solu-Medrol) 125 mg IVPUSH ONETIME ONE Stop: 02/25/18 21:43 Last Admin: 02/25/18 21:45 Dose: 125 mg Methylprednisolone Sodium Succinate (Solu-Medrol) Confirm Administered Dose 125 mg .ROUTE .STK-MED ONE Stop: 02/25/18 21:44 Last Admin: 02/25/18 21:49 Dose: Not Given Metoclopramide HCl (Reglan) 10 mg IVPUSH Q6H PRN PRN Reason: Nausea Last Admin: 03/05/18 20:09 Dose: 10 mg Midazolam HCl (Versed 1 Mg/Ml) Confirm Administered Dose 2 mg .ROUTE .STK-MED ONE Stop: 03/02/18 07:36 Morphine Sulfate (Morphine) 1 mg IVPUSH Q1H PRN PRN Reason: Abdominal Pain Last Admin: 02/26/18 06:17 Dose: 1 mg Morphine Sulfate (Morphine) Confirm Administered Dose 2 mg .ROUTE .STK-MED ONE Stop: 02/26/18 06:16 Last Admin: 02/26/18 06:35 Dose: Not Given Naloxone HCl (Narcan) 0.1 mg IVPUSH Q2M PRN PRN Reason: Respiratory Distress Naloxone HCl (Narcan) 0.4 mg IVPUSH Q2M PRN PRN Reason: Respiratory Distress Neostigmine Methylsulfate (Neostigmine) Confirm Administered Dose 5 mg .ROUTE .STK-MED ONE Stop: 02/27/18 14:10 Check Patch Daily (Trans Derm Scop) 1 each TOP DAILY PRN PRN Reason: patch Non-Formulary Medication (Total Parenteral Nutrition, Central) 0 ml IV DAILY [facility] Stop: 03/04/18 22:00 Last Admin: 03/04/18 14:14 Dose: Not Given Ondansetron HCl (Zofran) 4 mg IVPUSH ONETIME ONE Stop: 02/25/18 21:14 Last Admin: 02/25/18 21:30 Dose: 4 mg Ondansetron HCl (Zofran) 4 mg IV Q4H PRN PRN Reason: Nausea/Vomiting Last Admin: 03/05/18 02:54 Dose: 4 mg Ondansetron HCl (Zofran) Confirm Administered Dose 4 mg .ROUTE .STK-MED ONE Stop: 02/27/18 14:10 Oxycodone/Acetaminophen (Percocet 325-5 Mg) 1 - 2 tab PO Q4H PRN PRN Reason: Pain (moderate 4-6) Last Admin: 03/05/18 11:06 Dose: 2 tab Pantoprazole Sodium (Protonix Iv) 40 mg IVPUSH Q24H [facility] Last Admin: 03/06/18 05:15 Dose: 40 mg Pantoprazole Sodium (Protonix Iv) Confirm Administered Dose 40 mg .ROUTE .STK -MED ONE Stop: 02/27/18 06:20 Last Admin: 02/27/18 06:28 Dose: Not Given Propofol (Diprivan 20 Ml) Confirm Administered Dose 200 mg .ROUTE .STK-MED ONE Stop: 02/27/18 14:10 Propofol (Diprivan 20 Ml) Confirm Administered Dose 200 mg .ROUTE .STK-MED ONE Stop: 03/02/18 07:36 Rocuronium Effie (Zemuron) Confirm Administered Dose 50 mg .ROUTE .STK-MED ONE Stop: 02/27/18 14:10 Scopolamine (Transderm-Scop) 1.5 mg TRDERM Q72H PRN PRN Reason: Nausea Last Admin: 03/03/18 16:07 Dose: 1.5 mg Sodium Chloride (Saline Flush) 10 ml FLUSH ASDIRECTED PRN PRN Reason: Keep Vein Open Last Admin: 02/25/18 22:39 Dose: 10 ml - Exam Wound/Incisions: Healing Well, Dressing Dry and Intact Quality Assessment: Urine Catheter, DVT Prophylaxis General: Alert, Oriented, Cooperative, No Acute Distress Lungs: Clear to Auscultation, Normal Respiratory Effort Cardiovascular: Regular Rate, Regular Rhythm GI/Abdominal Exam: Normal Bowel Sounds, Soft, Non-Tender, No Organomegaly, No Distention, Other (Ostomy functioning. ) Extremities: Normal Inspection Skin: Warm, Dry, Intact Neurological: No New Focal Deficit Psy/Mental Status: Alert, Normal Affect, Normal Mood - Problem List & Annotations (1) Acute diverticulitis of intestine SNOMED Code(s): 135597588 Code(s): K57.92 - DVTRCLI OF INTEST, PART UNSP, W/O PERF OR ABSCESS W/O BLEED Status: Acute Current Visit: Yes (2) Perforation bowel SNOMED Code(s): 31847093 Code(s): K63.1 - PERFORATION OF INTESTINE (NONTRAUMATIC) Status: Acute Current Visit: Yes - Problem List Review Problem List Initiated/Reviewed/Updated: Yes - My Orders Last 24 Hours: Active Orders 24 hr Category Date Time Status Communication Order [RC] ASDIRECTED Care 03/06/18 15:02 Active Advance Diet Instructions [DIET] Diet 03/06/18 Dinner Active Ciprofloxacin [Ciprofloxacin HCl] Med 03/06/18 23:00 Active 500 mg PO BID@1100,2300 Pantoprazole [ProTONIX] Med 03/07/18 07:30 Active 40 mg PO ACBREAKFAST metroNIDAZOLE Med 03/06/18 17:00 Active 500 mg PO BIDMEALS Peripheral IV Discontinue [OM.PC] Routine Oth 03/06/18 14:57 Ordered Medication Orders Acetaminophen (Tylenol) 325 - 650 mg PO Q4H PRN PRN Reason: Pain (moderate 4-6) Hydrocodone Bitart/Acetaminophen ([place] 325-5 Mg) 1 - 2 tab PO Q4H PRN PRN Reason: Pain (severe 7-10) Last Admin: 03/07/18 07:27 Dose: 1 tab Benzocaine/Menthol (Cepacol Sore Throat) 1 lozenge MUCMEM Q1H PRN PRN Reason: Sore Throat Last Admin: 02/28/18 09:30 Dose: 1 jamie Ciprofloxacin (Ciprofloxacin Hcl) 500 mg PO BID@1100,2300 [facility] Last Admin: 03/06/18 22:41 Dose: 500 mg Dimethicone/Zinc Oxide (Rash Relief-Zinc Oxide Cowan) 0 gm TOP ASDIRECTED PRN PRN Reason: Rash Last Admin: 03/04/18 21:03 Dose: 1 applic Docusate Sodium (Colace) 100 mg PO BID [facility] Last Admin: 03/07/18 08:40 Dose: 100 mg Admin: 03/06/18 22:41 Dose: 100 mg Admin: 03/06/18 09:23 Dose: 100 mg Enoxaparin Sodium (Lovenox) 40 mg SUBCUT DAILY [facility] Last Admin: 03/07/18 08:40 Dose: 40 mg Admin: 03/06/18 08:22 Dose: 40 mg Admin: 03/05/18 08:39 Dose: 40 mg Admin: 03/04/18 08:57 Dose: 40 mg Admin: 03/03/18 09:41 Dose: 40 mg Admin: 03/02/18 10:05 Dose: 40 mg Admin: 03/01/18 08:29 Dose: 40 mg Ibuprofen (Motrin) 600 mg PO Q6H PRN PRN Reason: Pain (moderate 4-6) Last Admin: 03/06/18 19:02 Dose: 600 mg Admin: 03/06/18 08:52 Dose: 600 mg Admin: 03/05/18 17:01 Dose: 600 mg Lorazepam (Ativan) 0.5 - 1 mg PO Q4H PRN PRN Reason: Anxiety Last Admin: 03/07/18 00:43 Dose: 0.5 mg Admin: 03/05/18 20:45 Dose: 0.5 mg Magnesium Hydroxide (Milk Of Magnesia) 30 ml PO BID [facility] Last Admin: 03/07/18 08:40 Dose: 30 ml Admin: 03/06/18 22:42 Dose: 30 ml Admin: 03/06/18 09:23 Dose: 30 ml Metronidazole (Metronidazole) 500 mg PO BIDMEALS [facility] Last Admin: 03/07/18 08:39 Dose: 500 mg Admin: 03/06/18 16:42 Dose: 500 mg Check Patch Daily (Trans Derm Scop) 1 each TOP DAILY [facility] Last Admin: 03/07/18 08:40 Dose: Not Given Admin: 03/06/18 08:22 Dose: Admin: 03/05/18 08:40 Dose: Admin: 03/04/18 08:59 Dose: Admin: 03/03/18 10:14 Dose: Pantoprazole Sodium (Protonix) 40 mg PO ACBREAKFAST [facility] Last Admin: 03/07/18 08:39 Dose: 40 mg Phenol (Phenaseptic Liquid) 0 ml PO Q1H PRN PRN Reason: Sore Throat Last Admin: 03/01/18 15:25 Dose: 2 sprays Scopolamine (Transderm-Scop) 1.5 mg TRDERM Q72H [facility] Last Admin: 03/06/18 08:23 Dose: 1.5 mg - Assessment Assessment (Free Text/Narrative):: Her PICC apparently was not functioning so it was removed. She has been eating but became nauseated after taking antibiotics by mouth and vomited. Feels well now. WBC 13,100. - Plan Plan (Free Text/Narrative):: No change for now. Make sure she can eat well. Leave Ruiz and BEN in place to protect re-implanted left ureter.
[2018-03-07] MEDS: Ibuprofen 600 MG Tab PO PRN ×3 (12:09→23:58)
[2018-03-07] MEDS: Levofloxacin 500 MG Tab PO SCH (12:11)
[2018-03-07] MEDS: Nystatin Susp 100,000 Unit/ML 5 ML UD Cup PO SCH ×3 (15:15→22:05)
[2018-03-08] MEDS: LORazepam 0.5 MG Tab PO PRN ×3 (02:00→23:34)
[2018-03-08] MEDS: Nystatin Susp 100,000 Unit/ML 5 ML UD Cup PO SCH ×4 (06:07→22:42)
--- NOTE | 2018-03-08 06:47 | PCM.SURGPN ---
- General Info Date of Service: 03/08/18 Date of Surgery/Procedure: 02/27/18 POD#: 9 Post-Op Diagnosis: Perforated sigmoid diverticulitis Functional Status: Reports: Pain Controlled, Tolerating Diet (Nausea at night with anxiety. ), Ambulating, Urinating (Ruiz ), Incentive Spirometry - Review of Systems General: Reports: Other (Anxiety at night ) HEENT: Reports: No Symptoms Pulmonary: Reports: No Symptoms Cardiovascular: Reports: No Symptoms Gastrointestinal: Reports: Nausea (At night) Genitourinary: Reports: No Symptoms Musculoskeletal: Reports: No Symptoms Skin: Reports: No Symptoms Neurological: Reports: No Symptoms Psychiatric: Reports: No Symptoms - Patient Data Vitals - Most Recent: Last Vital Signs Temp 97.7 F 03/08/18 03:00 Pulse 80 03/08/18 03:00 Resp 18 03/08/18 03:00 BP 139/73 03/08/18 03:00 Pulse Ox 95 03/08/18 03:00 Weight - Most Recent: 193 lb 6.4 oz I&O - Last 24 Hours: Intake & Output 03/07/18 03/07/18 03/08/18 14:59 22:59 06:59 Intake Total 440 440 Output Total 925 1385 880 Balance -485 -945 -880 Shun Results Last 24 Hrs: Microbiology 03/05/18 11:58 Catheter Tip Culture - Final Catheter Tip Other - Periph Insert Central Cath Staphylococcus Epidermidis Med Orders - Current: Current Medications Acetaminophen (Tylenol) 325 - 650 mg PO Q4H PRN PRN Reason: Pain (moderate 4-6) Hydrocodone Bitart/Acetaminophen (Boswell 325-5 Mg) 1 - 2 tab PO Q4H PRN PRN Reason: Pain (severe 7-10) Last Admin: 03/07/18 07:27 Dose: 1 tab Benzocaine/Menthol (Cepacol Sore Throat) 1 lozenge MUCMEM Q1H PRN PRN Reason: Sore Throat Last Admin: 02/28/18 09:30 Dose: 1 jamie Dimethicone/Zinc Oxide (Rash Relief-Zinc Oxide [place]) 0 gm TOP ASDIRECTED PRN PRN Reason: Rash Last Admin: 03/04/18 21:03 Dose: 1 applic Docusate Sodium (Colace) 100 mg PO BID ALLAN Last Admin: 03/07/18 21:51 Dose: 100 mg Enoxaparin Sodium (Lovenox) 40 mg SUBCUT DAILY [facility] Last Admin: 03/07/18 08:40 Dose: 40 mg Ibuprofen (Motrin) 600 mg PO Q6H PRN PRN Reason: Pain (moderate 4-6) Last Admin: 03/07/18 23:58 Dose: 600 mg Levofloxacin (Levaquin) 500 mg PO Q24H [facility] Last Admin: 03/07/18 12:11 Dose: 500 mg Lorazepam (Ativan) 0.5 - 1 mg PO Q4H PRN PRN Reason: Anxiety Last Admin: 03/08/18 02:00 Dose: 0.5 mg Magnesium Hydroxide (Milk Of Magnesia) 30 ml PO BID [facility] Last Admin: 03/07/18 21:51 Dose: 30 ml Check Patch Daily (Trans Derm Scop) 1 each TOP DAILY [facility] Last Admin: 03/06/18 08:22 Dose: Not Given Nystatin (Mycostatin) 5 ml PO QID [facility] Last Admin: 03/08/18 06:07 Dose: Not Given Pantoprazole Sodium (Protonix) 40 mg PO ACBREAKFAST [facility] Last Admin: 03/07/18 08:39 Dose: 40 mg Phenol (Phenaseptic Liquid) 0 ml PO Q1H PRN PRN Reason: Sore Throat Last Admin: 03/01/18 15:25 Dose: 2 sprays Scopolamine (Transderm-Scop) 1.5 mg TRDERM Q72H [facility] Last Admin: 03/06/18 08:23 Dose: 1.5 mg Discontinued Medications Bupivacaine HCl (Marcaine 0.5%) Confirm Administered Dose 50 ml .ROUTE .STK-MED ONE Stop: 03/02/18 06:44 Ciprofloxacin (Ciprofloxacin Hcl) 500 mg PO BID@1100,2300 [facility] Last Admin: 03/06/18 22:41 Dose: 500 mg Dexamethasone (Dexamethasone) Confirm Administered Dose 4 mg .ROUTE .STK-MED ONE Stop: 02/27/18 14:10 Diphenhydramine HCl (Benadryl) 50 mg IVPUSH ONETIME ONE Stop: 02/25/18 21:43 Last Admin: 02/25/18 21:44 Dose: 50 mg Diphenhydramine HCl (Benadryl) Confirm Administered Dose 50 mg .ROUTE .STK-MED ONE Stop: 02/25/18 21:44 Last Admin: 02/25/18 21:49 Dose: Not Given Docusate Sodium (Colace) 100 mg PO BID PRN PRN Reason: Constipation Enoxaparin Sodium (Lovenox) 40 mg SUBCUT Q24H [facility] Last Admin: 02/27/18 10:17 Dose: 40 mg Fentanyl (Sublimaze) Confirm Administered Dose 250 mcg .ROUTE .STK-MED ONE Stop: 02/27/18 14:10 Fentanyl (Sublimaze) Confirm Administered Dose 250 mcg .ROUTE .STK-MED ONE Stop: 02/27/18 14:54 Fentanyl (Sublimaze) Confirm Administered Dose 100 mcg .ROUTE .STK-MED ONE Stop: 03/02/18 07:36 Fentanyl (Sublimaze) 10 - 25 mcg IVPUSH Q2H PRN PRN Reason: SEVERE PAIN Fentanyl Citrate (Fentanyl In Ns 20 Mcg/Ml 30 Ml Social Contact Worker) 0 mcg IV ASDIRECTED PRN; Protocol PRN Reason: Pain Last Admin: 02/26/18 12:51 Dose: 600 mcg Fentanyl Citrate (Fentanyl In Ns 20 Mcg/Ml 30 Ml Social Contact Worker) 0 mcg IV ASDIRECTED PRN; Protocol PRN Reason: Pain Last Admin: 03/04/18 11:14 Dose: 600 mcg Glycopyrrolate (Robinul) Confirm Administered Dose 1 mg .ROUTE .STK-MED ONE Stop: 02/27/18 14:10 Hydromorphone HCl (Dilaudid) 0.5 mg IVPUSH ONETIME ONE Stop: 02/25/18 21:14 Last Admin: 02/25/18 21:33 Dose: 0.5 mg Sodium Chloride (Normal Saline) 1,000 mls @ 999 mls/hr IV ASDIRECTED [facility] Last Admin: 02/25/18 21:28 Dose: 999 mls/hr Sodium Chloride (Normal Saline) 80 mls @ 3 mls/sec IV ASDIRECTED [facility] Last Admin: 02/25/18 22:39 Dose: 3 mls/sec Ciprofloxacin/Dextrose 400 mg/ (Premix) 200 mls @ 200 mls/hr IV ONETIME ONE Stop: 02/26/18 01:18 Last Admin: 02/26/18 02:19 Dose: 200 mls/hr Metronidazole 500 mg/ Premix 100 mls @ 100 mls/hr IV ONETIME ONE Stop: 02/26/18 01:18 Last Admin: 02/26/18 00:54 Dose: 100 mls/hr Sodium Chloride (Normal Saline) 1,000 mls @ 125 mls/hr IV ASDIRECTED [facility] Last Admin: 02/26/18 08:11 Dose: 125 mls/hr Sodium Chloride (Normal Saline) 1,000 mls @ 125 mls/hr IV ASDIRECTED [facility] Last Admin: 02/27/18 05:58 Dose: 125 mls/hr Ciprofloxacin/Dextrose 400 mg/ (Premix) 200 mls @ 200 mls/hr IV Q12H [facility] Last Admin: 02/26/18 06:13 Dose: Not Given Metronidazole 500 mg/ Premix 100 mls @ 100 mls/hr IV Q8H [facility] Last Admin: 02/26/18 06:14 Dose: Not Given Ciprofloxacin/Dextrose 400 mg/ (Premix) 200 mls @ 200 mls/hr IV Q12H [facility] Last Admin: 03/06/18 14:18 Dose: 200 mls/hr Metronidazole 500 mg/ Premix 100 mls @ 100 mls/hr IV Q8H [facility] Last Admin: 03/06/18 08:22 Dose: 100 mls/hr Magnesium Sulfate 2 gm/ Premix 50 mls @ 25 mls/hr IV ONETIME ONE Stop: 02/27/18 10:59 Last Admin: 02/27/18 10:26 Dose: 25 mls/hr Sodium Chloride (Normal Saline) 81 mls @ 3.5 mls/sec IV ASDIRECTED [facility] Stop: 02/27/18 23:00 Last Admin: 02/27/18 12:09 Dose: 3.5 mls/sec Lactated Ringer's (Ringers, Lactated) Confirm Administered Dose 1,000 mls @ as directed .ROUTE .STK-MED ONE Stop: 02/27/18 15:22 Potassium Chloride/Dextrose/Sod Cl (D5 1/2 Ns W/ 20 Meq/L Kcl) 1,000 mls @ 150 mls/hr IV ASDIRECTED [facility] Last Admin: 02/28/18 00:15 Dose: 150 mls/hr Potassium Chloride/Dextrose/Sod Cl (D5 1/2 Ns W/ 20 Meq/L Kcl) 1,000 mls @ 0 mls/hr IV ASDIRECTED [facility] Last Admin: 03/03/18 23:22 Dose: 75 mls/hr Sodium Chloride (Normal Saline) 500 mls @ 500 mls/hr IV .BOLUS ONE Stop: 03/01/18 20:51 Last Admin: 03/01/18 20:35 Dose: 500 mls/hr Multivitamins/Minerals 10 ml/Chromium/Copper/Manganese/Seleni/Zn 1 ml/ Amino Ac/ Electrol/Dextrose/Calcium 1,011 mls @ 80 mls/hr IV .BY DURATION [facility] Last Admin: 03/04/18 17:11 Dose: 80 mls/hr Amino Ac/Electrol/Dextrose/Calcium (Clinimix E 01/25) 1,000 mls @ 80 mls/hr IV .BY DURATION [facility] Last Admin: 03/05/18 09:45 Dose: Not Given Iopamidol (Isovue-300 (61%)) 132 ml IV . DIRECTED [facility] Last Admin: 02/25/18 22:39 Dose: 132 ml Iopamidol (Isovue-300 (61%)) 136 ml IV . DIRECTED PRN PRN Reason: RADIOLOGY EXAM Stop: 02/28/18 10:26 Last Admin: 02/27/18 12:08 Dose: 136 ml Lidocaine/Epinephrine (Xylocaine 1% With Epinephrine 1:100,000) Confirm Administered Dose 50 ml .ROUTE .STK-MED ONE Stop: 03/02/18 06:44 Lorazepam (Ativan) 2 mg IVPUSH Q4H PRN PRN Reason: Anxiety Last Admin: 02/27/18 01:16 Dose: 1 mg Lorazepam (Ativan) Confirm Administered Dose 2 mg .ROUTE .STK-MED ONE Stop: 02/27/18 01:14 Last Admin: 02/27/18 02:18 Dose: Not Given Lorazepam (Ativan) 1 mg IVPUSH Q4H PRN PRN Reason: Anxiety Last Admin: 03/04/18 11:59 Dose: 1 mg Lorazepam (Ativan) 0.5 - 1 mg IVPUSH Q4H PRN PRN Reason: Anxiety Magnesium Oxide (Magnesium Oxide) 400 mg PO BID [facility] Last Admin: 02/27/18 09:01 Dose: 400 mg Methylprednisolone Sodium Succinate (Solu-Medrol) 125 mg IVPUSH ONETIME ONE Stop: 02/25/18 21:43 Last Admin: 02/25/18 21:45 Dose: 125 mg Methylprednisolone Sodium Succinate (Solu-Medrol) Confirm Administered Dose 125 mg .ROUTE .STK-MED ONE Stop: 02/25/18 21:44 Last Admin: 02/25/18 21:49 Dose: Not Given Metoclopramide HCl (Reglan) 10 mg IVPUSH Q6H PRN PRN Reason: Nausea Last Admin: 03/05/18 20:09 Dose: 10 mg Metronidazole (Metronidazole) 500 mg PO BIDMEALS [facility] Last Admin: 03/07/18 08:39 Dose: 500 mg Midazolam HCl (Versed 1 Mg/Ml) Confirm Administered Dose 2 mg .ROUTE .STK-MED ONE Stop: 03/02/18 07:36 Morphine Sulfate (Morphine) 1 mg IVPUSH Q1H PRN PRN Reason: Abdominal Pain Last Admin: 02/26/18 06:17 Dose: 1 mg Morphine Sulfate (Morphine) Confirm Administered Dose 2 mg .ROUTE .STK-MED ONE Stop: 02/26/18 06:16 Last Admin: 02/26/18 06:35 Dose: Not Given Naloxone HCl (Narcan) 0.1 mg IVPUSH Q2M PRN PRN Reason: Respiratory Distress Naloxone HCl (Narcan) 0.4 mg IVPUSH Q2M PRN PRN Reason: Respiratory Distress Neostigmine Methylsulfate (Neostigmine) Confirm Administered Dose 5 mg .ROUTE .STK-MED ONE Stop: 02/27/18 14:10 Check Patch Daily (Trans Derm Scop) 1 each TOP DAILY PRN PRN Reason: patch Non-Formulary Medication (Total Parenteral Nutrition, Central) 0 ml IV DAILY [facility] Stop: 03/04/18 22:00 Last Admin: 03/04/18 14:14 Dose: Not Given Ondansetron HCl (Zofran) 4 mg IVPUSH ONETIME ONE Stop: 02/25/18 21:14 Last Admin: 02/25/18 21:30 Dose: 4 mg Ondansetron HCl (Zofran) 4 mg IV Q4H PRN PRN Reason: Nausea/Vomiting Last Admin: 03/05/18 02:54 Dose: 4 mg Ondansetron HCl (Zofran) Confirm Administered Dose 4 mg .ROUTE .STK-MED ONE Stop: 02/27/18 14:10 Oxycodone/Acetaminophen (Percocet 325-5 Mg) 1 - 2 tab PO Q4H PRN PRN Reason: Pain (moderate 4-6) Last Admin: 03/05/18 11:06 Dose: 2 tab Pantoprazole Sodium (Protonix Iv) 40 mg IVPUSH Q24H [facility] Last Admin: 03/06/18 05:15 Dose: 40 mg Pantoprazole Sodium (Protonix Iv) Confirm Administered Dose 40 mg .ROUTE .STK -MED ONE Stop: 02/27/18 06:20 Last Admin: 02/27/18 06:28 Dose: Not Given Propofol (Diprivan 20 Ml) Confirm Administered Dose 200 mg .ROUTE .STK-MED ONE Stop: 02/27/18 14:10 Propofol (Diprivan 20 Ml) Confirm Administered Dose 200 mg .ROUTE .STK-MED ONE Stop: 03/02/18 07:36 Rocuronium [place] (Zemuron) Confirm Administered Dose 50 mg .ROUTE .STK-MED ONE Stop: 02/27/18 14:10 Scopolamine (Transderm-Scop) 1.5 mg TRDERM Q72H PRN PRN Reason: Nausea Last Admin: 03/03/18 16:07 Dose: 1.5 mg Sodium Chloride (Saline Flush) 10 ml FLUSH ASDIRECTED PRN PRN Reason: Keep Vein Open Last Admin: 02/25/18 22:39 Dose: 10 ml - Exam Wound/Incisions: Healing Well (Appears irritated from philip. ), Dressing Dry and Intact, No Drainage Quality Assessment: Urine Catheter General: Alert, Oriented, Cooperative, No Acute Distress Lungs: Clear to Auscultation, Normal Respiratory Effort Cardiovascular: Regular Rate, Regular Rhythm GI/Abdominal Exam: Normal Bowel Sounds, Soft Extremities: Normal Inspection Skin: Warm, Dry, Intact Neurological: No New Focal Deficit Psy/Mental Status: Alert, Normal Affect, Normal Mood - Problem List & Annotations (1) Acute diverticulitis of intestine SNOMED Code(s): 341016086 Code(s): K57.92 - DVTRCLI OF INTEST, PART UNSP, W/O PERF OR ABSCESS W/O BLEED Status: Acute Current Visit: Yes (2) Perforation bowel SNOMED Code(s): 05620449 Code(s): K63.1 - PERFORATION OF INTESTINE (NONTRAUMATIC) Status: Acute Current Visit: Yes - Problem List Review Problem List Initiated/Reviewed/Updated: Yes - My Orders Last 24 Hours: Active Orders 24 hr Category Date Time Status Communication Order [RC] ASDIRECTED Care 03/08/18 06:43 Ordered CBC W/O DIFF,HEMOGRAM [HEME] DAILY Lab 03/09/18 05:11 Ordered CBC W/O DIFF,HEMOGRAM [HEME] DAILY Lab 03/10/18 05:11 Ordered CBC W/O DIFF,HEMOGRAM [HEME] DAILY Lab 03/11/18 05:11 Ordered CBC W/O DIFF,HEMOGRAM [HEME] DAILY Lab 03/12/18 05:11 Ordered CBC W/O DIFF,HEMOGRAM [HEME] DAILY Lab 03/13/18 05:11 Ordered CBC W/O DIFF,HEMOGRAM [HEME] DAILY Lab 03/14/18 05:11 Ordered COMPREHENSIVE METABOLIC PN,CMP [CHEM] Routine Lab 03/09/18 05:11 Ordered Levofloxacin [Levaquin] Med 03/07/18 13:00 Active 500 mg PO Q24H Nystatin [Mycostatin] Med 03/07/18 16:00 Active 5 ml PO QID Pantoprazole [ProTONIX] Med 03/07/18 07:30 Active 40 mg PO ACBREAKFAST Medication Orders Acetaminophen (Tylenol) 325 - 650 mg PO Q4H PRN PRN Reason: Pain (moderate 4-6) Hydrocodone Bitart/Acetaminophen (Boswell 325-5 Mg) 1 - 2 tab PO Q4H PRN PRN Reason: Pain (severe 7-10) Last Admin: 03/07/18 07:27 Dose: 1 tab Benzocaine/Menthol (Cepacol Sore Throat) 1 lozenge MUCMEM Q1H PRN PRN Reason: Sore Throat Last Admin: 02/28/18 09:30 Dose: 1 jamie Dimethicone/Zinc Oxide (Rash Relief-Zinc Oxide [place]) 0 gm TOP ASDIRECTED PRN PRN Reason: Rash Last Admin: 03/04/18 21:03 Dose: 1 applic Docusate Sodium (Colace) 100 mg PO BID ALLAN Last Admin: 03/07/18 21:51 Dose: 100 mg Admin: 03/07/18 08:40 Dose: 100 mg Admin: 03/06/18 22:41 Dose: 100 mg Admin: 03/06/18 09:23 Dose: 100 mg Enoxaparin Sodium (Lovenox) 40 mg SUBCUT DAILY [facility] Last Admin: 03/07/18 08:40 Dose: 40 mg Admin: 03/06/18 08:22 Dose: 40 mg Admin: 03/05/18 08:39 Dose: 40 mg Admin: 03/04/18 08:57 Dose: 40 mg Admin: 03/03/18 09:41 Dose: 40 mg Admin: 03/02/18 10:05 Dose: 40 mg Admin: 03/01/18 08:29 Dose: 40 mg Ibuprofen (Motrin) 600 mg PO Q6H PRN PRN Reason: Pain (moderate 4-6) Last Admin: 03/07/18 23:58 Dose: 600 mg Admin: 03/07/18 18:06 Dose: 600 mg Admin: 03/07/18 12:09 Dose: 600 mg Admin: 03/06/18 19:02 Dose: 600 mg Admin: 03/06/18 08:52 Dose: 600 mg Admin: 03/05/18 17:01 Dose: 600 mg Levofloxacin (Levaquin) 500 mg PO Q24H [facility] Last Admin: 03/07/18 12:11 Dose: 500 mg Lorazepam (Ativan) 0.5 - 1 mg PO Q4H PRN PRN Reason: Anxiety Last Admin: 03/08/18 02:00 Dose: 0.5 mg Admin: 03/07/18 19:15 Dose: 0.5 mg Admin: 03/07/18 00:43 Dose: 0.5 mg Admin: 03/05/18 20:45 Dose: 0.5 mg Magnesium Hydroxide (Milk Of Magnesia) 30 ml PO BID [facility] Last Admin: 03/07/18 21:51 Dose: 30 ml Admin: 03/07/18 08:40 Dose: 30 ml Admin: 03/06/18 22:42 Dose: 30 ml Admin: 03/06/18 09:23 Dose: 30 ml Check Patch Daily (Trans Derm Scop) 1 each TOP DAILY [facility] Last Admin: 03/06/18 08:22 Dose: Admin: 03/05/18 08:40 Dose: Admin: 03/04/18 08:59 Dose: Admin: 03/03/18 10:14 Dose: Nystatin (Mycostatin) 5 ml PO QID [facility] Last Admin: 03/08/18 06:07 Dose: Not Given Admin: 03/07/18 22:05 Dose: Not Given Admin: 03/07/18 15:15 Dose: 5 ml Pantoprazole Sodium (Protonix) 40 mg PO ACBREAKFAST [facility] Last Admin: 03/07/18 08:39 Dose: 40 mg Phenol (Phenaseptic Liquid) 0 ml PO Q1H PRN PRN Reason: Sore Throat Last Admin: 03/01/18 15:25 Dose: 2 sprays Scopolamine (Transderm-Scop) 1.5 mg TRDERM Q72H [facility] Last Admin: 03/06/18 08:23 Dose: 1.5 mg - Assessment Assessment (Free Text/Narrative):: Ostomy is starting to work well. Her main complaint is anxiety at night. The Ativan helped. - Plan Plan (Free Text/Narrative):: Teach ostomy care today.
[2018-03-08] MEDS: Ibuprofen 600 MG Tab PO PRN ×3 (08:13→23:35)
[2018-03-08] MEDS: Magnesium Hydroxide 400 MG/5 ML Susp 30 ML Cup PO SCH ×2 (08:15→22:43)
[2018-03-08] MEDS: Docusate Sodium 100 MG Cap PO SCH ×2 (08:16→22:43)
[2018-03-08] MEDS: Enoxaparin 40 MG/0.4 ML Syringe SUBCUT SCH (08:16)
[2018-03-08] MEDS: Pantoprazole 40 MG Tab.CR PO SCH (08:16)
[2018-03-08] MEDS: [UNRECOGNIZED DRUG - REMARK] TOP SCH (08:17)
[2018-03-08] MEDS: Acetaminophen 325 MG Tab PO PRN ×2 (12:21→19:50)
[2018-03-08] MEDS: Levofloxacin 500 MG Tab PO SCH (13:55)
[2018-03-09] MEDS: Acetaminophen 325 MG Tab PO PRN ×3 (02:25→22:55)
[2018-03-09] MEDS: Nystatin Susp 100,000 Unit/ML 5 ML UD Cup PO SCH ×4 (06:31→22:39)
[2018-03-09] MEDS: Docusate Sodium 100 MG Cap PO SCH ×2 (08:05→20:53)
[2018-03-09] MEDS: Ibuprofen 600 MG Tab PO PRN ×3 (08:05→20:53)
[2018-03-09] MEDS: Pantoprazole 40 MG Tab.CR PO SCH (08:05)
[2018-03-09] MEDS: Enoxaparin 40 MG/0.4 ML Syringe SUBCUT SCH (08:06)
[2018-03-09] MEDS: Magnesium Hydroxide 400 MG/5 ML Susp 30 ML Cup PO SCH (08:06)
[2018-03-09] MEDS: Scopolamine 1.5 MG Transdermal Patch TRDERM SCH (08:06)
[2018-03-09] MEDS: [UNRECOGNIZED DRUG - REMARK] TOP SCH (08:07)
[2018-03-09] MEDS: Levofloxacin 500 MG Tab PO SCH (12:24)
--- NOTE | 2018-03-09 12:24 | PCM.SURGPN ---
- General Info Date of Service: 03/09/18 Date of Surgery/Procedure: 02/27/18 POD#: 10 Post-Op Diagnosis: Perforated sigmoid diverticulitis. - Review of Systems General: Reports: Other (Anxiety about everything. ) HEENT: Reports: No Symptoms Pulmonary: Reports: No Symptoms Cardiovascular: Reports: No Symptoms Gastrointestinal: Reports: No Symptoms Genitourinary: Reports: No Symptoms Musculoskeletal: Reports: No Symptoms Skin: Reports: No Symptoms Neurological: Reports: No Symptoms Psychiatric: Reports: No Symptoms - Patient Data Vitals - Most Recent: Last Vital Signs Temp 97.7 F 03/09/18 11:00 Pulse 76 03/09/18 11:00 Resp 18 03/09/18 11:00 BP 124/61 03/09/18 11:00 Pulse Ox 97 03/09/18 11:00 Weight - Most Recent: 191 lb 6.4 oz I&O - Last 24 Hours: Intake & Output 03/08/18 03/09/18 03/09/18 22:59 06:59 14:59 Intake Total 480 700 Output Total 5448 001 2163 Balance -1070 -952 -550 Lab Results Last 24 Hrs: Laboratory Results - last 24 hr 03/09/18 03/09/18 Range/Units 05:35 05:35 WBC 12.7 H (4.5-11.0) K/uL RBC 3.83 (3.30-5.50) M/uL Hgb 10.7 L (12.0-15.0) g/dL Hct 34.0 L (36.0-48.0) % MCV 89 (80-98) fL MCH 28 (27-31) pg MCHC 32 (32-36) % Plt Count 422 H (150-400) K/uL Sodium 140 (140-148) mmol/L Potassium 4.1 (3.6-5.2) mmol/L Chloride 106 (100-108) mmol/L Carbon Dioxide 28 (21-32) mmol/L Anion Gap 6.5 (5.0-14.0) mmol/L BUN 14 (7-18) mg/dL Creatinine 1.0 (0.6-1.0) mg/dL Est Cr Clr Drug Dosing 50.37 mL/min Estimated GFR (MDRD) 56 L (>60) Glucose 97 (74-106) mg/dL Calcium 8.3 L (8.5-10.1) mg/dL Total Bilirubin 0.3 (0.2-1.0) mg/dL AST 12 L (15-37) U/L ALT 23 (12-78) U/L Alkaline Phosphatase 102 (46-116) U/L Total Protein 6.0 L (6.4-8.2) g/dL Albumin 2.5 L (3.4-5.0) g/dL Globulin 3.5 (2.3-3.5) g/dL Albumin/Globulin Ratio 0.7 L (1.2-2.2) Med Orders - Current: Current Medications Acetaminophen (Tylenol) 325 - 650 mg PO Q4H PRN PRN Reason: Pain (moderate 4-6) Last Admin: 03/09/18 02:25 Dose: 650 mg Hydrocodone Bitart/Acetaminophen ([place] 325-5 Mg) 1 - 2 tab PO Q4H PRN PRN Reason: Pain (severe 7-10) Last Admin: 03/07/18 07:27 Dose: 1 tab Benzocaine/Menthol (Cepacol Sore Throat) 1 lozenge MUCMEM Q1H PRN PRN Reason: Sore Throat Last Admin: 02/28/18 09:30 Dose: 1 jamie Dimethicone/Zinc Oxide (Rash Relief-Zinc Oxide [place]) 0 gm TOP ASDIRECTED PRN PRN Reason: Rash Last Admin: 03/04/18 21:03 Dose: 1 applic Docusate Sodium (Colace) 100 mg PO BID [facility] Last Admin: 03/09/18 08:05 Dose: 100 mg Enoxaparin Sodium (Lovenox) 40 mg SUBCUT DAILY [facility] Last Admin: 03/09/18 08:06 Dose: 40 mg Ibuprofen (Motrin) 600 mg PO Q6H PRN PRN Reason: Pain (moderate 4-6) Last Admin: 03/09/18 08:05 Dose: 600 mg Levofloxacin (Levaquin) 500 mg PO Q24H [facility] Last Admin: 03/08/18 13:55 Dose: 500 mg Lorazepam (Ativan) 0.5 - 1 mg PO Q4H PRN PRN Reason: Anxiety Last Admin: 03/08/18 23:34 Dose: 0.5 mg Magnesium Hydroxide (Milk Of Magnesia) 30 ml PO BID [facility] Last Admin: 03/09/18 08:06 Dose: 30 ml Check Patch Daily (Trans Derm Scop) 1 each TOP DAILY [facility] Last Admin: 03/09/18 08:07 Dose: Not Given Nystatin (Mycostatin) 5 ml PO QID [facility] Last Admin: 03/09/18 09:22 Dose: Not Given Pantoprazole Sodium (Protonix) 40 mg PO ACBREAKFAST [facility] Last Admin: 03/09/18 08:05 Dose: 40 mg Phenol (Phenaseptic Liquid) 0 ml PO Q1H PRN PRN Reason: Sore Throat Last Admin: 03/01/18 15:25 Dose: 2 sprays Scopolamine (Transderm-Scop) 1.5 mg TRDERM Q72H [facility] Last Admin: 03/09/18 08:06 Dose: 1.5 mg Discontinued Medications Bupivacaine HCl (Marcaine 0.5%) Confirm Administered Dose 50 ml .ROUTE .STK-MED ONE Stop: 03/02/18 06:44 Ciprofloxacin (Ciprofloxacin Hcl) 500 mg PO BID@1100,2300 [facility] Last Admin: 03/06/18 22:41 Dose: 500 mg Dexamethasone (Dexamethasone) Confirm Administered Dose 4 mg .ROUTE .STK-MED ONE Stop: 02/27/18 14:10 Diphenhydramine HCl (Benadryl) 50 mg IVPUSH ONETIME ONE Stop: 02/25/18 21:43 Last Admin: 02/25/18 21:44 Dose: 50 mg Diphenhydramine HCl (Benadryl) Confirm Administered Dose 50 mg .ROUTE .STK-MED ONE Stop: 02/25/18 21:44 Last Admin: 02/25/18 21:49 Dose: Not Given Docusate Sodium (Colace) 100 mg PO BID PRN PRN Reason: Constipation Enoxaparin Sodium (Lovenox) 40 mg SUBCUT Q24H [facility] Last Admin: 02/27/18 10:17 Dose: 40 mg Fentanyl (Sublimaze) Confirm Administered Dose 250 mcg .ROUTE .STK-MED ONE Stop: 02/27/18 14:10 Fentanyl (Sublimaze) Confirm Administered Dose 250 mcg .ROUTE .STK-MED ONE Stop: 02/27/18 14:54 Fentanyl (Sublimaze) Confirm Administered Dose 100 mcg .ROUTE .STK-MED ONE Stop: 03/02/18 07:36 Fentanyl (Sublimaze) 10 - 25 mcg IVPUSH Q2H PRN PRN Reason: SEVERE PAIN Fentanyl Citrate (Fentanyl In Ns 20 Mcg/Ml 30 Ml [place]) 0 mcg IV ASDIRECTED PRN; Protocol PRN Reason: Pain Last Admin: 02/26/18 12:51 Dose: 600 mcg Fentanyl Citrate (Fentanyl In Ns 20 Mcg/Ml 30 Ml [place]) 0 mcg IV ASDIRECTED PRN; Protocol PRN Reason: Pain Last Admin: 03/04/18 11:14 Dose: 600 mcg Glycopyrrolate (Robinul) Confirm Administered Dose 1 mg .ROUTE .STK-MED ONE Stop: 02/27/18 14:10 Hydromorphone HCl (Dilaudid) 0.5 mg IVPUSH ONETIME ONE Stop: 02/25/18 21:14 Last Admin: 02/25/18 21:33 Dose: 0.5 mg Sodium Chloride (Normal Saline) 1,000 mls @ 999 mls/hr IV ASDIRECTED [facility] Last Admin: 02/25/18 21:28 Dose: 999 mls/hr Sodium Chloride (Normal Saline) 80 mls @ 3 mls/sec IV ASDIRECTED [facility] Last Admin: 02/25/18 22:39 Dose: 3 mls/sec Ciprofloxacin/Dextrose 400 mg/ (Premix) 200 mls @ 200 mls/hr IV ONETIME ONE Stop: 02/26/18 01:18 Last Admin: 02/26/18 02:19 Dose: 200 mls/hr Metronidazole 500 mg/ Premix 100 mls @ 100 mls/hr IV ONETIME ONE Stop: 02/26/18 01:18 Last Admin: 02/26/18 00:54 Dose: 100 mls/hr Sodium Chloride (Normal Saline) 1,000 mls @ 125 mls/hr IV ASDIRECTED [facility] Last Admin: 02/26/18 08:11 Dose: 125 mls/hr Sodium Chloride (Normal Saline) 1,000 mls @ 125 mls/hr IV ASDIRECTED [facility] Last Admin: 02/27/18 05:58 Dose: 125 mls/hr Ciprofloxacin/Dextrose 400 mg/ (Premix) 200 mls @ 200 mls/hr IV Q12H [facility] Last Admin: 02/26/18 06:13 Dose: Not Given Metronidazole 500 mg/ Premix 100 mls @ 100 mls/hr IV Q8H [facility] Last Admin: 02/26/18 06:14 Dose: Not Given Ciprofloxacin/Dextrose 400 mg/ (Premix) 200 mls @ 200 mls/hr IV Q12H [facility] Last Admin: 03/06/18 14:18 Dose: 200 mls/hr Metronidazole 500 mg/ Premix 100 mls @ 100 mls/hr IV Q8H [facility] Last Admin: 03/06/18 08:22 Dose: 100 mls/hr Magnesium Sulfate 2 gm/ Premix 50 mls @ 25 mls/hr IV ONETIME ONE Stop: 02/27/18 10:59 Last Admin: 02/27/18 10:26 Dose: 25 mls/hr Sodium Chloride (Normal Saline) 81 mls @ 3.5 mls/sec IV ASDIRECTED [facility] Stop: 02/27/18 23:00 Last Admin: 02/27/18 12:09 Dose: 3.5 mls/sec Lactated Ringer's (Ringers, Lactated) Confirm Administered Dose 1,000 mls @ as directed .ROUTE .STK-MED ONE Stop: 02/27/18 15:22 Potassium Chloride/Dextrose/Sod Cl (D5 1/2 Ns W/ 20 Meq/L Kcl) 1,000 mls @ 150 mls/hr IV ASDIRECTED [facility] Last Admin: 02/28/18 00:15 Dose: 150 mls/hr Potassium Chloride/Dextrose/Sod Cl (D5 1/2 Ns W/ 20 Meq/L Kcl) 1,000 mls @ 0 mls/hr IV ASDIRECTED [facility] Last Admin: 03/03/18 23:22 Dose: 75 mls/hr Sodium Chloride (Normal Saline) 500 mls @ 500 mls/hr IV .BOLUS ONE Stop: 03/01/18 20:51 Last Admin: 03/01/18 20:35 Dose: 500 mls/hr Multivitamins/Minerals 10 ml/Chromium/Copper/Manganese/Seleni/Zn 1 ml/ Amino Ac/ Electrol/Dextrose/Calcium 1,011 mls @ 80 mls/hr IV .BY DURATION [facility] Last Admin: 03/04/18 17:11 Dose: 80 mls/hr Amino Ac/Electrol/Dextrose/Calcium (Clinimix E 15) 1,000 mls @ 80 mls/hr IV .BY DURATION [facility] Last Admin: 03/05/18 09:45 Dose: Not Given Iopamidol (Isovue-300 (61%)) 132 ml IV . DIRECTED [facility] Last Admin: 02/25/18 22:39 Dose: 132 ml Iopamidol (Isovue-300 (61%)) 136 ml IV . DIRECTED PRN PRN Reason: RADIOLOGY EXAM Stop: 02/28/18 10:26 Last Admin: 02/27/18 12:08 Dose: 136 ml Lidocaine/Epinephrine (Xylocaine 1% With Epinephrine 1:100,000) Confirm Administered Dose 50 ml .ROUTE .STK-MED ONE Stop: 03/02/18 06:44 Lorazepam (Ativan) 2 mg IVPUSH Q4H PRN PRN Reason: Anxiety Last Admin: 02/27/18 01:16 Dose: 1 mg Lorazepam (Ativan) Confirm Administered Dose 2 mg .ROUTE .STK-MED ONE Stop: 02/27/18 01:14 Last Admin: 02/27/18 02:18 Dose: Not Given Lorazepam (Ativan) 1 mg IVPUSH Q4H PRN PRN Reason: Anxiety Last Admin: 03/04/18 11:59 Dose: 1 mg Lorazepam (Ativan) 0.5 - 1 mg IVPUSH Q4H PRN PRN Reason: Anxiety Magnesium Oxide (Magnesium Oxide) 400 mg PO BID [facility] Last Admin: 02/27/18 09:01 Dose: 400 mg Methylprednisolone Sodium Succinate (Solu-Medrol) 125 mg IVPUSH ONETIME ONE Stop: 02/25/18 21:43 Last Admin: 02/25/18 21:45 Dose: 125 mg Methylprednisolone Sodium Succinate (Solu-Medrol) Confirm Administered Dose 125 mg .ROUTE .STK-MED ONE Stop: 02/25/18 21:44 Last Admin: 02/25/18 21:49 Dose: Not Given Metoclopramide HCl (Reglan) 10 mg IVPUSH Q6H PRN PRN Reason: Nausea Last Admin: 03/05/18 20:09 Dose: 10 mg Metronidazole (Metronidazole) 500 mg PO BIDMEALS [facility] Last Admin: 03/07/18 08:39 Dose: 500 mg Midazolam HCl (Versed 1 Mg/Ml) Confirm Administered Dose 2 mg .ROUTE .STK-MED ONE Stop: 03/02/18 07:36 Morphine Sulfate (Morphine) 1 mg IVPUSH Q1H PRN PRN Reason: Abdominal Pain Last Admin: 02/26/18 06:17 Dose: 1 mg Morphine Sulfate (Morphine) Confirm Administered Dose 2 mg .ROUTE .STK-MED ONE Stop: 02/26/18 06:16 Last Admin: 02/26/18 06:35 Dose: Not Given Naloxone HCl (Narcan) 0.1 mg IVPUSH Q2M PRN PRN Reason: Respiratory Distress Naloxone HCl (Narcan) 0.4 mg IVPUSH Q2M PRN PRN Reason: Respiratory Distress Neostigmine Methylsulfate (Neostigmine) Confirm Administered Dose 5 mg .ROUTE .STK-MED ONE Stop: 02/27/18 14:10 Check Patch Daily (Trans Derm Scop) 1 each TOP DAILY PRN PRN Reason: patch Non-Formulary Medication (Total Parenteral Nutrition, Central) 0 ml IV DAILY [facility] Stop: 03/04/18 22:00 Last Admin: 03/04/18 14:14 Dose: Not Given Ondansetron HCl (Zofran) 4 mg IVPUSH ONETIME ONE Stop: 02/25/18 21:14 Last Admin: 02/25/18 21:30 Dose: 4 mg Ondansetron HCl (Zofran) 4 mg IV Q4H PRN PRN Reason: Nausea/Vomiting Last Admin: 03/05/18 02:54 Dose: 4 mg Ondansetron HCl (Zofran) Confirm Administered Dose 4 mg .ROUTE .STK-MED ONE Stop: 02/27/18 14:10 Oxycodone/Acetaminophen (Percocet 325-5 Mg) 1 - 2 tab PO Q4H PRN PRN Reason: Pain (moderate 4-6) Last Admin: 03/05/18 11:06 Dose: 2 tab Pantoprazole Sodium (Protonix Iv) 40 mg IVPUSH Q24H [facility] Last Admin: 03/06/18 05:15 Dose: 40 mg Pantoprazole Sodium (Protonix Iv) Confirm Administered Dose 40 mg .ROUTE .STK -MED ONE Stop: 02/27/18 06:20 Last Admin: 02/27/18 06:28 Dose: Not Given Propofol (Diprivan 20 Ml) Confirm Administered Dose 200 mg .ROUTE .STK-MED ONE Stop: 02/27/18 14:10 Propofol (Diprivan 20 Ml) Confirm Administered Dose 200 mg .ROUTE .STK-MED ONE Stop: 03/02/18 07:36 Rocuronium [place] (Zemuron) Confirm Administered Dose 50 mg .ROUTE .STK-MED ONE Stop: 02/27/18 14:10 Scopolamine (Transderm-Scop) 1.5 mg TRDERM Q72H PRN PRN Reason: Nausea Last Admin: 03/03/18 16:07 Dose: 1.5 mg Sodium Chloride (Saline Flush) 10 ml FLUSH ASDIRECTED PRN PRN Reason: Keep Vein Open Last Admin: 02/25/18 22:39 Dose: 10 ml - Exam Wound/Incisions: Healing Well, Dressing Dry and Intact, No Drainage Quality Assessment: Urine Catheter, DVT Prophylaxis General: Alert, Cooperative, No Acute Distress Lungs: Clear to Auscultation, Normal Respiratory Effort Cardiovascular: Regular Rate, Regular Rhythm GI/Abdominal Exam: Normal Bowel Sounds, Soft, Non-Tender Extremities: Normal Inspection Skin: Warm, Dry, Intact Psy/Mental Status: Alert, Normal Affect, Normal Mood, Anxious (Became anxious with thought of going home. ) - Problem List & Annotations (1) Acute diverticulitis of intestine SNOMED Code(s): 526960548 Code(s): K57.92 - DVTRCLI OF INTEST, PART UNSP, W/O PERF OR ABSCESS W/O BLEED Status: Acute Current Visit: Yes (2) Perforation bowel SNOMED Code(s): 28044712 Code(s): K63.1 - PERFORATION OF INTESTINE (NONTRAUMATIC) Status: Acute Current Visit: Yes - Problem List Review Problem List Initiated/Reviewed/Updated: Yes - My Orders Last 24 Hours: Active Orders 24 hr Category Date Time Status Communication Order [RC] ASDIRECTED Care 03/09/18 12:17 Ordered CBC W/O DIFF,HEMOGRAM [HEME] DAILY Lab 03/10/18 05:11 Ordered CBC W/O DIFF,HEMOGRAM [HEME] DAILY Lab 03/11/18 05:11 Ordered CBC W/O DIFF,HEMOGRAM [HEME] DAILY Lab 03/12/18 05:11 Ordered CBC W/O DIFF,HEMOGRAM [HEME] DAILY Lab 03/13/18 05:11 Ordered CBC W/O DIFF,HEMOGRAM [HEME] DAILY Lab 03/14/18 05:11 Ordered Drain Removal [OM.PC] Routine Oth 03/09/18 12:16 Ordered North Sutures Removal [RC] ROUTINE Oth 03/09/18 12:16 Ordered Medication Orders Acetaminophen (Tylenol) 325 - 650 mg PO Q4H PRN PRN Reason: Pain (moderate 4-6) Last Admin: 03/09/18 02:25 Dose: 650 mg Admin: 03/08/18 19:50 Dose: 650 mg Admin: 03/08/18 12:21 Dose: 650 mg Hydrocodone Bitart/Acetaminophen ([place] 325-5 Mg) 1 - 2 tab PO Q4H PRN PRN Reason: Pain (severe 7-10) Last Admin: 03/07/18 07:27 Dose: 1 tab Benzocaine/Menthol (Cepacol Sore Throat) 1 lozenge MUCMEM Q1H PRN PRN Reason: Sore Throat Last Admin: 02/28/18 09:30 Dose: 1 jamie Dimethicone/Zinc Oxide (Rash Relief-Zinc Oxide [place]) 0 gm TOP ASDIRECTED PRN PRN Reason: Rash Last Admin: 03/04/18 21:03 Dose: 1 applic Docusate Sodium (Colace) 100 mg PO BID [facility] Last Admin: 03/09/18 08:05 Dose: 100 mg Admin: 03/08/18 22:43 Dose: 100 mg Admin: 03/08/18 08:16 Dose: 100 mg Admin: 03/07/18 21:51 Dose: 100 mg Admin: 03/07/18 08:40 Dose: 100 mg Admin: 03/06/18 22:41 Dose: 100 mg Admin: 03/06/18 09:23 Dose: 100 mg Enoxaparin Sodium (Lovenox) 40 mg SUBCUT DAILY [facility] Last Admin: 03/09/18 08:06 Dose: 40 mg Admin: 03/08/18 08:16 Dose: 40 mg Admin: 03/07/18 08:40 Dose: 40 mg Admin: 03/06/18 08:22 Dose: 40 mg Admin: 03/05/18 08:39 Dose: 40 mg Admin: 03/04/18 08:57 Dose: 40 mg Admin: 03/03/18 09:41 Dose: 40 mg Admin: 03/02/18 10:05 Dose: 40 mg Admin: 03/01/18 08:29 Dose: 40 mg Ibuprofen (Motrin) 600 mg PO Q6H PRN PRN Reason: Pain (moderate 4-6) Last Admin: 03/09/18 08:05 Dose: 600 mg Admin: 03/08/18 23:35 Dose: 600 mg Admin: 03/08/18 17:46 Dose: 600 mg Admin: 03/08/18 08:13 Dose: 600 mg Admin: 03/07/18 23:58 Dose: 600 mg Admin: 03/07/18 18:06 Dose: 600 mg Admin: 03/07/18 12:09 Dose: 600 mg Admin: 03/06/18 19:02 Dose: 600 mg Admin: 03/06/18 08:52 Dose: 600 mg Admin: 03/05/18 17:01 Dose: 600 mg Levofloxacin (Levaquin) 500 mg PO Q24H [facility] Last Admin: 03/08/18 13:55 Dose: 500 mg Admin: 03/07/18 12:11 Dose: 500 mg Lorazepam (Ativan) 0.5 - 1 mg PO Q4H PRN PRN Reason: Anxiety Last Admin: 03/08/18 23:34 Dose: 0.5 mg Admin: 03/08/18 08:14 Dose: 0.5 mg Admin: 03/08/18 02:00 Dose: 0.5 mg Admin: 03/07/18 19:15 Dose: 0.5 mg Admin: 03/07/18 00:43 Dose: 0.5 mg Admin: 03/05/18 20:45 Dose: 0.5 mg Magnesium Hydroxide (Milk Of Magnesia) 30 ml PO BID [facility] Last Admin: 03/09/18 08:06 Dose: 30 ml Admin: 03/08/18 22:43 Dose: 30 ml Admin: 03/08/18 08:15 Dose: 30 ml Admin: 03/07/18 21:51 Dose: 30 ml Admin: 03/07/18 08:40 Dose: 30 ml Admin: 03/06/18 22:42 Dose: 30 ml Admin: 03/06/18 09:23 Dose: 30 ml Check Patch Daily (Trans Derm Scop) 1 each TOP DAILY [facility] Last Admin: 03/09/18 08:07 Dose: Admin: 03/08/18 08:17 Dose: 1 each Admin: 03/06/18 08:22 Dose: Admin: 03/05/18 08:40 Dose: Admin: 03/04/18 08:59 Dose: Admin: 03/03/18 10:14 Dose: Nystatin (Mycostatin) 5 ml PO QID [facility] Last Admin: 03/09/18 09:22 Dose: Not Given Admin: 03/09/18 06:31 Dose: Not Given Admin: 03/08/18 22:42 Dose: Not Given Admin: 03/08/18 17:30 Dose: Not Given Admin: 03/08/18 10:50 Dose: Not Given Admin: 03/08/18 06:07 Dose: Not Given Admin: 03/07/18 22:05 Dose: Not Given Admin: 03/07/18 15:15 Dose: 5 ml Pantoprazole Sodium (Protonix) 40 mg PO ACBREAKFAST [facility] Last Admin: 03/09/18 08:05 Dose: 40 mg Admin: 03/08/18 08:16 Dose: 40 mg Admin: 03/07/18 08:39 Dose: 40 mg Phenol (Phenaseptic Liquid) 0 ml PO Q1H PRN PRN Reason: Sore Throat Last Admin: 03/01/18 15:25 Dose: 2 sprays Scopolamine (Transderm-Scop) 1.5 mg TRDERM Q72H [facility] Last Admin: 03/09/18 08:06 Dose: 1.5 mg Admin: 03/06/18 08:23 Dose: 1.5 mg - Assessment Assessment (Free Text/Narrative):: She is doing well. Anxious. - Plan Plan (Free Text/Narrative):: I spoke with urology, Dr. Henson in [place]. Will remove her Ruiz on Wednesday which would be about two weeks. Will remove her BEN drain now. He will see her at about six weeks from surgery for a cystoscopy with BEN stent removal. Nurses working to help her prepare for discharge. D/C BEN. D/C skin north and apply Steri Strips. Convert Ruiz to a leg bag.
[2018-03-09] MEDS: LORazepam 0.5 MG Tab PO PRN (14:28)
[2018-03-10] MEDS: Ibuprofen 600 MG Tab PO PRN ×2 (02:23→13:48)
[2018-03-10] MEDS: LORazepam 0.5 MG Tab PO PRN ×2 (02:23→13:34)
[2018-03-10] MEDS: Nystatin Susp 100,000 Unit/ML 5 ML UD Cup PO SCH ×2 (06:07→13:34)
[2018-03-10] MEDS: Pantoprazole 40 MG Tab.CR PO SCH (07:36)
[2018-03-10] MEDS: Docusate Sodium 100 MG Cap PO SCH (08:42)
[2018-03-10] MEDS: [UNRECOGNIZED DRUG - REMARK] TOP SCH (08:42)
[2018-03-10] MEDS: Enoxaparin 40 MG/0.4 ML Syringe SUBCUT SCH (08:42)
[2018-03-10 12:36] VITALS: BP 130/76
[2018-03-10] MEDS: Levofloxacin 500 MG Tab PO SCH (13:34)
--- NOTE | 2018-03-19 17:17 | PCM.DCSUM1 ---
Discharge Summary - Hospital Course Free Text/Narrative:: This 62 year old white female was admitted on the evening of February 25, 2018 complaining of abdominal pain. CT of her abdomen and pelvis showed a contained perforation of sigmoid diverticulitis. She was admitted and given IV antibiotics. By two days later she noted increasing pain. A repeat CT of her abdomen and pelvis now showed free perforation into her abdomen. She was taken to the OR where a Henchey 3 sigmoid perforation was found treated with end left colostomy, Caraballo pouch and sigmoid resection. Her left ureter was disrupted and re-implanted in her bladder with a double J stent place. She was treated with Cipro and Flagyl IV. A PICC line was placed for TPN. The PICC failed ultimately but by then we were having bowel function through the ostomy. She was changed to oral antibiotics, but did not tolerate them. He Flagyl was discontinued and her Cirpro was changed to Levaquin based on cultures. She was ready to go home but felt she needed more care so on March 10 went to the halfway. The plan after speaking with urology was to remove her Ruiz catheter next week and have her see urology at six weeks from surgery to remove her double J stent. Her condition is good. Diagnosis: Stroke: No Modified Louis Scale: No Signif.Disability Despite Sympt.Able to Carry Out Usual Act./Duties Modified [place] Scale Score: 1 - Discharge Data Discharge Date: 03/10/18 Discharge Disposition: DC/Tfer to SNF 03 Condition: Stable - Discharge Diagnosis/Problem(s) (1) Acute diverticulitis of intestine SNOMED Code(s): 098946489 ICD Code: K57.92 - DVTRCLI OF INTEST, PART UNSP, W/O PERF OR ABSCESS W/O BLEED Status: Acute (2) Perforation bowel SNOMED Code(s): 01789208 ICD Code: K63.1 - PERFORATION OF INTESTINE (NONTRAUMATIC) Status: Acute - Patient Summary/Data Operative Procedure(s) Performed: Sigmoid resection, end left colostomy, Caraballo pouch, re-implant ureter. Consults: Consultations 02/26/18 01:44 Consult to Physician [CONS] Routine Consulting Provider: Nitin Arroyo Courtesy Call Completed to Consulting Physician: Yes Reason for Consult: diverticulitis 02/27/18 16:33 Respiratory Care Assess and Treatment [CONS] Routine Comment: Physician Instructions: Post-Op Pneumonia Prevention 03/02/18 11:54 Consult to Hospitality Host [CONS] Routine Comment: Physician Instructions: Quantity: Reason for Consult: orders for TPN 03/04/18 13:17 PT Evaluation and Treatment [CONS] Routine Please Evaluate and Treat. PT Reason for Consult: Strengthening This query below is only for informational purposes and is not editable. Admission Diagnosis/Problem: Diverticulitis of colon with perforation Hospital Course: See above narrative. - Patient Instructions Diet: Usual Diet as Tolerated Activity: No Lifting Over 10 Pounds, No Strenuous Activities (For five weeks. ) Driving, Other: Do not drive while taking narcotic pain medication. Showering/Bathing: May Shower Wound/Incision Care: Keep Operative Site/Wound Site Clean and Dry Notify Provider of: Fever, Increased Pain, Swelling and Redness, Drainage, Nausea and/or Vomiting - Discharge Plan Prescriptions/Med Rec: Acetaminophen/HYDROcodone [Gillette 325-5 MG] 1 - 2 tab PO Q4H PRN #30 tablet PRN Reason: Pain (Severe 7-10) Levofloxacin [Levaquin] 500 mg PO Q24H #3 tablet LORazepam [Ativan] 0.5 mg PO TID #30 tablet Home Medications: Home Meds Allopurinol [Zyloprim] 100 mg PO BID 08/30/13 [History] Metoprolol Succinate [Toprol XL] 50 mg PO DAILY 08/30/13 [History] Levothyroxine Sodium [Synthroid] 25 mcg PO DAILY 11/19/14 [History] Multivit-Min/Iron Fum/Folic AC [Vayvw-Zlbnyem-Egneiiqq Tablet] 1 each PO DAILY 09/29/17 [History] Celecoxib 200 mg PO DAILY 02/25/18 [History] Acetaminophen [Tylenol] 325 - 650 mg PO Q4H PRN tablet 03/10/18 [Rx] Acetaminophen/HYDROcodone [Gillette 325-5 MG] 1 - 2 tab PO Q4H PRN #30 tablet 03/10 [Rx] Docusate Sodium [Colace] 100 mg PO BID cap 03/10/18 [Rx] Ibuprofen [Motrin] 600 mg PO Q6H PRN tablet 03/10/18 [Rx] LORazepam [Ativan] 0.5 mg PO TID #30 tablet 03/10/18 [Rx] Levofloxacin [Levaquin] 500 mg PO Q24H #3 tablet 03/10/18 [Rx] Forms: ED Department Discharge Referrals: Nitin Arroyo MD [Physician] - (Come to [place] clinic in AM to remove Ruiz and stay until she voids Wednesday, March 14, 2018.) Channing Noel MD [Primary Care Provider] - - Discharge Summary/Plan Comment DC Time >30 min.: Yes Discharge Summary/Plan Comment: See above narrative. - Patient Data Vitals - Most Recent: Last Vital Signs Temp 97.7 F 03/10/18 12:34 Pulse 88 03/10/18 12:34 Resp 16 03/10/18 12:34 BP 130/76 03/10/18 12:34 Pulse Ox 96 03/10/18 12:34 Weight - Most Recent: 421 lb 1.326 oz Med Orders - Current: Current Medications Discontinued Medications Acetaminophen (Tylenol) 325 - 650 mg PO Q4H PRN PRN Reason: Pain (moderate 4-6) Last Admin: 03/09/18 22:55 Dose: 650 mg Hydrocodone Bitart/Acetaminophen (Gillette 325-5 Mg) 1 - 2 tab PO Q4H PRN PRN Reason: Pain (severe 7-10) Last Admin: 03/07/18 07:27 Dose: 1 tab Benzocaine/Menthol (Cepacol Sore Throat) 1 lozenge MUCMEM Q1H PRN PRN Reason: Sore Throat Last Admin: 02/28/18 09:30 Dose: 1 jamie Bupivacaine HCl (Marcaine 0.5%) Confirm Administered Dose 50 ml .ROUTE .STK-MED ONE Stop: 03/02/18 06:44 Ciprofloxacin (Ciprofloxacin Hcl) 500 mg PO BID@1100,2300 ALLAN Last Admin: 03/06/18 22:41 Dose: 500 mg Dexamethasone (Dexamethasone) Confirm Administered Dose 4 mg .ROUTE .STK-MED ONE Stop: 02/27/18 14:10 Dimethicone/Zinc Oxide (Rash Relief-Zinc Oxide Helper) 0 gm TOP ASDIRECTED PRN PRN Reason: Rash Last Admin: 03/04/18 21:03 Dose: 1 applic Diphenhydramine HCl (Benadryl) 50 mg IVPUSH ONETIME ONE Stop: 02/25/18 21:43 Last Admin: 02/25/18 21:44 Dose: 50 mg Diphenhydramine HCl (Benadryl) Confirm Administered Dose 50 mg .ROUTE .STK-MED ONE Stop: 02/25/18 21:44 Last Admin: 02/25/18 21:49 Dose: Not Given Docusate Sodium (Colace) 100 mg PO BID PRN PRN Reason: Constipation Docusate Sodium (Colace) 100 mg PO BID [facility] Last Admin: 03/10/18 08:42 Dose: 100 mg Enoxaparin Sodium (Lovenox) 40 mg SUBCUT Q24H [facility] Last Admin: 02/27/18 10:17 Dose: 40 mg Enoxaparin Sodium (Lovenox) 40 mg SUBCUT DAILY [facility] Last Admin: 03/10/18 08:42 Dose: 40 mg Fentanyl (Sublimaze) Confirm Administered Dose 250 mcg .ROUTE .STK-MED ONE Stop: 02/27/18 14:10 Fentanyl (Sublimaze) Confirm Administered Dose 250 mcg .ROUTE .STK-MED ONE Stop: 02/27/18 14:54 Fentanyl (Sublimaze) Confirm Administered Dose 100 mcg .ROUTE .STK-MED ONE Stop: 03/02/18 07:36 Fentanyl (Sublimaze) 10 - 25 mcg IVPUSH Q2H PRN PRN Reason: SEVERE PAIN Fentanyl Citrate (Fentanyl In Ns 20 Mcg/Ml 30 Ml Patroller) 0 mcg IV ASDIRECTED PRN; Protocol PRN Reason: Pain Last Admin: 02/26/18 12:51 Dose: 600 mcg Fentanyl Citrate (Fentanyl In Ns 20 Mcg/Ml 30 Ml Patroller) 0 mcg IV ASDIRECTED PRN; Protocol PRN Reason: Pain Last Admin: 03/04/18 11:14 Dose: 600 mcg Glycopyrrolate (Robinul) Confirm Administered Dose 1 mg .ROUTE .STK-MED ONE Stop: 02/27/18 14:10 Hydromorphone HCl (Dilaudid) 0.5 mg IVPUSH ONETIME ONE Stop: 02/25/18 21:14 Last Admin: 02/25/18 21:33 Dose: 0.5 mg Sodium Chloride (Normal Saline) 1,000 mls @ 999 mls/hr IV ASDIRECTED [facility] Last Admin: 02/25/18 21:28 Dose: 999 mls/hr Sodium Chloride (Normal Saline) 80 mls @ 3 mls/sec IV ASDIRECTED [facility] Last Admin: 02/25/18 22:39 Dose: 3 mls/sec Ciprofloxacin/Dextrose 400 mg/ (Premix) 200 mls @ 200 mls/hr IV ONETIME ONE Stop: 02/26/18 01:18 Last Admin: 02/26/18 02:19 Dose: 200 mls/hr Metronidazole 500 mg/ Premix 100 mls @ 100 mls/hr IV ONETIME ONE Stop: 02/26/18 01:18 Last Admin: 02/26/18 00:54 Dose: 100 mls/hr Sodium Chloride (Normal Saline) 1,000 mls @ 125 mls/hr IV ASDIRECTED [facility] Last Admin: 02/26/18 08:11 Dose: 125 mls/hr Sodium Chloride (Normal Saline) 1,000 mls @ 125 mls/hr IV ASDIRECTED [facility] Last Admin: 02/27/18 05:58 Dose: 125 mls/hr Ciprofloxacin/Dextrose 400 mg/ (Premix) 200 mls @ 200 mls/hr IV Q12H [facility] Last Admin: 02/26/18 06:13 Dose: Not Given Metronidazole 500 mg/ Premix 100 mls @ 100 mls/hr IV Q8H [facility] Last Admin: 02/26/18 06:14 Dose: Not Given Ciprofloxacin/Dextrose 400 mg/ (Premix) 200 mls @ 200 mls/hr IV Q12H [facility] Last Admin: 03/06/18 14:18 Dose: 200 mls/hr Metronidazole 500 mg/ Premix 100 mls @ 100 mls/hr IV Q8H [facility] Last Admin: 03/06/18 08:22 Dose: 100 mls/hr Magnesium Sulfate 2 gm/ Premix 50 mls @ 25 mls/hr IV ONETIME ONE Stop: 02/27/18 10:59 Last Admin: 02/27/18 10:26 Dose: 25 mls/hr Sodium Chloride (Normal Saline) 81 mls @ 3.5 mls/sec IV ASDIRECTED [facility] Stop: 02/27/18 23:00 Last Admin: 02/27/18 12:09 Dose: 3.5 mls/sec Lactated Ringer's (Ringers, Lactated) Confirm Administered Dose 1,000 mls @ as directed .ROUTE .[facility] ONE Stop: 02/27/18 15:22 Potassium Chloride/Dextrose/Sod Cl (D5 1/2 Ns W/ 20 Meq/L Kcl) 1,000 mls @ 150 mls/hr IV ASDIRECTED [facility] Last Admin: 02/28/18 00:15 Dose: 150 mls/hr Potassium Chloride/Dextrose/Sod Cl (D5 1/2 Ns W/ 20 Meq/L Kcl) 1,000 mls @ 0 mls/hr IV ASDIRECTED [facility] Last Admin: 03/03/18 23:22 Dose: 75 mls/hr Sodium Chloride (Normal Saline) 500 mls @ 500 mls/hr IV .BOLUS ONE Stop: 03/01/18 20:51 Last Admin: 03/01/18 20:35 Dose: 500 mls/hr Multivitamins/Minerals 10 ml/Chromium/Copper/Manganese/Seleni/Zn 1 ml/ Amino Ac/ Electrol/Dextrose/Calcium 1,011 mls @ 80 mls/hr IV .BY DURATION [facility] Last Admin: 03/04/18 17:11 Dose: 80 mls/hr Amino Ac/Electrol/Dextrose/Calcium (Clinimix E 15) 1,000 mls @ 80 mls/hr IV .BY DURATION [facility] Last Admin: 03/05/18 09:45 Dose: Not Given Ibuprofen (Motrin) 600 mg PO Q6H PRN PRN Reason: Pain (moderate 4-6) Last Admin: 03/10/18 13:48 Dose: 600 mg Iopamidol (Isovue-300 (61%)) 132 ml IV . DIRECTED [facility] Last Admin: 02/25/18 22:39 Dose: 132 ml Iopamidol (Isovue-300 (61%)) 136 ml IV . DIRECTED PRN PRN Reason: RADIOLOGY EXAM Stop: 02/28/18 10:26 Last Admin: 02/27/18 12:08 Dose: 136 ml Levofloxacin (Levaquin) 500 mg PO Q24H [facility] Last Admin: 03/10/18 13:34 Dose: 500 mg Lidocaine/Epinephrine (Xylocaine 1% With Epinephrine 1:100,000) Confirm Administered Dose 50 ml .ROUTE .STK-MED ONE Stop: 03/02/18 06:44 Lorazepam (Ativan) 2 mg IVPUSH Q4H PRN PRN Reason: Anxiety Last Admin: 02/27/18 01:16 Dose: 1 mg Lorazepam (Ativan) Confirm Administered Dose 2 mg .ROUTE .STK-MED ONE Stop: 02/27/18 01:14 Last Admin: 02/27/18 02:18 Dose: Not Given Lorazepam (Ativan) 1 mg IVPUSH Q4H PRN PRN Reason: Anxiety Last Admin: 03/04/18 11:59 Dose: 1 mg Lorazepam (Ativan) 0.5 - 1 mg PO Q4H PRN PRN Reason: Anxiety Last Admin: 03/10/18 13:34 Dose: 0.5 mg Lorazepam (Ativan) 0.5 - 1 mg IVPUSH Q4H PRN PRN Reason: Anxiety Magnesium Hydroxide (Milk Of Magnesia) 30 ml PO BID [facility] Last Admin: 03/09/18 08:06 Dose: 30 ml Magnesium Oxide (Magnesium Oxide) 400 mg PO BID [facility] Last Admin: 02/27/18 09:01 Dose: 400 mg Methylprednisolone Sodium Succinate (Solu-Medrol) 125 mg IVPUSH ONETIME ONE Stop: 02/25/18 21:43 Last Admin: 02/25/18 21:45 Dose: 125 mg Methylprednisolone Sodium Succinate (Solu-Medrol) Confirm Administered Dose 125 mg .ROUTE .STK-MED ONE Stop: 02/25/18 21:44 Last Admin: 02/25/18 21:49 Dose: Not Given Metoclopramide HCl (Reglan) 10 mg IVPUSH Q6H PRN PRN Reason: Nausea Last Admin: 03/05/18 20:09 Dose: 10 mg [facility]) [facility] Last Admin: 03/07/18 08:39 Dose: 500 mg Midazolam HCl (Versed 1 Mg/Ml) Confirm Administered Dose 2 mg .ROUTE .STK-MED ONE Stop: 03/02/18 07:36 Morphine Sulfate (Morphine) 1 mg IVPUSH Q1H PRN PRN Reason: Abdominal Pain Last Admin: 02/26/18 06:17 Dose: 1 mg Morphine Sulfate (Morphine) Confirm Administered Dose 2 mg .ROUTE .STK-MED ONE Stop: 02/26/18 06:16 Last Admin: 02/26/18 06:35 Dose: Not Given Naloxone HCl (Narcan) 0.1 mg IVPUSH Q2M PRN PRN Reason: Respiratory Distress Naloxone HCl (Narcan) 0.4 mg IVPUSH Q2M PRN PRN Reason: Respiratory Distress Neostigmine Methylsulfate (Neostigmine) Confirm Administered Dose 5 mg .ROUTE .STK-MED ONE Stop: 02/27/18 14:10 Check Patch Daily (Trans Derm Scop) 1 each TOP DAILY PRN PRN Reason: patch Check Patch Daily (Trans Derm Scop) 1 each TOP DAILY [facility] Last Admin: 03/10/18 08:42 Dose: Not Given Non-Formulary Medication (Total Parenteral Nutrition, Central) 0 ml IV DAILY [facility] Stop: 03/04/18 22:00 Last Admin: 03/04/18 14:14 Dose: Not Given Nystatin (Mycostatin) 5 ml PO QID [facility] Last Admin: 03/10/18 13:34 Dose: Not Given Ondansetron HCl (Zofran) 4 mg IVPUSH ONETIME ONE Stop: 02/25/18 21:14 Last Admin: 02/25/18 21:30 Dose: 4 mg Ondansetron HCl (Zofran) 4 mg IV Q4H PRN PRN Reason: Nausea/Vomiting Last Admin: 03/05/18 02:54 Dose: 4 mg Ondansetron HCl (Zofran) Confirm Administered Dose 4 mg .ROUTE .STK-MED ONE Stop: 02/27/18 14:10 Oxycodone/Acetaminophen (Percocet 325-5 Mg) 1 - 2 tab PO Q4H PRN PRN Reason: Pain (moderate 4-6) Last Admin: 03/05/18 11:06 Dose: 2 tab Pantoprazole Sodium (Protonix Iv) 40 mg IVPUSH Q24H [facility] Last Admin: 03/06/18 05:15 Dose: 40 mg Pantoprazole Sodium (Protonix Iv) Confirm Administered Dose 40 mg .ROUTE .STK -MED ONE Stop: 02/27/18 06:20 Last Admin: 02/27/18 06:28 Dose: Not Given Pantoprazole Sodium (Protonix) 40 mg PO ACBREAKFAST [facility] Last Admin: 03/10/18 07:36 Dose: 40 mg Phenol (Phenaseptic Liquid) 0 ml PO Q1H PRN PRN Reason: Sore Throat Last Admin: 03/01/18 15:25 Dose: 2 sprays Propofol (Diprivan 20 Ml) Confirm Administered Dose 200 mg .ROUTE .STK-MED ONE Stop: 02/27/18 14:10 Propofol (Diprivan 20 Ml) Confirm Administered Dose 200 mg .ROUTE .STK-MED ONE Stop: 03/02/18 07:36 Rocuronium [place] (Zemuron) Confirm Administered Dose 50 mg .ROUTE .STK-MED ONE Stop: 02/27/18 14:10 Scopolamine (Transderm-Scop) 1.5 mg TRDERM Q72H PRN PRN Reason: Nausea Last Admin: 03/03/18 16:07 Dose: 1.5 mg Scopolamine (Transderm-Scop) 1.5 mg TRDERM Q72H ALLAN Last Admin: 03/09/18 08:06 Dose: 1.5 mg Sodium Chloride (Saline Flush) 10 ml FLUSH ASDIRECTED PRN PRN Reason: Keep Vein Open Last Admin: 02/25/18 22:39 Dose: 10 ml
== END 2018-03-10 14:10 | DRG 330 ==
LOC: JP.ED 20:22 → JP.ICU 02-26 01:44 → JP.MS 03-01 09:20
PROVIDERS: ADMIT Family Medicine; ATTEND Internal Medicine
PROC: 0DTN0ZZ Resection of Sigmoid Colon, Open Approach (ICD-10-PCS; principal; 2018-02-27)
PROC: 0D1N0Z4 Bypass Sigmoid Colon to Cutaneous, Open Approach (ICD-10-PCS; 2018-02-27)
PROC: 0T170ZB Bypass Left Ureter to Bladder, Open Approach (ICD-10-PCS; 2018-02-27)
PROC: 0D9W0ZX Drainage of Peritoneum, Open Approach, Diagnostic (ICD-10-PCS; 2018-02-27)
PROC: 02H633Z Insertion of Infusion Device into Right Atrium, Percutaneous Approach (ICD-10-PCS; 2018-03-01)
PROC: B244ZZZ Ultrasonography of Right Heart (ICD-10-PCS; 2018-03-01)
PROC: 0WQF0ZZ Repair Abdominal Wall, Open Approach (ICD-10-PCS; 2018-03-02)
DX: K57.20 Diverticulitis of large intestine with perforation and abscess without bleeding (principal); N28.89 Other specified disorders of kidney and ureter; N32.89 Other specified disorders of bladder; Z48.1 Encounter for planned postprocedural wound closure; I10 Essential (primary) hypertension; E03.9 Hypothyroidism, unspecified; R10.32 Left lower quadrant pain; T40.2X5A Adverse effect of other opioids, initial encounter; Y92.238 Other place in hospital as the place of occurrence of the external cause; R09.89 Other specified symptoms and signs involving the circulatory and respiratory systems; F41.9 Anxiety disorder, unspecified; H54.7 Unspecified visual loss; R12 Heartburn; E66.9 Obesity, unspecified; Z90.710 Acquired absence of both cervix and uterus; Z88.1 Allergy status to other antibiotic agents; Z88.5 Allergy status to narcotic agent; Z88.0 Allergy status to penicillin; Z91.09 Other allergy status, other than to drugs and biological substances; Z68.34 Body mass index [BMI] 34.0-34.9, adult
CPT/HCPCS: 36415; 74177; 80053; 81001; 83690; 85025; 86140; 96361; 96365; 96375; 99284; 99285; J1170; J1200; J2405; J2930; J7030 ×2; J7050 ×3; 71046; 71046-26; 74018; 74018-26; 80048; 82962; 83735; 84100; 85027; 86850; 86900; 86901; 86920; 86922; 87070; 87075; 87077; 87186; 87205; 88307; 94762; 97116-GP; 97162-GP; 97530-GP; A9270-GY; C1874; C9113; J0744; J1100; J1650; J2060; J2250; J2270; J2704; J2710; J2765; J3010; J3475; J3480; J7040; J7120

== ENCOUNTER 2018-06-05 12:34 | Emergency (ER) | payer MEDICARE, BC ==
[2018-06-05 12:57] VITALS: BP 186/98
--- NOTE | 2018-06-05 13:36 | EDM.PDOC ---
ED HPI GENERAL MEDICAL PROBLEM - General Chief Complaint: Abdominal Pain Stated Complaint: BURNING LEFT LOWER ABDOMEN Time Seen by Provider: 06/05/18 13:01 Source of Information: Reports: Patient History Limitations: Reports: No Limitations - History of Present Illness INITIAL COMMENTS - FREE TEXT/NARRATIVE: 62 yo female 2 months post stoma placement do to diverticulitis with abscess. this morning burning sensation at stoma site. she has had increase in acidic food over the last few days. she changed stoma base yesterday without difficulty. has appt with surgeon tomorrow. generally feels well afebrile Left Lower Abdominal Pain Score (Numeric/FACES): 2 - Related Data Allergies Allergy/AdvReac Type Severity Reaction Status Date / Time Penicillins Allergy Severe Difficulty Verified 06/05/18 12:52 Breathing hydromorphone [From Dilaudid] Allergy Intermediate Airway Verified 06/05/18 12: 52 Tightness alcohol Allergy Swelling Verified 06/05/18 12:52 tetracycline Allergy Rash Verified 06/05/18 12:52 Home Meds: Home Meds Allopurinol [Zyloprim] 100 mg PO BID 08/30/13 [History] Metoprolol Succinate [Toprol XL] 50 mg PO DAILY 08/30/13 [History] Levothyroxine Sodium [Synthroid] 25 mcg PO DAILY 11/19/14 [History] Multivit-Min/Iron Fum/Folic AC [Zygnj-Viskrim-Aotpbfqq Tablet] 1 each PO DAILY 09/29/17 [History] Celecoxib 200 mg PO DAILY 02/25/18 [History] Acetaminophen [Tylenol] 325 - 650 mg PO Q4H PRN tablet 03/10/18 [Rx] Docusate Sodium [Colace] 100 mg PO BID cap 03/10/18 [Rx] Ibuprofen [Motrin] 600 mg PO Q6H PRN tablet 03/10/18 [Rx] LORazepam [Ativan] 0.5 mg PO TID #30 tablet 03/10/18 [Rx] Past Medical History HEENT History: Reports: Impaired Vision Other HEENT History: readers Cardiovascular History: Reports: Hypertension Gastrointestinal History: Reports: Chronic Constipation, Diverticulosis Genitourinary History: Reports: Other (See Below) Other Genitourinary History: bladder TRIAL MGR History: Reports: Endometriosis, Musculoskeletal History: Reports: None, RA Neurological History: Reports: Concussion, Head Trauma Psychiatric History: Reports: Anxiety Endocrine/Metabolic History: Reports: Hypothyroidism, Obesity/BMI 30+ Dermatologic History: Reports: None - Infectious Disease History Infectious Disease History: Reports: Chicken Pox, Measles, Mumps, Pertussis ( Whooping Cough), Shingles - Past Surgical History Head Surgeries/Procedures: Reports: None HEENT Surgical History: Reports: LASIK, Tonsillectomy Cardiovascular Surgical History: Reports: None GI Surgical History: Reports: Cholecystectomy, Colostomy, EGD Other GI Surgeries/Procedures: Yvonne Fundoplication Female Surgical History: Reports: Breast Biopsy, Breast Reduction, Hysterectomy Endocrine Surgical History: Reports: None Neurological Surgical History: Reports: Other (See Below) Other Neurological Surgeries/Procedures: rods in lower back Musculoskeletal Surgical History: Reports: Carpal Tunnel, Other (See Below) Other Musculoskeletal Surgeries/Procedures:: 4 rods in back Dermatological Surgical History: Reports: Skin Biopsy Social & Family History - Family History Family Medical History: Noncontributory - Tobacco Use Smoking Status *Q: Never Smoker Second Hand Smoke Exposure: No - Caffeine Use Caffeine Use: Reports: Coffee, Soda - Recreational Drug Use Recreational Drug Use: No ED ROS GENERAL - Review of Systems Review Of Systems: See Below Constitutional: Denies: Fever, Chills, Fatigue ED EXAM, GI/ABD - Physical Exam Exam: See Below Exam Limited By: No Limitations General Appearance: Alert, WD/WN, No Apparent Distress Respiratory/Chest: No Respiratory Distress, Lungs Clear, Normal Breath Sounds, Chest Non-Tender. No: Crackles, Rhonchi, Wheezing Cardiovascular: Regular Rate, Rhythm, No Murmur GI/Abdominal Exam: Other (beefy red stoma without surrounding irriation, stool brown and soft without black or red. mild tenderness around stoma site, rest of ABD without tenderness) Course - Vital Signs Last Recorded V/S: Last Vital Signs Temp 36.3 C 06/05/18 12:57 Pulse 59 L 06/05/18 12:57 Resp 18 06/05/18 12:57 BP 186/98 H 06/05/18 12:57 Pulse Ox 97 06/05/18 12:57 - Orders/Labs/Meds Labs: Laboratory Tests 06/05/18 Range/Units 13:32 WBC 7.7 (4.5-11.0) K/uL RBC 4.41 (3.30-5.50) M/uL Hgb 12.4 (12.0-15.0) g/dL Hct 40.0 (36.0-48.0) % MCV 91 (80-98) fL MCH 28 (27-31) pg MCHC 31 L (32-36) % Plt Count 346 (150-400) K/uL Neut % (Auto) 55 (36-66) % Lymph % (Auto) 34 (24-44) % Holmes % (Auto) 7 H (2-6) % Eos % (Auto) 3 (2-4) % Baso % (Auto) 1 (0-1) % Meds: Medications Discontinued Medications Generic Name Dose Route Start Last Admin Trade Name Freq PRN Reason Stop Dose Admin Bacitracin 1 dose 06/05/18 14:05 Bacitracin Oint 1 Gm TOP 06/05/18 14:06 ONETIME ONE Lidocaine/Epinephrine 3 ml 06/05/18 14:05 Xylocaine 1% With Epinephrine 1:100,000 INFILT 06/05/18 14:06 ONETIME ONE Departure - Departure Time of Disposition: 14:07 Disposition: Home, Self-Care 01 Condition: Good Clinical Impression: Other stomatitis and mucositis (ulcerative) - Discharge Information *PRESCRIPTION DRUG MONITORING PROGRAM REVIEWED*: Not Applicable *COPY OF PRESCRIPTION DRUG MONITORING REPORT IN PATIENT LEONEL: Not Applicable Instructions: Stomatitis, [id number] Referrals: Channing Noel MD [Primary Care Provider] - Forms: ED Department Discharge Additional Instructions: increase water intake to 1.5 liter per day decrease acidic food intake keep appt with surgeon tomorrow
[2018-06-05] MEDS ORDERED: Bacitracin Oint 1 GM U/D Packet TOP ONE (14:05)
[2018-06-05] MEDS ORDERED: Lidocaine 1% with EPINEPHrine 1:100,000 50 ML MDV INFILT ONE (14:05)
== END 2018-06-05 14:22 | disposition home or self-care (01) ==
LOC: JP.ED 12:34
DX: K12.1 Other forms of stomatitis (principal); K12.30 Oral mucositis (ulcerative), unspecified; I10 Essential (primary) hypertension; E03.9 Hypothyroidism, unspecified; F41.9 Anxiety disorder, unspecified; Z79.899 Other long term (current) drug therapy; Z88.0 Allergy status to penicillin; Z88.1 Allergy status to other antibiotic agents; Z88.8 Allergy status to other drugs, medicaments and biological substances
CPT/HCPCS: 36415; 85025; 99284

== ENCOUNTER 2019-04-25 06:58 | Day surgery (SDC) | payer MEDICARE, BC ==
[2019-04-25] MEDS ORDERED: Sodium Chloride 0.9% 1,000 ML IV SCH (07:45)
[2019-04-25] MEDS ORDERED: Propofol 200 MG/20 ML SDV ONE (08:09)
[2019-04-25] MEDS ORDERED: fentaNYL 100 MCG/2 ML SDV ONE (08:10)
[2019-04-25] MEDS ORDERED: Midazolam 1 MG/ML 2 ML SDV ONE (08:10)
[2019-04-25 09:51] VITALS: BP 141/92; PULSE 58
--- NOTE | 2019-04-25 13:17 | OR ---
DATE OF PROCEDURE: 04/25/2019 SURGEON: Gamaliel Levy MD PROCEDURE: Colonoscopy. FINDINGS: Normal colonoscopy. COMPLICATIONS: None. COVERAGE SPECIALIST: None. ANESTHESIA: MAC. PREOPERATIVE DIAGNOSIS: History of diverticulitis/right quadrant abdominal pain. POSTOPERATIVE DIAGNOSIS: History of diverticulitis/right quadrant abdominal pain. RISKS: Risks, benefits, alternatives, and limitations including, but not limited to infection, bleeding, and perforation were explained to the patient and wished to proceed. PROCEDURE IN DETAIL: The patient was placed in a left lateral decubitus position. Digital rectal exam was performed without abnormality. Scope was introduced and advanced atraumatically into the small bowel. This was noted to be normal. No abnormalities in the colon. The anastomosis would be described as normal without any evidence of abnormality. No abnormalities on retroflexion. The patient tolerated the procedure well. Gamaliel Levy MD /[id number]
== END 2019-04-25 09:54 | disposition home or self-care (01) ==
LOC: JP.SDS 06:58
PROVIDERS: ATTEND Surgery
DX: R10.11 Right upper quadrant pain (principal); I10 Essential (primary) hypertension; E66.9 Obesity, unspecified; E03.9 Hypothyroidism, unspecified; K21.9 Gastro-esophageal reflux disease without esophagitis; M10.9 Gout, unspecified; Z87.19 Personal history of other diseases of the digestive system; Z68.34 Body mass index [BMI] 34.0-34.9, adult
CPT/HCPCS: 45378; J2250; J2704; J3010; J7030

== ENCOUNTER 2021-07-13 07:00 | Emergency (ER) | payer MEDICARE, BC ==
[2021-07-13 07:20] VITALS: BP 182/81; PULSE 78
--- NOTE | 2021-07-13 07:43 | EDM.PDOC ---
ED HPI GENERAL MEDICAL PROBLEM - General Chief Complaint: Respiratory Problem Stated Complaint: COUGH,RT EAR CAN'T HEAR Time Seen by Provider: 07/13/21 07:25 Source of Information: Reports: Patient, Old Records History Limitations: Reports: No Limitations - History of Present Illness INITIAL COMMENTS - FREE TEXT/NARRATIVE: 66 yo unvaccinated for Covid female presents with a cough, mild SOB and R ear plugging. She recently had her R ear flushed in the [facility] and says that made her hearing worse. She denies fever or cough productivity. Onset: Gradual Onset Date: 07/12/21 Duration: Day(s): (1), Constant Location: Reports: Face (R ear), Chest Quality: Reports: Other (denies pain) Severity: Mild Improves with: Reports: None Worsens with: Reports: Other (breathing worse with time, ear plugging has been constant) Context: Reports: Other (See HPI) Associated Symptoms: Reports: Cough, Shortness of Breath. Denies: Fever/Chills Treatments TILE MOLDER HAND: Reports: Other (see below) Other Treatments TILE MOLDER HAND: zyrtec - Related Data Allergies Allergy/AdvReac Type Severity Reaction Status Date / Time Penicillins Allergy Severe Difficulty Verified 05/17/19 10:45 Breathing hydromorphone [From Dilaudid] Allergy Intermediate Airway Verified 05/17/19 10:45 Tightness alcohol Allergy Swelling Verified 05/17/19 10:45 levofloxacin Allergy Other Verified 05/17/19 10:45 mirabegron [From Myrbetriq] Allergy Other Verified 05/17/19 10:45 tetracycline Allergy Rash Verified 05/17/19 10:45 tomato Allergy Rash Verified 05/17/19 10:45 magnesium hydroxide AdvReac Nausea and Verified 05/17/19 10:45 [From Milk of Magnesia] Vomiting magnesium hydroxide AdvReac Nausea and Verified 05/17/19 10:45 [From Milk of Magnesia] Vomiting Home Meds: Home Meds Metoprolol Succinate [Toprol XL] 50 mg PO DAILY 08/30/13 [History] allopurinoL [Zyloprim] 100 mg PO DAILY 08/30/13 [History] Levothyroxine Sodium [Synthroid] 12.5 mcg PO DAILY 11/19/14 [History] Multivit-Min/Iron Fum/Folic AC [Qokpy-Oabiiwe-Fmcbcxpw Tablet] 1 each PO DAILY 09/29/17 [History] polyethylene glycoL 3350 [MiraLAX] 15 gm PO DAILY 08/10/18 [History] LORazepam [Ativan] 0.5 mg PO DAILY PRN 04/21/19 [History] Omeprazole 40 mg PO ACBREAKFAST 04/21/19 [History] Cholecalciferol (Vitamin D3) [Vitamin D3] 1,000 unit PO DAILY 04/25/19 [History] Elderberry Fruit/Honey [Little Remedies Cough-Immune] 1 tab PO DAILY 04/25/19 [History] Inulin/Chromium Picolinate [Fiber Gummies] 2 each PO DAILY 04/25/19 [History] Docusate Sodium [Colace] 100 mg PO DAILY 05/17/19 [History] Past Medical History HEENT History: Reports: Impaired Vision Other HEENT History: readers Cardiovascular History: Reports: Hypertension Gastrointestinal History: Reports: Cholelithiasis, Chronic Constipation, Diverticulosis, GERD, Hiatal Hernia Genitourinary History: Reports: UTI, Recurrent, Other (See Below) Other Genitourinary History: bladder punctured in surgery, "stent placed and then removed at later time" BLACK PICKLER History: Reports: Endometriosis, Musculoskeletal History: Reports: Back Pain, Chronic, Fracture, Gout, RA Neurological History: Reports: Concussion, Head Trauma Psychiatric History: Reports: Anxiety Endocrine/Metabolic History: Reports: Hypothyroidism, Obesity/BMI 30+ Hematologic History: Reports: Blood Transfusion(s) Dermatologic History: Reports: None - Infectious Disease History Infectious Disease History: Reports: Chicken Pox, Measles, Mumps, Pertussis (Whooping Cough), Rubella, Shingles - Past Surgical History Head Surgeries/Procedures: Reports: None HEENT Surgical History: Reports: LASIK, Oral Surgery, Tonsillectomy, Other (See Below) Other HEENT Surgeries/Procedures: 2 PULLED JULY 2018 Cardiovascular Surgical History: Reports: None Respiratory Surgical History: Reports: None GI Surgical History: Reports: Cholecystectomy, Colostomy, EGD, Yvonne Fundoplication, Other (See Below) Other GI Surgeries/Procedures: Yvonne Fundoplication, colostomy takedown Female Surgical History: Reports: Breast Biopsy, Breast Reduction, Hysterectomy, Other (See Below) Other Female Surgeries/Procedures: CYSTOCELE, RECTOCELE Endocrine Surgical History: Reports: None Neurological Surgical History: Reports: Other (See Below) Other Neurological Surgeries/Procedures: rods in lower back Musculoskeletal Surgical History: Reports: Carpal Tunnel, Other (See Below) Other Musculoskeletal Surgeries/Procedures:: 4 rods in back; ori/pins in toe Dermatological Surgical History: Reports: Skin Biopsy Social & Family History - Family History Family Medical History: No Pertinent Family History - Caffeine Use Caffeine Use: Reports: Coffee, Soda ED ROS GENERAL - Review of Systems Review Of Systems: See Below Constitutional: Reports: Malaise HEENT: Reports: Hearing Loss (R ear) Respiratory: Reports: Shortness of Breath, Cough. Denies: Wheezing, Pleuritic Chest Pain, Sputum, Hemoptysis Cardiovascular: Reports: No Symptoms Endocrine: Reports: No Symptoms GI/Abdominal: Reports: No Symptoms : Reports: No Symptoms Musculoskeletal: Reports: No Symptoms Skin: Reports: No Symptoms Neurological: Reports: No Symptoms ED EXAM, GENERAL - Physical Exam Exam: See Below Exam Limited By: No Limitations General Appearance: Alert, WD/WN, No Apparent Distress Eye Exam: Bilateral Eye: Normal Inspection Ears: Other (L ear normal, R ear obstructed by cerumen) Ear Exam: Left Ear: TM normal, Bilateral Ear: Auricle Normal, Canal Normal, Other (R ear plugged by wax) Nose: Normal Inspection, No Blood Throat/Mouth: Normal Inspection Head: Atraumatic, Normocephalic Neck: Normal Inspection Respiratory/Chest: No Respiratory Distress, No Accessory Muscle Use, Crackles (rare) Cardiovascular: Regular Rate, Rhythm, No Edema GI/Abdominal: Normal Bowel Sounds, Soft, Non-Tender, No Distention Back Exam: Normal Inspection Extremities: Normal Inspection, Normal Range of Motion, Non-Tender, No Pedal Edema Neurological: Alert, Oriented, CN II-XII Intact, Normal Cognition, No Motor/Sensory Deficits Psychiatric: Normal Affect, Normal Mood Skin Exam: Warm, Dry, Intact, Normal Color, No Rash ED RESPIRATORY PROCEDURES - Additional/Other Procedure(s) Other (Free Text) Procedure(s): R ear irrigated with warm water washing out a lot of wax with hearing restored. Course - Vital Signs Text/Narrative:: pulse ox recheck at 96% RA Last Recorded V/S: Last Vital Signs Temp 36.7 C 07/13/21 07:22 Pulse 78 07/13/21 07:22 Resp 17 07/13/21 07:22 BP 182/81 H 07/13/21 07:22 Pulse Ox 92 L 07/13/21 07:22 - Orders/Labs/Meds Orders: Active Orders 24 hr Category Date Time Status Ear Irrigation [RC] ASDIRECTED Care 07/13/21 07:38 Active Chest 2V [CR] Stat Exams 07/13/21 07:49 Stop Req Labs: Laboratory Tests 07/13/21 07/13/21 07/13/21 Range/Units 07:22 08:01 08:01 WBC 5.6 (4.5-11.0) K/uL RBC 4.49 (3.30-5.50) M/uL Hgb 12.9 D (12.0-15.0) g/dL Hct 40.4 (36.0-48.0) % MCV 90 (80-98) fL MCH 29 (27-31) pg MCHC 32 (32-36) % Plt Count 297 (150-400) K/uL Sodium 141 (140-148) mmol/L Potassium 4.0 (3.6-5.2) mmol/L Chloride 103 (100-108) mmol/L Carbon Dioxide 29 (21-32) mmol/L Anion Gap 9.2 (5.0-14.0) mmol/L BUN 15 D (7-18) mg/dL Creatinine 1.0 (0.6-1.0) mg/dL Est Cr Clr Drug Dosing 47.79 mL/min Estimated GFR (MDRD) 55 L (>60) Glucose 98 (74-106) mg/dL Calcium 9.3 (8.5-10.1) mg/dL SARS CoV-2 RNA Rapid VAN Negative Meds: Medications Discontinued Medications Generic Name Dose Route Start Last Admin Trade Name Freq PRN Reason Stop Dose Admin Docusate Sodium 100 mg 07/13/21 07:37 07/13/21 08:14 Docusate Sodium 100 Mg Cap .XX 07/13/21 07:38 100 mg ONETIME ONE Administration Departure - Departure Time of Disposition: 08:37 Disposition: Home, Self-Care 01 Condition: Good Clinical Impression: Impacted cerumen of right ear, Irritation of right ear, Viral URI with cough - Discharge Information *PRESCRIPTION DRUG MONITORING PROGRAM REVIEWED*: Not Applicable *COPY OF PRESCRIPTION DRUG MONITORING REPORT IN PATIENT LEONEL: Not Applicable Referrals: Channing Noel MD [Primary Care Provider] - Forms: ED Department Discharge Additional Instructions: Put rubbing alcohol in the right ear when you get home once. Recheck otherwise as needed. Consider use of Debrox in future to keep ears clear. Sepsis Event Note (ED) - Focused Exam Vital Signs: Vital Signs Temp Pulse Resp BP Pulse Ox 07/13/21 07:22 36.7 C 78 17 182/81 H 92 L 07/13/21 07:19 36.7 C 78 17 182/81 H 92 L - My Orders Last 24 Hours: My Active Orders 07/13/21 07:38 Ear Irrigation [RC] ASDIRECTED 07/13/21 07:49 Chest 2V [CR] Stat - Assessment/Plan Last 24 Hours: My Active Orders 07/13/21 07:38 Ear Irrigation [RC] ASDIRECTED 07/13/21 07:49 Chest 2V [CR] Stat
[2021-07-13] MEDS: Docusate Sodium 100 MG Cap ONE (08:14)
== END 2021-07-13 08:56 | disposition home or self-care (01) ==
LOC: JP.ED 07:00
DX: J06.9 Acute upper respiratory infection, unspecified (principal); H61.21 Impacted cerumen, right ear; I10 Essential (primary) hypertension; K21.9 Gastro-esophageal reflux disease without esophagitis; E03.9 Hypothyroidism, unspecified; E66.9 Obesity, unspecified; Z79.899 Other long term (current) drug therapy; Z88.0 Allergy status to penicillin; Z91.018 Allergy to other foods; Z91.011 Allergy to milk products; Z88.1 Allergy status to other antibiotic agents; Z88.5 Allergy status to narcotic agent; Z20.822 Contact with and (suspected) exposure to COVID-19; Z68.36 Body mass index [BMI] 36.0-36.9, adult
CPT/HCPCS: 36415; 69209; 80048; 85027; 99283; A9270; U0002

== ENCOUNTER 2021-08-01 06:30 | Day surgery (SDC) | payer MEDICARE, BC ==
[2021-08-01] MEDS ORDERED: Sodium Chloride 0.9% 1,000 ML IV SCH (07:00)
[2021-08-01] MEDS ORDERED: Midazolam 1 MG/ML 2 ML SDV ONE (07:16)
[2021-08-01] MEDS ORDERED: Propofol 200 MG/20 ML SDV ONE (07:16)
[2021-08-01] MEDS ORDERED: fentaNYL 100 MCG/2 ML SDV ONE (07:16)
[2021-08-01 09:21] VITALS: BP 135/69; PULSE 65
--- NOTE | 2021-08-01 12:57 | OR ---
DATE OF PROCEDURE: 08/01/2021 SURGEON: Gamaliel Levy MD PROCEDURE: Esophagogastroduodenoscopy. FINDINGS: 1. Approximately 5 cm hiatal hernia. 2. Inflammation at GE junction concerning for reflux disease. COMPLICATIONS: None. HADOOP SOFTWARE ENGINEER: None. PREOPERATIVE DIAGNOSIS: Epigastric pain/concern for gastroesophageal reflux disease. POSTOPERATIVE DIAGNOSIS: Epigastric pain/concern for gastroesophageal reflux disease. RISKS: Risks, benefits, alternatives, and limitations including, but not limited to infection, bleeding, perforation, false positives and false negatives were explained to the patient and they wished to proceed. PROCEDURE IN DETAIL: The patient was placed in left lateral decubitus position. The EGD scope was introduced and advanced atraumatically to the second part of the duodenum. No evidence of duodenitis or ulceration. Within the stomach itself, there was no gastritis or ulceration. The GE junction showed the aforementioned hiatal hernia. The patient also had inflammation and irregular Z-line concerning for reflux. This was biopsied in all 4 quadrants using cold biopsy forceps. Air was removed from the stomach. The esophagus was inspected, without abnormality. The patient tolerated the procedure well. Gamaliel Levy MD /[id number]
== END 2021-08-01 09:25 | disposition home or self-care (01) ==
LOC: JP.SDS 06:30
PROVIDERS: ATTEND Surgery
DX: K31.89 Other diseases of stomach and duodenum (principal); K21.00 Gastro-esophageal reflux disease with esophagitis, without bleeding; K44.9 Diaphragmatic hernia without obstruction or gangrene; I10 Essential (primary) hypertension
CPT/HCPCS: 43239; J2250; J2704; J3010; J7030

== ENCOUNTER 2023-01-03 03:26 | Emergency (ER) | payer MEDICARE, BC ==
[2023-01-03 03:39] VITALS: BP 179/84; PULSE 71
[2023-01-03] MEDS ORDERED: Sodium Chloride 0.9% 1,000 ML IV STA (03:51)
[2023-01-03] MEDS ORDERED: Sodium Chloride 0.9% 10 ML Syringe FLUSH PRN ×2 (03:51→04:25)
[2023-01-03] MEDS: fentaNYL 50 MCG/ML SDV IVPUSH ONE (03:54)
[2023-01-03 04:11] LABS: BASOPHILS PERCENT AUTO 0.8 % (0.1-1.3); EOSINOPHILS ABSOLUTE AUTO 0.34 K/uL (0.00-0.40); EOSINOPHILS PERCENT AUTO 2.8 % (0.0-5.4); HEMATOCRIT 45.5 % (34.3-46.0); HEMOGLOBIN 14.1 g/dL (11.2-15.5); IMMATURE GRAN ABSOLUTE AUTO 0.13 K/uL (0.00-0.23); IMMATURE GRAN PERCENT AUTO 1.1 % (0.0-0.7); LYMPHOCYTES ABSOLUTE AUTO 3.25 K/uL (0.8-3.3); MEAN CORPUSCULAR HEMOGLOBIN 27.9 pg (31.6-35.5); MEAN CORPUSCULAR VOLUME 90.1 fL (81.4-99.0); MONOCYTES ABSOLUTE AUTO 0.74 K/uL (0.20-0.90); MONOCYTES PERCENT AUTO 6.1 % (3.3-12.6); NEUTROPHILS ABSOLUTE AUTO 7.48 K/uL (1.0-7.6); NEUTROPHILS PERCENT AUTO 62.2 % (40.0-78.1); PLATELET COUNT,PLT 332 K/uL (130-375); RED BLOOD CELL COUNT 5.05 M/uL (3.77-5.24)
[2023-01-03] MEDS ORDERED: Iopamidol 612 MG/ML 100 ML Bottle IV PRN (04:25)
[2023-01-03] MEDS ORDERED: Sodium Chloride 0.9% 50 ML IV SCH (04:30)
[2023-01-03 04:46] LABS: ALANINE AMINOTRANSFERASE,ALT 40 U/L (12-78); ALBUMIN 3.6 g/dL (3.4-5.0); ALKALINE PHOSPHATASE 119 U/L (46-116); ANION GAP 11.8 mmol/L (5.0-14.0); ASPARTATE AMNIOTRANSFERASE,AST 42 U/L (15-37); BILIRUBIN TOTAL 0.6 mg/dL (0.2-1.0); BLOOD UREA NITROGEN,BUN 21 mg/dL (7-18); CALCIUM 8.9 mg/dL (8.5-10.1); CARBON DIOXIDE,CO2 27 mmol/L (21-32); CHLORIDE,CL 104 mmol/L (100-108); CREATININE 1.1 mg/dL (0.6-1.0); EST CRCL DRUG DOSING (CG) 42.85 mL/min; ESTIMATED GFR 55 mL/min (>60); GLUCOSE RANDOM 114 mg/dL (74-106); LIPASE 80 U/L (73-393); POTASSIUM,K 3.8 mmol/L (3.6-5.2); PROTEIN TOTAL,TP 7.2 g/dL (6.4-8.2); SODIUM,NA 139 mmol/L (140-148); TROPONIN I HIGH SENSITIVITY 6.2 pg/mL (<=60.3)
[2023-01-03 05:21] LABS: BILIRUBIN,URINE NEGATIVE (NEGATIVE); COLOR,URINE YELLOW (YELLOW); GLUCOSE,URINE NEGATIVE (NEGATIVE); KETONES,URINE NEGATIVE (NEGATIVE); LEUKOCYTE ESTERASE,URINE SMALL (NEGATIVE); NITRITE,URINE NEGATIVE (NEGATIVE); OCCULT BLOOD,URINE NEGATIVE (NEGATIVE); PROTEIN,URINE NEGATIVE (NEGATIVE); UROBILINOGEN,URINE 0.2 EU/dL (0.2-1.0)
[2023-01-03 05:25] LABS: AMORPHOUS SEDIMENT,URINE NOT SEEN; APPEARANCE,URINE SLIGHTLY CLOUDY (CLEAR); BACTERIA,URINE MODERATE; EPITHELIAL CELLS,URINE RARE; MUCUS,URINE NOT SEEN; RBC,URINE 0-5 (0-5); WBC,URINE SEMI-PACKED (0-5)
[2023-01-15] MEDS: fentaNYL 50 MCG/ML SDV IVPUSH ONE (13:37)
== END 2023-01-03 06:31 | disposition home or self-care (01) ==
LOC: JP.ED 03:26
DX: N39.0 Urinary tract infection, site not specified (principal); K21.9 Gastro-esophageal reflux disease without esophagitis; E03.9 Hypothyroidism, unspecified; E66.9 Obesity, unspecified; Z68.34 Body mass index [BMI] 34.0-34.9, adult; Z79.899 Other long term (current) drug therapy; Z88.0 Allergy status to penicillin; Z88.1 Allergy status to other antibiotic agents; Z88.5 Allergy status to narcotic agent; Z91.018 Allergy to other foods
CPT/HCPCS: 36415; 74177; 80053; 81001; 83605; 83690; 84484; 85025; 87086; 87088; 87186; 96360; 99283; 99284; J3010; J3490; J7030; Q9967

== ENCOUNTER 2025-02-08 10:23 | Inpatient (IN) | payer MEDICARE, BC ==
[2025-02-08 11:11] LABS: BASOPHILS ABSOLUTE AUTO 0.06 K/uL (0.00-0.10); BASOPHILS PERCENT AUTO 0.5 % (0.1-1.3); EOSINOPHILS ABSOLUTE AUTO 0.32 K/uL (0.00-0.40); EOSINOPHILS PERCENT AUTO 2.8 % (0.0-5.4); HEMOGLOBIN 13.2 g/dL (11.2-15.5); IMMATURE GRAN ABSOLUTE AUTO 0.07 K/uL (0.00-0.23); IMMATURE GRAN PERCENT AUTO 0.6 % (0.0-0.7); LYMPHOCYTES ABSOLUTE AUTO 2.06 K/uL (0.8-3.3); LYMPHOCYTES PERCENT AUTO 18.2 % (11.4-47.7); MEAN CORPUSCULAR HGB CONC 31.4 g/dL (31.6-35.5); MEAN CORPUSCULAR VOLUME 92.3 fL (81.4-99.0); MONOCYTES ABSOLUTE AUTO 0.66 K/uL (0.20-0.90); MONOCYTES PERCENT AUTO 5.8 % (3.3-12.6); NEUTROPHILS ABSOLUTE AUTO 8.13 K/uL (1.0-7.6); NEUTROPHILS PERCENT AUTO 72.1 % (40.0-78.1); PLATELET COUNT,PLT 268 K/uL (130-375); RED BLOOD CELL COUNT 4.55 M/uL (3.77-5.24); WHITE BLOOD CELL COUNT,WBC 11.3 K/uL (3.2-11.0)
[2025-02-08] MEDS ORDERED: Naloxone 0.4 MG/ML SDV IVPUSH PRN ×2 (11:25→13:11)
[2025-02-08 11:32] LABS: ALANINE AMINOTRANSFERASE,ALT 24 U/L (12-78); ALBUMIN 3.4 g/dL (3.4-5.0); ALKALINE PHOSPHATASE 105 U/L (46-116); ASPARTATE AMNIOTRANSFERASE,AST 13 U/L (15-37); BILIRUBIN TOTAL 0.6 mg/dL (0.2-1.0); BLOOD UREA NITROGEN,BUN 18 mg/dL (7-18); C-REACTIVE PROTEIN 1.74 mg/dL (<0.50); CALCIUM 9.5 mg/dL (8.5-10.1); CARBON DIOXIDE,CO2 27 mmol/L (21-32); CHLORIDE,CL 105 mmol/L (100-108); CREATININE 1.1 mg/dL (0.6-1.0); EST CRCL DRUG DOSING (CG) 41.68 mL/min; ESTIMATED GFR 54 mL/min (>60); GLUCOSE RANDOM 100 mg/dL (74-106); PROTEIN TOTAL,TP 6.8 g/dL (6.4-8.2); SODIUM,NA 141 mmol/L (140-148)
[2025-02-08 11:35] LABS: LACTIC ACID 1.3 mmol/L (0.4-2.0)
[2025-02-08] MEDS: Morphine 4 MG/ML Syringe IVPUSH ONE (11:56)
[2025-02-08] MEDS: Sodium Chloride 0.9% 80 ML IV SCH (12:40)
[2025-02-08] MEDS: Iopamidol 612 MG/ML 100 ML Bottle IV PRN (12:40)
[2025-02-08] MEDS: Morphine 2 MG/ML SYRINGE IVPUSH ONE (13:26)
[2025-02-08 14:01] LABS: APPEARANCE,URINE TURBID (CLEAR); BILIRUBIN,URINE NEGATIVE (NEGATIVE); COLOR,URINE YELLOW (YELLOW); GLUCOSE,URINE NEGATIVE (NEGATIVE); KETONES,URINE NEGATIVE (NEGATIVE); LEUKOCYTE ESTERASE,URINE MODERATE (NEGATIVE); NITRITE,URINE POSITIVE (NEGATIVE); OCCULT BLOOD,URINE MODERATE (NEGATIVE); PROTEIN,URINE 100 mg/dL (NEGATIVE); UROBILINOGEN,URINE 0.2 EU/dL (0.2-1.0)
[2025-02-08] MEDS: Ertapenem 1 GM in Sodium Chloride 0.9% 50 ML IV ONE (14:19)
[2025-02-08 14:23] LABS: AMORPHOUS SEDIMENT,URINE NOT SEEN; BACTERIA,URINE MANY; EPITHELIAL CELLS,URINE FEW; MUCUS,URINE FEW; WBC,URINE PACKED (0-5)
[2025-02-08] MEDS: Ondansetron 4 MG/2 ML SDV IVPUSH ONE (17:45)
[2025-02-08] MEDS ORDERED: oxyCODONE 5 MG Tab PO PRN (18:11)
[2025-02-08] MEDS ORDERED: Ondansetron 4 MG/2 ML SDV IV PRN (18:11)
[2025-02-08] MEDS ORDERED: Morphine 2 MG/ML SYRINGE IVPUSH PRN (18:11)
[2025-02-08] MEDS ORDERED: Sennosides/Docusate Sodium 50-8.6 MG Tab PO PRN (18:11)
[2025-02-08] MEDS ORDERED: Ondansetron 4 MG Tab.DIS PO PRN (18:11)
[2025-02-08] MEDS ORDERED: Acetaminophen 325 MG Tab PO PRN (18:11)
[2025-02-08] MEDS ORDERED: Magnesium Hydroxide 400 MG/5 ML Susp 30 ML Cup PO PRN (18:11)
[2025-02-08] MEDS: Sodium Chloride 0.9% 1,000 ML IV SCH (18:45)
[2025-02-08] MEDS: Melatonin 3 MG Tab PO SCH (21:03)
[2025-02-08] MEDS: Lactobacillus Rhamnosus GG (Probiotic) Cap PO SCH (21:04)
[2025-02-09 06:02] LABS: HEMATOCRIT 37.2 % (34.3-46.0); HEMOGLOBIN 11.8 g/dL (11.2-15.5); MEAN CORPUSCULAR HEMOGLOBIN 29.2 pg (31.6-35.5); MEAN CORPUSCULAR HGB CONC 31.7 g/dL (31.6-35.5); MEAN CORPUSCULAR VOLUME 92.1 fL (81.4-99.0); RED BLOOD CELL COUNT 4.04 M/uL (3.77-5.24); WHITE BLOOD CELL COUNT,WBC 9.8 K/uL (3.2-11.0)
[2025-02-09 06:21] LABS: ANION GAP 5.5 mmol/L (5.0-14.0); CALCIUM 8.8 mg/dL (8.5-10.1); EST CRCL DRUG DOSING (CG) 45.85 mL/min; POTASSIUM,K 3.9 mmol/L (3.6-5.2)
[2025-02-09] MEDS: Pantoprazole 40 MG Tab.CR PO SCH (08:10)
[2025-02-09] MEDS ORDERED: Trolamine Salicylate/Aloe Vera 10% Crm 85 GM Tube TOP PRN (08:38)
[2025-02-09] MEDS: Celecoxib 200 MG Cap PO SCH (09:02)
[2025-02-09] MEDS: Allopurinol 100 MG Tab PO SCH (09:02)
[2025-02-09] MEDS: amLODIPine 5 MG Tab PO SCH (09:03)
[2025-02-09] MEDS: Metoprolol Succinate 50 MG Tab.ER PO SCH (09:05)
[2025-02-09] MEDS: PREDNISOLONE EYERT SCH (10:44)
[2025-02-09] MEDS: MOXIFLOXACIN EYERT SCH (10:44)
[2025-02-09] MEDS: BROMFENAC EYERT SCH (10:44)
[2025-02-09] MEDS: PREDNISOLONE EYELF SCH (10:45)
[2025-02-09] MEDS: MOXIFLOXACIN EYELF SCH (10:45)
[2025-02-09] MEDS: BROMFENAC EYELF SCH (10:45)
[2025-02-10 13:26] VITALS: BP 122/70; PULSE 64
== END 2025-02-10 13:34 | disposition home or self-care (01) | DRG 690 ==
LOC: JP.ED 10:23 → JP.MS 17:31
PROVIDERS: ADMIT Internal Medicine; ATTEND Internal Medicine
DX: N13.6 Pyonephrosis (principal); H54.7 Unspecified visual loss; I10 Essential (primary) hypertension; B96.20 Unspecified Escherichia coli [E. coli] as the cause of diseases classified elsewhere; K59.09 Other constipation; Z91.011 Allergy to milk products; Z91.018 Allergy to other foods; Z88.1 Allergy status to other antibiotic agents; Z91.048 Other nonmedicinal substance allergy status; Z88.5 Allergy status to narcotic agent; K21.9 Gastro-esophageal reflux disease without esophagitis; K44.9 Diaphragmatic hernia without obstruction or gangrene; G89.29 Other chronic pain; M54.9 Dorsalgia, unspecified; K80.20 Calculus of gallbladder without cholecystitis without obstruction; M10.9 Gout, unspecified; M06.9 Rheumatoid arthritis, unspecified; F41.9 Anxiety disorder, unspecified; E03.9 Hypothyroidism, unspecified; E66.9 Obesity, unspecified; Z68.37 Body mass index [BMI] 37.0-37.9, adult; Z90.49 Acquired absence of other specified parts of digestive tract; Z90.710 Acquired absence of both cervix and uterus; Z79.899 Other long term (current) drug therapy; Z88.8 Allergy status to other drugs, medicaments and biological substances; Z88.0 Allergy status to penicillin; Z98.890 Other specified postprocedural states
CPT/HCPCS: 36415; 74177 ×2; 80053; 81001; 83605; 83690; 85025; 86140; 87086; 87088; 87186; J1335; J2270 ×2; Q9967; 51701; 51702; 80048; 85027; 99222; 99231; 99238; A9270-GY; J0713; J2405; J7030

== ENCOUNTER 2025-02-15 19:49 | Emergency (ER) | payer MEDICARE, BC ==
[2025-02-15 20:44] LABS: BASOPHILS ABSOLUTE AUTO 0.07 K/uL (0.00-0.10); BASOPHILS PERCENT AUTO 0.7 % (0.1-1.3); EOSINOPHILS ABSOLUTE AUTO 0.36 K/uL (0.00-0.40); EOSINOPHILS PERCENT AUTO 3.6 % (0.0-5.4); HEMATOCRIT 43.2 % (34.3-46.0); HEMOGLOBIN 13.4 g/dL (11.2-15.5); IMMATURE GRAN ABSOLUTE AUTO 0.07 K/uL (0.00-0.23); IMMATURE GRAN PERCENT AUTO 0.7 % (0.0-0.7); LYMPHOCYTES ABSOLUTE AUTO 3.06 K/uL (0.8-3.3); LYMPHOCYTES PERCENT AUTO 30.4 % (11.4-47.7); MEAN CORPUSCULAR HEMOGLOBIN 28.5 pg (31.6-35.5); MEAN CORPUSCULAR VOLUME 91.9 fL (81.4-99.0); MONOCYTES ABSOLUTE AUTO 0.76 K/uL (0.20-0.90); MONOCYTES PERCENT AUTO 7.5 % (3.3-12.6); NEUTROPHILS ABSOLUTE AUTO 5.76 K/uL (1.0-7.6); NEUTROPHILS PERCENT AUTO 57.1 % (40.0-78.1); PLATELET COUNT,PLT 332 K/uL (130-375); WHITE BLOOD CELL COUNT,WBC 10.1 K/uL (3.2-11.0)
[2025-02-15 20:48] LABS: APPEARANCE,URINE SLIGHTLY CLOUDY (CLEAR); BILIRUBIN,URINE NEGATIVE (NEGATIVE); COLOR,URINE YELLOW (YELLOW); GLUCOSE,URINE NEGATIVE (NEGATIVE); KETONES,URINE NEGATIVE (NEGATIVE); LEUKOCYTE ESTERASE,URINE TRACE (NEGATIVE); NITRITE,URINE NEGATIVE (NEGATIVE); OCCULT BLOOD,URINE NEGATIVE (NEGATIVE); PROTEIN,URINE NEGATIVE (NEGATIVE); UROBILINOGEN,URINE 0.2 EU/dL (0.2-1.0)
[2025-02-15 20:52] LABS: RBC,URINE 0-5 (0-5)
[2025-02-15 20:53] LABS: AMORPHOUS SEDIMENT,URINE NOT SEEN; BACTERIA,URINE MODERATE; EPITHELIAL CELLS,URINE MODERATE; MUCUS,URINE NOT SEEN
[2025-02-15 21:16] LABS: ALANINE AMINOTRANSFERASE,ALT 26 U/L (12-78); ALBUMIN 3.6 g/dL (3.4-5.0); ALKALINE PHOSPHATASE 113 U/L (46-116); ANION GAP 11.1 mmol/L (5.0-14.0); ASPARTATE AMNIOTRANSFERASE,AST 17 U/L (15-37); BILIRUBIN TOTAL 0.4 mg/dL (0.2-1.0); BLOOD UREA NITROGEN,BUN 16 mg/dL (7-18); CALCIUM 9.3 mg/dL (8.5-10.1); CARBON DIOXIDE,CO2 25 mmol/L (21-32); CHLORIDE,CL 105 mmol/L (100-108); EST CRCL DRUG DOSING (CG) 45.85 mL/min; ESTIMATED GFR 61 mL/min (>60); GLUCOSE RANDOM 97 mg/dL (74-106); POTASSIUM,K 3.9 mmol/L (3.6-5.2); PROTEIN TOTAL,TP 7.3 g/dL (6.4-8.2); SODIUM,NA 141 mmol/L (140-148)
[2025-02-15 21:18] LABS: TROPONIN I HIGH SENSITIVITY < 4.0 pg/mL (<=60.3)
[2025-02-15] MEDS: Sodium Chloride 0.9% 1,000 ML IV ONE (21:39)
[2025-02-15] MEDS: Sodium Chloride 0.9% 10 ML Syringe FLUSH PRN (21:45)
[2025-02-15] MEDS: Iopamidol 612 MG/ML 100 ML Bottle IV SCH (21:59)
[2025-02-15] MEDS: Sodium Chloride 0.9% 80 ML IV SCH (21:59)
[2025-02-15] MEDS: Sodium Chloride 0.9% 1,000 ML IV SCH (23:10)
[2025-02-16] MEDS: Sulfamethoxazole/Trimethoprim 800-160 MG Tab PO ONE (01:28)
[2025-02-17 12:05] VITALS: BP 141/60; PULSE 88
== END 2025-02-16 01:43 | disposition home or self-care (01) ==
LOC: JP.ED 19:49
DX: N39.0 Urinary tract infection, site not specified (principal); I10 Essential (primary) hypertension; K21.9 Gastro-esophageal reflux disease without esophagitis; E03.9 Hypothyroidism, unspecified; E66.9 Obesity, unspecified; Z90.710 Acquired absence of both cervix and uterus; R74.02 Elevation of levels of lactic acid dehydrogenase [LDH]; Z79.899 Other long term (current) drug therapy; Z88.8 Allergy status to other drugs, medicaments and biological substances; Z88.1 Allergy status to other antibiotic agents; Z91.018 Allergy to other foods; Z88.0 Allergy status to penicillin; Z88.5 Allergy status to narcotic agent; Z91.011 Allergy to milk products
CPT/HCPCS: 36415; 74177; 80053; 81001; 83605; 83690; 84484; 85025; 86140; 87040; 87086; 93005; 93010; 96360; 96361; 99284; A9270; J7030; Q9967